=== PATIENT | female | born 1960 | race Asian ===

== ENCOUNTER → 2023-05-14 08:08 | Outpatient (CLI) | payer OTHER, SELFPAY ==
[2023-05-14 09:27] LABS: Add Manual Diff / Slide Review NO; Basophils Absolute Auto 0 /uL (0-100); Basophils Percent Auto 0.2 % (0-2); Eosinophils Absolute Auto 100 /uL (0-450); Hematocrit 34.3 % (36-46); Hemoglobin 11.4 g/dL (12.0-16.0); Lymphocytes Absolute Auto 2400 /uL (1100-4500); Lymphocytes Percent Auto 48.9 % (25-40); Mean Corpuscular HGB Conc 33.3 % (30-36); Mean Corpuscular Hemoglobin 29.4 PG (26-34); Mean Corpuscular Volume 88.3 fL (80-100); Monocytes Absolute Auto 200 /uL (0-900); Monocytes Percent Auto 4.8 % (3-14); Neutrophils Absolute Auto 2200 /uL (1500-7000); Neutrophils Percent Auto 45.1 % (50-75); Platelet Count 255 X10^3/uL (150-400); Red Blood Cell Count 3.88 X10^6/uL (4.0-5.2); White Blood Cell Count 4.9 X10^3/uL (4.5-11.0)
[2023-05-14 09:50] LABS: Alanine Aminotransferase 27 IU/L (<35); Albumin 4.3 g/dL (3.5-5.0); Albumin Globulin Ratio 1.5 (1.0-2.8); Alkaline Phosphatase 70 U/L (38-126); Aspartate Aminotransferase 34 IU/L (14-36); BUN Creatinine Ratio 21.3 (6-22); Bilirubin Total 0.4 mg/dL (0.2-1.3); Blood Urea Nitrogen 13 mg/dL (7-17); Calcium 9.3 mg/dL (8.4-10.2); Carbon Dioxide 27 mmol/L (22-32); Chloride 105 mmol/L (98-107); Cholesterol 142 mg/dL (140-199); Estimated Glomerular Filt Rate > 60 mL/min (>60); Globulin 2.9 g/dL (1.7-4.1); Glucose 96 mg/dL (80-110); HDL Cholesterol 43 mg/dL (40-60); HEMOLYSIS < 15 (0-50); LDL Cholesterol Calculated 80 mg/dL (<100); Sodium 138 mmol/L (137-145); Total Protein 7.2 g/dL (6.3-8.2); Triglycerides 94 mg/dL (35-150)
[2023-05-14 09:51] LABS: Hemoglobin A1C% w Est Avg Glu 6.4 % (4.0-6.0)
[2023-05-14 09:54] LABS: Creatinine Urine Random 76.3 mg/dL
[2023-05-14 09:59] LABS: Microalbumin Urine Random < 0.6 mg/dL (0-1.6)
[2023-05-14 10:41] LABS: HIV 1 & 2 Ab/Ag 4th Gen Combo NEGATIVE (NEGATIVE); Hep C Virus Ab w/Reflex Quant NEGATIVE s/c (NEGATIVE)
== END ==
PROVIDERS: PCP Family Medicine; Referring Provider Family Medicine; Visit Provider Family Medicine
DX: I69.30 Unspecified sequelae of cerebral infarction (principal); I10 Essential (primary) hypertension; Z00.00 Encounter for general adult medical examination without abnormal findings
CPT/HCPCS: 36415; 80053; 80061; 82043; 82570; 83036; 85025; 86803; 87389

== ENCOUNTER → 2023-07-26 10:40 | Outpatient (CLI) | payer OTHER, SELFPAY ==
[2023-07-27 14:31] LABS: Candida species Negative (Negative); Gardnerella vaginalis Negative (Negative); Trichomoas vaginalis Negative (Negative)
== END ==
PROVIDERS: PCP Family Medicine; Visit Provider Physician Assistant Medical
DX: N89.8 Other specified noninflammatory disorders of vagina (principal)
CPT/HCPCS: 87480; 87510; 87660

== ENCOUNTER → 2023-08-11 14:45 | Outpatient (CLI) | payer OTHER, SELFPAY ==
--- NOTE | 2023-08-11 14:45 | DI.US.S_ITS ---
PROCEDURE: US PELVIC COMPLETE INDICATIONS: FOLLOW-UP OVARIAN CYST TECHNIQUE: Real-time scanning was performed of the pelvic organs, with image documentation. Additional endovaginal scanning was necessary due to incomplete visualization of the adnexal and endometrial structures by transabdominal scanning. COMPARISON: None. FINDINGS: Uterus: Absent Ovaries: Right ovary is not seen. Mildly enlarged left ovary measures a volume of 1.5 centimeters. A cyst measures up to 2.9 x 2 centimeters. No significant septations or internal solid component. Other: No pathologic free fluid. IMPRESSION: No priors are available for comparison. 2.9 x 2 centimeter left ovarian simple cyst is present. On ultrasound, no significant septations or solid component is present. By O-RADS criteria, no dedicated follow-up is necessary. O-RADS 2 Dictated by: Nnamdi Francis M.D. on 08/18/2023 at 10:00 Approved by: Nnamdi Francis M.D. on 08/18/2023 at 10:02
== END ==
PROVIDERS: PCP Family Medicine; Referring Provider Family Medicine; Visit Provider Family Medicine
DX: N83.201 Unspecified ovarian cyst, right side (principal); N83.202 Unspecified ovarian cyst, left side
CPT/HCPCS: 76830; 76856

== ENCOUNTER → 2023-11-17 16:00 | Outpatient (CLI) | payer MEDICARE, OTHER, SELFPAY ==
--- NOTE | 2023-11-17 16:03 | DI.MG.S_ITS ---
BILATERAL DIGITAL SCREENING MAMMOGRAM 3D/2D WITH CAD: 11/17/2023 No prior exams were available for comparison. Both breasts are heterogeneously dense, which may obscure small masses (category c / 51-75% glandular tissue). Current study was also evaluated with a Computer Aided Detection (CAD) system. No significant masses, calcifications, or other findings are seen in either breast. IMPRESSION: NEGATIVE There is no mammographic evidence of malignancy. A 1 year screening mammogram is recommended. Based on the Tyrer Cuzick model (a risk assessment model) the patient's lifetime risk is 13.9% and her 10 year risk is 6.9%. According to the ACR, ACS, and NCCN guidelines, an annual breast MRI exam along with mammogram is recommended if the patient's lifetime risk is 20% or greater. This exam was interpreted at Station ID: [id number]. NOTE: For mammograms, a report in lay terms will be sent to the patient. Approximately 15% of breast malignancies will not be visualized mammographically. In the management of a palpable breast mass, a negative mammogram must not discourage biopsy of a clinically suspicious lesion. Electronically Signed By: Nnamdi rivas/[email or web address]:11/18/2023 08:43:14 letter sent: Normal Exam ACR BI-RADS Category 1: Negative [id number]
== END ==
PROVIDERS: PCP Family Medicine; Referring Provider Family Medicine; Visit Provider Family Medicine
DX: Z12.31 Encounter for screening mammogram for malignant neoplasm of breast (principal); R92.333 Mammographic heterogeneous density, bilateral breasts
CPT/HCPCS: 77063; 77067

== ENCOUNTER → 2024-01-22 14:48 | Outpatient (CLI) | payer MEDICARE, OTHER, SELFPAY | PROVIDERS: PCP Family Medicine; Visit Provider Nurse Practitioner Family | DX: R30.0 Dysuria (principal) | CPT/HCPCS: 87077; 87086; 87186 ==

== ENCOUNTER → 2024-05-23 07:56 | Outpatient (CLI) | payer MEDICARE, OTHER, SELFPAY ==
[2024-05-23 08:39] LABS: Add Manual Diff / Slide Review NO; Basophils Absolute Auto 0 /uL (0-100); Basophils Percent Auto 0.1 % (0-2); Eosinophils Absolute Auto 0 /uL (0-450); Eosinophils Percent Auto 0.9 % (2-4); Hematocrit 38.2 % (36-46); Hemoglobin 12.8 g/dL (12.0-16.0); Lymphocytes Absolute Auto 2200 /uL (1100-4500); Lymphocytes Percent Auto 43.7 % (25-40); Mean Corpuscular HGB Conc 33.6 % (30-36); Mean Corpuscular Hemoglobin 30.3 PG (26-34); Mean Corpuscular Volume 90.1 fL (80-100); Monocytes Absolute Auto 300 /uL (0-900); Monocytes Percent Auto 6.9 % (3-14); Neutrophils Absolute Auto 2400 /uL (1500-7000); Neutrophils Percent Auto 48.4 % (50-75); Platelet Count 264 X10^3/uL (150-400); Red Blood Cell Count 4.24 X10^6/uL (4.0-5.2)
[2024-05-23 08:48] LABS: Hemoglobin A1C% w Est Avg Glu 5.9 % (4.0-6.0)
[2024-05-23 09:00] LABS: Alanine Aminotransferase 28 IU/L (<35); Albumin 4.5 g/dL (3.5-5.0); Albumin Globulin Ratio 1.5 (1.0-2.8); Alkaline Phosphatase 93 U/L (38-126); Aspartate Aminotransferase 28 IU/L (14-36); BUN Creatinine Ratio 22.1 (6-22); Bilirubin Total 0.6 mg/dL (0.2-1.3); Blood Urea Nitrogen 15 mg/dL (7-17); Calcium 9.5 mg/dL (8.4-10.2); Carbon Dioxide 26 mmol/L (22-32); Chloride 106 mmol/L (98-107); Cholesterol 127 mg/dL (140-199); Estimated Glomerular Filt Rate > 60 mL/min (>60); Globulin 3.1 g/dL (1.7-4.1); Glucose 101 mg/dL (80-110); HDL Cholesterol 52 mg/dL (40-60); HEMOLYSIS < 15 (0-50); LDL Cholesterol Calculated 64 mg/dL (<100); Potassium 4.1 mmol/L (3.4-5.1); Sodium 140 mmol/L (137-145); Total Protein 7.6 g/dL (6.3-8.2); Triglycerides 55 mg/dL (35-150)
[2024-05-23 09:02] LABS: HEMOLYSIS < 15 (0-50); Iron 87 ug/dL (37-170)
[2024-05-23 09:12] LABS: Percent Iron Saturation 28 % (15-50); Total Iron Binding Capacity 307 ug/dL (265-497); Transferrin 236 mg/dL (206-381); Vitamin D 25 Hydroxy (D3) 43.8 ng/mL (30.0-100.0)
[2024-05-23 09:32] LABS: Ferritin 41 ng/mL (11-264)
[2024-05-23 18:35] LABS: Creatinine Urine Random 71.37 mg/dL
[2024-05-23 18:39] LABS: Microalbumin Urine Random < 0.6 mg/dL (0-1.6)
== END ==
PROVIDERS: PCP Family Medicine; Referring Provider Family Medicine; Visit Provider Family Medicine
DX: I10 Essential (primary) hypertension (principal); R73.03 Prediabetes; D64.9 Anemia, unspecified; Z13.21 Encounter for screening for nutritional disorder; I69.30 Unspecified sequelae of cerebral infarction; E55.9 Vitamin D deficiency, unspecified
CPT/HCPCS: 36415; 80053; 80061; 82043; 82306; 82570; 82728; 83036; 83540; 83550; 85025

== ENCOUNTER → 2024-06-17 11:19 | Outpatient (CLI) | payer MEDICARE, OTHER, SELFPAY | PROVIDERS: Family Provider Family Medicine; PCP Family Medicine; Visit Provider Physician Assistant Medical | DX: R30.0 Dysuria (principal) | CPT/HCPCS: 87077; 87086; 87186 ==

== ENCOUNTER 2024-10-20 13:45 | Outpatient (RCR) | payer MEDICARE, OTHER, SELFPAY ==
--- NOTE | 2024-08-09 15:37 | PT.OIE ---
Current Diagnoses Hemiplegia and hemiparesis following cerebral infarction affecting left non-dominant side (08/09/24) Other abnormalities of gait and mobility (08/09/24) Unspecified abnormalities of gait and mobility (08/09/24) Other lack of coordination (08/09/24) Weakness (08/09/24) Past Medical History (Last Updated 07/26/23 @ 19:54 by Brianne Echeverria PA-C) Atrophic vaginitis History of colonic polyps Ovarian cyst, bilateral Urinary, incontinence, stress female Past Surgical History (Last Updated 05/11/23 @ 22:27 by Kedar Lemus MD) History of cholecystectomy History of hysterectomy Visit Care Team Role Provider Type Kedar Lemus MD Family Provider Physician Primary Care Provider Specialty: Family Practice Obstetrics Address: [facility] [place], [address] Email: [email or web address] Bayron Goncalves MD Attending Provider Non-Staff Referring Provider Specialty: Neurology Address: [address] [place], [address] Email: Physical Therapy Initial Evaluation PT-OP-A Visit Information Start: 08/08/24 15:49 Freq: Status: Active Protocol: Document 08/09/24 10:44 NM (Rec: 08/09/24 12:18 NM [id number]) Out-Patient Physical Therapy Visit Information Visit Information Visit Type Initial Evaluation Visit Note KX after 19 visits Visit Start Time 10:50 Visit Stop Time 11:35 Visit Number 1 Evaluation Information Evaluation Date 08/09/24 Precautions Precautions Hx CVA, falls PT-OP-B Current Condition Start: 08/08/24 15:49 Freq: Status: Active Protocol: Document 08/09/24 10:44 NM (Rec: 08/09/24 12:18 NM [id number]) Current Condition History of Current Condition Current Complaints gait, unstable surfaces, R knee pain w/ length gait History of Current Condition Pt had a stroke in March 01, 2021. Has L hemiplegia; R dominant. Pt has had extensive PT since her stroke in 2020. Pt was in w/c for 4 months following her stroke, then progressed to cane with 3 legs . Previously using an spc for mobility, now only uses for hiking or unstable surfaces. Pt has been ambulated without the cane for 4-5 months now. Pt likes to hike, takes the cane when hiking but able to ambulate without cane for household and most community mobility. Pt did have an AFO for her L ankle to correct her gait but has not used it for 2 years. When ambulating for long times, has foot slap. She stopped going to [facility] for PT 2 weeks ago. She has been doing a lot of muscle strengthening in PT. She recently saw her neurologist, had botox (last dose in June). Next expected dose end of September. Pt has been doing a youtube Dr. June Jansen and [employer] for 2 hours ea day for exercises. Pt reports pretty cj with balance, she has had 2 falls 1 year ago. Currently seeing OT for her hand; hx of speech therapy. Pt reports able to do all ADLs/ IADLs including cooking, cleaning, dressing, independently but slower than normal. Treatment Goals Patient/Caregiver Goals walk better (lift foot better, less to side, L elbow curling ), kicking for swimming PT-OP-C Subjective Start: 08/08/24 15:49 Freq: Status: Active Protocol: Document 08/09/24 10:44 NM (Rec: 08/09/24 12:18 NM [id number]) OP-PT Subjective Patient Comments Patient Comments Pt consents to participate in PT evaluation OP-PT Pain Assessment Comments Pain Comments Pt denies pain during evaluation but does reports R knee pain with length gait PT-OP-D Balance Start: 08/08/24 15:49 Freq: Status: Active Protocol: Document 08/09/24 10:44 NM (Rec: 08/09/24 12:18 NM [id number]) Balance Tests Single Limb Standing Single Limb- Right 30 sec w/ increased sway, med/ lat instability at ankle Single Limb- Left 8 sec w/ increased med/lat instability at ankle Tandem Tandem Standing 30 sec w/ LLE leading PT-OP-G Mobility & Gait Start: 08/08/24 15:49 Freq: Status: Active Protocol: Document 08/09/24 10:44 NM (Rec: 08/09/24 12:18 NM [id number]) OP Mobility Evaluation Bed Mobility Rolling IND Supine to and from Sit IND Transfers Sit to Stand IND from standard chair. Demos tendency for L knee extension more quickly than R knee as transitioning to stance, slight weight shift toward RLE OP Gait Assessment Gait Gait Assistance Required: Standby Assistance Distance (Feet) 150 Assistive Devices Assistive Device None Gait Deviations General Gait Pattern Antalgic,Decreased Feet Clearance Factors Limiting Gait Function Factors Limiting Gait Function Abnormal Tonal Influences, Decreased Activity Tolerance, Decreased Strength,Poor Balance Comments Gait Comments Demos mild L hip circumduction , L plantarflexion and drags toes during swing; as fatigues , demos L foot slap. Slight hip hike on L to complete swing following circumduction. Demos tendency for quick L knee extension during stance with transition into mild hyperextension as fatigues. LUE begins to flex at elbow and wrist and supinate with both effort and fatigue. Limited trunk rotation, slight R lateral lean PT-OP-H Neuro Start: 08/08/24 15:49 Freq: Status: Active Protocol: Document 08/09/24 10:44 NM (Rec: 08/09/24 12:18 NM [id number]) Sensation Evaluation Comments Summary Comments BLE equally intact to light touch sensation Coordination Evaluation Upper Extremity Tests Right Finger to Nose Test Normal Performance Finger to Finger Test Normal Performance Alternate Nose to Finger Test Normal Performance Pronation/Supination Test Normal Performance Left Finger to Nose Test Moderate Impairment Finger to Finger Test Minimal Impairment Alternate Nose to Finger Test Moderate Impairment Pronation/Supination Test Moderate Impairment Lower Extremity Tests Right Alternate Heel to Knee; Heel to Toe Test Normal Performance Heel on Perez Test Normal Performance Foot Tapping Test Normal Performance Drawing a [place] w/Foot Test Normal Performance Left Alternate Heel to Knee; Heel to Toe Test Moderate Impairment Heel on Perez Test Moderate Impairment Foot Tapping Test Minimal Impairment Drawing a [place] w/Foot Test Minimal Impairment Muscle Tone Tone Assessment Left Upper Extremity Muscle Tone Comments Tendency for L elbow flex, wrist flex, and finger flex, supination with exertion Posturally thumb and MPJ hyperextension Left Lower Extremity Flexor Tone Description Normal Extensor Tone Description Mild Hypertonicity Muscle Tone Comments tendency for knee ext, plantarflexion and ankle inversion PT-OP-K Range of Motion Start: 08/08/24 15:49 Freq: Status: Active Protocol: Document 08/09/24 10:44 NM (Rec: 08/09/24 12:18 NM [id number]) Ankle and Foot Goniometric Range of Motion Ankle and Foot Left Dorsiflexion with Knee Flexed 10 Dorsiflexion with Knee Extended 8 Plantarflexion 40 Comments demos tendency for inversion PT-OP-M Strength Start: 08/08/24 15:49 Freq: Status: Active Protocol: Document 08/09/24 10:44 NM (Rec: 08/09/24 12:18 NM [id number]) Hip Strength Hip Manual Muscle Testing Right Flexion (L2) 4+ Good+ Extension (S1) 4 Good Abduction 4 Good Adduction 4+ Good+ External Rotation 4+ Good+ Internal Rotation 4+ Good+ Left Flexion (L2) 4- Good- Extension (S1) 3+ Fair+ Abduction 4- Good- Adduction 4 Good External Rotation 4- Good- Internal Rotation 4 Good Knee Strength Knee Manual Muscle Testing Right Flexion (S2) 4+ Good+ Extension (L3) 4+ Good+ Left Flexion (S2) 4- Good- Extension (L3) 4- Good- Comments audible crepitus Ankle/Foot Strength Ankle and Foot Manual Muscle Testing Right Dorsiflexion (L4) 4+ Good+ Plantarflexion (S1) 4+ Good+ Inversion 4+ Good+ Eversion (S1) 4+ Good+ Comments tested in sitting Left Dorsiflexion (L4) 3+ Fair+ Plantarflexion (S1) 4 Good Inversion 4 Good Eversion (S1) 3 Fair Comments tested in sitting PT-OP-T Assessment and Plan Start: 08/08/24 15:49 Freq: Status: Active Protocol: Document 08/09/24 10:44 NM (Rec: 08/09/24 12:18 NM [id number]) Physical Therapy Assessment Rehab Potential Rehabilitation Potential Good Evaluation Complexity Clinical Presentation at Evaluation Stable Impairments Impairments Activity Tolerance,Balance, Functional Activities, Functional Mobility,Gait,Pain, Posture,ROM,Sensation,Soft Tissue Mobility,Strength,Tone, Transfers Other Concerns Barriers to Rehabilitation Pt has had PT for several years to address gait and strength deficits. She is planning several week-long trips during current plan of care (cross country and international) that will limit her ability to attend PT during current plan of care; pt resistant to shorter plan of care with plan to come back with new referral due to travel even with education about how must see PT within current plan of care. Goals Four Impairment difficulty with kicking LLE for swimming, 3+/5 MMT Short Term Goal (STG) Pt will increase L hip ext strength to at least 4/5 MMT in order to improve ability to kick at edge of pool STG Duration 8 weeks Three Impairment 30 sec STS score 8 from standard chair Short Term Goal (STG) Pt will demo L knee hyperextension with ascent during STS transfers <50% of the time without cueing in order to demonstrate increased quad strength STG Duration 6 weeks Custodial Goal (LTG) Pt will increase 30 sec STS score >10 from standard chair to demonstrate improved body mechanics during transfers and increased BLE strength LTG Duration 12 weeks Two Impairment activity tolerance, balance Custodial Goal (LTG) If appropriate, pt will be educated on use of trek poles vs spc for stability during hiking LTG Duration 12 weeks One Impairment 6 MWT distance 1009 ft, no AD, no AFO Short Term Goal (STG) Pt will demonstrate more equal step length and less foot slap >50% of the time in order to demonstrate improved LLE strength STG Duration 6 weeks Manager Cardiac Cath Goal (LTG) Pt will increase 6 MWT distance >1000 ft with more equal step length and without dragging L foot LTG Duration 12 weeks Assessment Summary Assessment Pt is a 64 y.o. female with L hemiplegia presenting with abnormalities with gait, balance, and strength related to her CVA. Pt had her CVA is 2020; she had had previous PT for her condition. Pt is active and participates in at least 2 hours of exercise daily, in addition to hikes and ADLs. She demos L plantarflexion tone and L hip circumduction during swing phase of gait and mild hyperextension with stance phase; pt does demonstrate L foot slap as fatigue occurs. Does not use an AD for mobility except to hike and no longer uses her AFO. Increased flexor tone LUE during effort and gait. Pt demos knee hyperextension during sit to stand transfers. PT educated pt on exam findings and plan of care. Pt would benefit from skilled PT for progressive strengthening and gait training in order to improve symptom management and mobility. Physical Therapy Plan Frequency and Duration Frequency of Treatment 2x/Week Duration of treatment (weeks) 12 Plan of Care Start Date 08/09/24 Plan of Care End Date 11/03/24 Therapeutic Interventions Therapeutic Interventions Aquatic Therapy,Balance Training,Coordination Training ,Gait Training,Home Exercise Program,Joint Mobilizations, Manual Therapy,Neuromuscular Re-education,Orthotic/ Prosthetic Management,Patient/ Caregiver Education,Self-Care/ Home Management,Sensory Integration,Soft Tissue Mobilization,Taping, Therapeutic Activities, Therapeutic Exercises Modalities Cold Pack/Ice Massage,Electric Stimulation,Hot Packs, Ultrasound Next Visit Focus/Plan Next Note Type Treatment Note Next Visit Plan ankle DF strengthening estim to ankle DF STS, quad strength, uni leg press
--- NOTE | 2024-08-11 11:28 | PT.OTN ---
Current Diagnoses Hemiplegia and hemiparesis following cerebral infarction affecting left non-dominant side (08/11/24) Other abnormalities of gait and mobility (08/11/24) Unspecified abnormalities of gait and mobility (08/11/24) Other lack of coordination (08/11/24) Weakness (08/11/24) Physical Therapy Treatment Note PT-OP-A Visit Information Start: 08/08/24 15:49 Freq: Status: Active Protocol: Document 08/11/24 09:03 NM (Rec: 08/11/24 09:46 NM [id number]) Out-Patient Physical Therapy Visit Information Visit Information Visit Type Treatment Note Visit Note KX after 19 visits Visit Start Time 09:04 Visit Stop Time 09:45 Visit Number 2 Evaluation Information Evaluation Date 08/09/24 Precautions Precautions Hx CVA, falls PT-OP-B Current Condition Start: 08/08/24 15:49 Freq: Status: Active Protocol: Document 08/09/24 10:44 NM (Rec: 08/09/24 12:18 NM [id number]) Current Condition History of Current Condition Current Complaints gait, unstable surfaces, R knee pain w/ length gait History of Current Condition Pt had a stroke in March 01, 2021. Has L hemiplegia; R dominant. Pt has had extensive PT since her stroke in 2020. Pt was in w/c for 4 months following her stroke, then progressed to cane with 3 legs . Previously using an spc for mobility, now only uses for hiking or unstable surfaces. Pt has been ambulated without the cane for 4-5 months now. Pt likes to hike, takes the cane when hiking but able to ambulate without cane for household and most community mobility. Pt did have an AFO for her L ankle to correct her gait but has not used it for 2 years. When ambulating for long times, has foot slap. She stopped going to IR for PT 2 weeks ago. She has been doing a lot of muscle strengthening in PT. She recently saw her neurologist, had botox (last dose in June). Next expected dose end of September. Pt has been doing a youtube Dr. June Jansen and [employer] for 2 hours ea day for exercises. Pt reports pretty cj with balance, she has had 2 falls 1 year ago. Currently seeing OT for her hand; hx of speech therapy. Pt reports able to do all ADLs/ IADLs including cooking, cleaning, dressing, independently but slower than normal. Treatment Goals Patient/Caregiver Goals walk better (lift foot better, less to side, L elbow curling ), kicking for swimming PT-OP-C Subjective Start: 08/08/24 15:49 Freq: Status: Active Protocol: Document 08/11/24 09:03 NM (Rec: 08/11/24 11:13 NM [id number]) OP-PT Subjective Patient Comments Patient Comments Pt reports no changes since evaluation. Eager to begin PT PT-OP-D Balance Start: 08/08/24 15:49 Freq: Status: Active Protocol: Document 08/09/24 10:44 NM (Rec: 08/09/24 12:18 NM [id number]) Balance Tests Single Limb Standing Single Limb- Right 30 sec w/ increased sway, med/ lat instability at ankle Single Limb- Left 8 sec w/ increased med/lat instability at ankle Tandem Tandem Standing 30 sec w/ LLE leading PT-OP-G Mobility & Gait Start: 08/08/24 15:49 Freq: Status: Active Protocol: Document 08/09/24 10:44 NM (Rec: 08/09/24 12:18 NM [id number]) OP Mobility Evaluation Bed Mobility Rolling IND Supine to and from Sit IND Transfers Sit to Stand IND from standard chair. Demos tendency for L knee extension more quickly than R knee as transitioning to stance, slight weight shift toward RLE OP Gait Assessment Gait Gait Assistance Required: Standby Assistance Distance (Feet) 150 Assistive Devices Assistive Device None Gait Deviations General Gait Pattern Antalgic,Decreased Feet Clearance Factors Limiting Gait Function Factors Limiting Gait Function Abnormal Tonal Influences, Decreased Activity Tolerance, Decreased Strength,Poor Balance Comments Gait Comments Demos mild L hip circumduction , L plantarflexion and drags toes during swing; as fatigues , demos L foot slap. Slight hip hike on L to complete swing following circumduction. Demos tendency for quick L knee extension during stance with transition into mild hyperextension as fatigues. LUE begins to flex at elbow and wrist and supinate with both effort and fatigue. Limited trunk rotation, slight R lateral lean PT-OP-H Neuro Start: 08/08/24 15:49 Freq: Status: Active Protocol: Document 08/09/24 10:44 NM (Rec: 08/09/24 12:18 NM [id number]) Sensation Evaluation Comments Summary Comments BLE equally intact to light touch sensation Coordination Evaluation Upper Extremity Tests Right Finger to Nose Test Normal Performance Finger to Finger Test Normal Performance Alternate Nose to Finger Test Normal Performance Pronation/Supination Test Normal Performance Left Finger to Nose Test Moderate Impairment Finger to Finger Test Minimal Impairment Alternate Nose to Finger Test Moderate Impairment Pronation/Supination Test Moderate Impairment Lower Extremity Tests Right Alternate Heel to Knee; Heel to Toe Test Normal Performance Heel on [place] Test Normal Performance Foot Tapping Test Normal Performance Drawing [place] w/Foot Test Normal Performance Left Alternate Heel to Knee; Heel to Toe Test Moderate Impairment Heel on [place] Test Moderate Impairment Foot Tapping Test Minimal Impairment Drawing a [place] w/Foot Test Minimal Impairment Muscle Tone Tone Assessment Left Upper Extremity Muscle Tone Comments Tendency for L elbow flex, wrist flex, and finger flex, supination with exertion Posturally thumb and MPJ hyperextension Left Lower Extremity Flexor Tone Description Normal Extensor Tone Description Mild Hypertonicity Muscle Tone Comments tendency for knee ext, plantarflexion and ankle inversion PT-OP-K Range of Motion Start: 08/08/24 15:49 Freq: Status: Active Protocol: Document 08/09/24 10:44 NM (Rec: 08/09/24 12:18 NM [id number]) Ankle and Foot Goniometric Range of Motion Ankle and Foot Left Dorsiflexion with Knee Flexed 10 Dorsiflexion with Knee Extended 8 Plantarflexion 40 Comments demos tendency for inversion PT-OP-M Strength Start: 08/08/24 15:49 Freq: Status: Active Protocol: Document 08/09/24 10:44 NM (Rec: 08/09/24 12:18 NM [id number]) Hip Strength Hip Manual Muscle Testing Right Flexion (L2) 4+ Good+ Extension (S1) 4 Good Abduction 4 Good Adduction 4+ Good+ External Rotation 4+ Good+ Internal Rotation 4+ Good+ Left Flexion (L2) 4- Good- Extension (S1) 3+ Fair+ Abduction 4- Good- Adduction 4 Good External Rotation 4- Good- Internal Rotation 4 Good Knee Strength Knee Manual Muscle Testing Right Flexion (S2) 4+ Good+ Extension (L3) 4+ Good+ Left Flexion (S2) 4- Good- Extension (L3) 4- Good- Comments audible crepitus Ankle/Foot Strength Ankle and Foot Manual Muscle Testing Right Dorsiflexion (L4) 4+ Good+ Plantarflexion (S1) 4+ Good+ Inversion 4+ Good+ Eversion (S1) 4+ Good+ Comments tested in sitting Left Dorsiflexion (L4) 3+ Fair+ Plantarflexion (S1) 4 Good Inversion 4 Good Eversion (S1) 3 Fair Comments tested in sitting PT-OP-Q Treatments Start: 08/08/24 15:49 Freq: Status: Active Protocol: Document 08/11/24 09:03 NM (Rec: 08/11/24 09:46 NM [id number]) Therapeutic Exercises Sitting Exercises ankle eversion Sitting Exercise Name HEP Side left Resistance level 1 band Reps/Minutes 20 Comments cued set up c/ band under opp foot ankle dorsiflexion Sitting Exercise Name 1. AAROM, 2. AROM, 3. c/ band (HEP) Side left Reps/Minutes 1. 15 c/ towel assist, 2. 15, 3. 10 c/ level 2 band (fig 4 set up) Comments good progress to banded therex ; cued control steven ecc as able Standing Exercises TKE Standing Exercise Name trialed in PT Side left Equipment Used ball behind knee at wall Reps/Minutes 15 Comments PT provide verbal cues and tactile facil to prevent locking knee Other Exercises crouched ambulation Other Exercise Name for quad strength Side bilateral Resistance AROM Reps/Minutes 2x25 ft Comments increased time needed; close SBA from PT PT-OP-R Modalities Start: 08/11/24 09:03 Freq: Status: Active Protocol: Document 08/11/24 09:03 NM (Rec: 08/11/24 09:46 NM [id number]) Electric Stimulation Electric Stimulation Biphasic Body Location L anterior tibialis Intensity 9.8 Frequency 35 Pulse Rate 300 Cycle 10/10 Ramp 2.0 Comments Performed in sitting and standing. 15 minutes total time, Performed in conjuction with exercises to decrease foot drop: (1) L Ankle Dorsiflexion AROM c/o band, (2 ) c/ level 1 band against resistance, (3) step taps to 2 -4 step (progressing to double taps while maintaining ankle DF), (4) stepping over 2 step with 1 hand support for balance with controlled eccentric lowering. Skin assessed during and afterward. No redness, burning , or other skin changes; monitored closely throughout session. PT-OP-T Assessment and Plan Start: 08/08/24 15:49 Freq: Status: Active Protocol: Document 08/11/24 09:03 NM (Rec: 08/11/24 09:46 NM [id number]) Physical Therapy Assessment Goals Four Impairment difficulty with kicking LLE for swimming, 3+/5 MMT Short Term Goal (STG) Pt will increase L hip ext strength to at least 4/5 MMT in order to improve ability to kick at edge of pool STG Duration 8 weeks Three Impairment 30 sec STS score 8 from standard chair Short Term Goal (STG) Pt will demo L knee hyperextension with ascent during STS transfers <50% of the time without cueing in order to demonstrate increased quad strength STG Duration 6 weeks [facility] Goal (LTG) Pt will increase 30 sec STS score >10 from standard chair to demonstrate improved body mechanics during transfers and increased BLE strength LTG Duration 12 weeks Two Impairment activity tolerance, balance Senior Asic Design Engineer Goal (LTG) If appropriate, pt will be educated on use of trek poles vs spc for stability during hiking LTG Duration 12 weeks One Impairment 6 MWT distance 1009 ft, no AD, no AFO Short Term Goal (STG) Pt will demonstrate more equal step length and less foot slap >50% of the time in order to demonstrate improved LLE strength STG Duration 6 weeks Senior [employer]ic Design Engineer Goal (LTG) Pt will increase 6 MWT distance >1000 ft with more equal step length and without dragging L foot LTG Duration 12 weeks Assessment Summary Assessment Pt tolerated session well without any pain, especially in R stance limb during activities. Initiated ankle dorsiflexion strengthening. Trialed use of e-stim to promote better foot clearance. Able to maintain ankle dorsiflexion while stepping over a 2 box but tendency for LUE flexor pattern and challenging to transition during weight acceptance. Demos strong pronation with stance. Initiated TKE to reduce L knee hyperextension with gait and transfers; pt unable to assess without verbal and tactile feedback from PT whether knee hyperextension occuring. Improved quad activation with reps. Pt would benefit from skilled PT for progressive strengthening and gait training in order to improve foot clearance and gait speed. Physical Therapy Plan Frequency and Duration Frequency of Treatment 2x/Week Duration of treatment (weeks) 12 Plan of Care Start Date 08/09/24 Plan of Care End Date 11/03/24 Therapeutic Interventions Therapeutic Interventions Aquatic Therapy,Balance Training,Coordination Training ,Gait Training,Home Exercise Program,Joint Mobilizations, Manual Therapy,Neuromuscular Re-education,Orthotic/ Prosthetic Management,Patient/ Caregiver Education,Self-Care/ Home Management,Sensory Integration,Soft Tissue Mobilization,Taping, Therapeutic Activities, Therapeutic Exercises Modalities Cold Pack/Ice Massage,Electric Stimulation,Hot Packs, Ultrasound Next Visit Focus/Plan Next Note Type Treatment Note Next Visit Plan Plan of care: gait training, ankle DF and quad strengthening. Assess need for AFO vs shoe assist to prevent foot drop. Unstable surface training outdoors w/ 1 trek pole for hiking. Assess shoe wear for support Continue ankle DF training: cont DF w/ e-stim; progress banded DF, banded eccentric DF , rocking on towel, rockerboard, banded march, heel walk, DF c/ beanbags Stretch hip ER/IR, ankle inv/ ev strength Continue with quad strengthening to prevent hyperext: retrain proprio to limit hyperext; TKE c/ ball and band, crouched ambulation, STS, quad strength, uni leg press; progress to squat hold w/ star/clock
--- NOTE | 2024-08-15 12:15 | PT.OTN ---
Current Diagnoses Hemiplegia and hemiparesis following cerebral infarction affecting left non-dominant side (08/15/24) Other abnormalities of gait and mobility (08/15/24) Unspecified abnormalities of gait and mobility (08/15/24) Other lack of coordination (08/15/24) Weakness (08/15/24) Physical Therapy Treatment Note PT-OP-A Visit Information Start: 08/08/24 15:49 Freq: Status: Active Protocol: Document 08/15/24 11:35 SP (Rec: 08/15/24 12:33 SP [id number]) Out-Patient Physical Therapy Visit Information Visit Information Visit Type Treatment Note Visit Note KX after 19 visits Visit Start Time 11:35 Visit Stop Time 12:15 Visit Number 3 Number of DEVICE PROCESSING ENGINEER Visits 1 Precautions Precautions Hx CVA, falls PT-OP-B Current Condition Start: 08/08/24 15:49 Freq: Status: Active Protocol: Document 08/09/24 10:44 NM (Rec: 08/09/24 12:18 NM [id number]) Current Condition History of Current Condition Current Complaints gait, unstable surfaces, R knee pain w/ length gait History of Current Condition Pt had a stroke in March 01, 2021. Has L hemiplegia; R dominant. Pt has had extensive PT since her stroke in 2020. Pt was in w/c for 4 months following her stroke, then progressed to cane with 3 legs . Previously using an spc for mobility, now only uses for hiking or unstable surfaces. Pt has been ambulated without the cane for 4-5 months now. Pt likes to hike, takes the cane when hiking but able to ambulate without cane for household and most community mobility. Pt did have an AFO for her L ankle to correct her gait but has not used it for 2 years. When ambulating for long times, has foot slap. She stopped going to IR for PT 2 weeks ago. She has been doing a lot of muscle strengthening in PT. She recently saw her neurologist, had botox (last dose in June). Next expected dose end of September. Pt has been doing a youtube Dr. June Jansen and [employer] for 2 hours ea day for exercises. Pt reports pretty cj with balance, she has had 2 falls 1 year ago. Currently seeing OT for her hand; hx of speech therapy. Pt reports able to do all ADLs/ IADLs including cooking, cleaning, dressing, independently but slower than normal. Treatment Goals Patient/Caregiver Goals walk better (lift foot better, less to side, L elbow curling ), kicking for swimming PT-OP-C Subjective Start: 08/08/24 15:49 Freq: Status: Active Protocol: Document 08/15/24 11:35 SP (Rec: 08/15/24 12:33 SP [id number]) OP-PT Subjective Patient Comments Patient Comments Pt reports felt better after last tx. PT-OP-D Balance Start: 08/08/24 15:49 Freq: Status: Active Protocol: Document 08/09/24 10:44 NM (Rec: 08/09/24 12:18 NM [id number]) Balance Tests Single Limb Standing Single Limb- Right 30 sec w/ increased sway, med/ lat instability at ankle Single Limb- Left 8 sec w/ increased med/lat instability at ankle Tandem Tandem Standing 30 sec w/ LLE leading PT-OP-G Mobility & Gait Start: 08/08/24 15:49 Freq: Status: Active Protocol: Document 08/09/24 10:44 NM (Rec: 08/09/24 12:18 NM [id number]) OP Mobility Evaluation Bed Mobility Rolling IND Supine to and from Sit IND Transfers Sit to Stand IND from standard chair. Demos tendency for L knee extension more quickly than R knee as transitioning to stance, slight weight shift toward RLE OP Gait Assessment Gait Gait Assistance Required: Standby Assistance Distance (Feet) 150 Assistive Devices Assistive Device None Gait Deviations General Gait Pattern Antalgic,Decreased Feet Clearance Factors Limiting Gait Function Factors Limiting Gait Function Abnormal Tonal Influences, Decreased Activity Tolerance, Decreased Strength,Poor Balance Comments Gait Comments Demos mild L hip circumduction , L plantarflexion and drags toes during swing; as fatigues , demos L foot slap. Slight hip hike on L to complete swing following circumduction. Demos tendency for quick L knee extension during stance with transition into mild hyperextension as fatigues. LUE begins to flex at elbow and wrist and supinate with both effort and fatigue. Limited trunk rotation, slight R lateral lean PT-OP-H Neuro Start: 08/08/24 15:49 Freq: Status: Active Protocol: Document 08/09/24 10:44 NM (Rec: 08/09/24 12:18 NM [id number]) Sensation Evaluation Comments Summary Comments BLE equally intact to light touch sensation Coordination Evaluation Upper Extremity Tests Right Finger to Nose Test Normal Performance Finger to Finger Test Normal Performance Alternate Nose to Finger Test Normal Performance Pronation/Supination Test Normal Performance Left Finger to Nose Test Moderate Impairment Finger to Finger Test Minimal Impairment Alternate Nose to Finger Test Moderate Impairment Pronation/Supination Test Moderate Impairment Lower Extremity Tests Right Alternate Heel to Knee; Heel to Toe Test Normal Performance Heel on [place] Test Normal Performance Foot Tapping Test Normal Performance Drawing a [place] w/Foot Test Normal Performance Left Alternate Heel to Knee; Heel to Toe Test Moderate Impairment Heel on [place] Test Moderate Impairment Foot Tapping Test Minimal Impairment Drawing a [place] w/Foot Test Minimal Impairment Muscle Tone Tone Assessment Left Upper Extremity Muscle Tone Comments Tendency for L elbow flex, wrist flex, and finger flex, supination with exertion Posturally thumb and MPJ hyperextension Left Lower Extremity Flexor Tone Description Normal Extensor Tone Description Mild Hypertonicity Muscle Tone Comments tendency for knee ext, plantarflexion and ankle inversion PT-OP-K Range of Motion Start: 08/08/24 15:49 Freq: Status: Active Protocol: Document 08/09/24 10:44 NM (Rec: 08/09/24 12:18 NM [id number]) Ankle and Foot Goniometric Range of Motion Ankle and Foot Left Dorsiflexion with Knee Flexed 10 Dorsiflexion with Knee Extended 8 Plantarflexion 40 Comments demos tendency for inversion PT-OP-M Strength Start: 08/08/24 15:49 Freq: Status: Active Protocol: Document 08/09/24 10:44 NM (Rec: 08/09/24 12:18 NM [id number]) Hip Strength Hip Manual Muscle Testing Right Flexion (L2) 4+ Good+ Extension (S1) 4 Good Abduction 4 Good Adduction 4+ Good+ External Rotation 4+ Good+ Internal Rotation 4+ Good+ Left Flexion (L2) 4- Good- Extension (S1) 3+ Fair+ Abduction 4- Good- Adduction 4 Good External Rotation 4- Good- Internal Rotation 4 Good Knee Strength Knee Manual Muscle Testing Right Flexion (S2) 4+ Good+ Extension (L3) 4+ Good+ Left Flexion (S2) 4- Good- Extension (L3) 4- Good- Comments audible crepitus Ankle/Foot Strength Ankle and Foot Manual Muscle Testing Right Dorsiflexion (L4) 4+ Good+ Plantarflexion (S1) 4+ Good+ Inversion 4+ Good+ Eversion (S1) 4+ Good+ Comments tested in sitting Left Dorsiflexion (L4) 3+ Fair+ Plantarflexion (S1) 4 Good Inversion 4 Good Eversion (S1) 3 Fair Comments tested in sitting PT-OP-Q Treatments Start: 08/08/24 15:49 Freq: Status: Active Protocol: Document 08/15/24 11:35 SP (Rec: 08/15/24 12:33 SP [id number]) Therapeutic Exercises Sitting Exercises Toe Abduction Sitting Exercise Name added to HEP /c HO Side left Equipment Used seated>standing Reps/Minutes 5 SH x 5 each position Comments cued relax LUE & fingers at side ankle dorsiflexion Sitting Exercise Name 1.AROM, 2. c/ Lv 2 band (HEP) Side left Equipment Used /c Biphasic NMES Reps/Minutes 10 SH x10 Comments good progress to banded therex ; cued control steven ecc as able Gait Training Gait Activity Hallway Description after hurdles Comments LLE hip and knee flexion, DF, Heel toe advancement, cued arm swing, L hand relaxed more, L toes extension lowering to floor if can with stability for support reduction toe curl swing phase reported. Neuro Re-Education Treatment Balance Activities hurdles Details reciprocal stepping Equipment 6 hurdles Comments hand glide rail> no rail CGA/close SBA, cued heel toe- R toe caught1 hurdles PT-OP-R Modalities Start: 08/11/24 09:03 Freq: Status: Active Protocol: Document 08/15/24 11:35 SP (Rec: 08/15/24 12:33 SP [id number]) Electric Stimulation Electric Stimulation Biphasic Body Location L anterior tibialis Intensity 25 Frequency 35 Pulse Rate 300 Cycle 10/10 Ramp 2.0 Comments Performed in sitting and standing with NMES. 15 minutes total time, Performed in conjuction with exercises to decrease foot drop: (1) L Ankle Dorsiflexion AROM c/o band, (2) c/ level 1 band against resistance, (3) step taps to 2-4 step (progressing to double taps while maintaining ankle DF), (4) stepping over 2 step with 1 hand support for balance with controlled eccentric lowering. Skin assessed during and afterward. No redness, burning , or other skin changes; monitored closely throughout session. PT-OP-T Assessment and Plan Start: 08/08/24 15:49 Freq: Status: Active Protocol: Document 08/15/24 11:35 SP (Rec: 08/15/24 12:33 SP [id number]) Physical Therapy Assessment Goals Four Impairment difficulty with kicking LLE for swimming, 3+/5 MMT Short Term Goal (STG) Pt will increase L hip ext strength to at least 4/5 MMT in order to improve ability to kick at edge of pool STG Duration 8 weeks Three Impairment 30 sec STS score 8 from standard chair Short Term Goal (STG) Pt will demo L knee hyperextension with ascent during STS transfers <50% of the time without cueing in order to demonstrate increased quad strength STG Duration 6 weeks [facility] Goal (LTG) Pt will increase 30 sec STS score >10 from standard chair to demonstrate improved body mechanics during transfers and increased BLE strength LTG Duration 12 weeks Two Impairment activity tolerance, balance Hedge Fund Accountant Goal (LTG) If appropriate, pt will be educated on use of trek poles vs spc for stability during hiking LTG Duration 12 weeks One Impairment 6 MWT distance 1009 ft, no AD, no AFO Short Term Goal (STG) Pt will demonstrate more equal step length and less foot slap >50% of the time in order to demonstrate improved LLE strength STG Duration 6 weeks Hedge Fund Accountant Goal (LTG) Pt will increase 6 MWT distance >1000 ft with more equal step length and without dragging L foot LTG Duration 12 weeks Assessment Summary Assessment Pt improved DF and toe ext LLE DF post NMES, incorporated in standing step activities progression then initiated jennifer stepping and carryover gait hallway distance. Cued rhomboid and TA draw in for midline stability support with noted improvement not needing to contact rail during hurdles. Added toe ABD ex with noted extension for support extension for support toe ext durign DF gait. Cues for BUEs and L hand relaxed at side during ex and gait multitask progression awareness. Physical Therapy Plan Frequency and Duration Frequency of Treatment 2x/Week Duration of treatment (weeks) 12 Plan of Care Start Date 08/09/24 Plan of Care End Date 11/03/24 Therapeutic Interventions Therapeutic Interventions Aquatic Therapy,Balance Training,Coordination Training ,Gait Training,Home Exercise Program,Joint Mobilizations, Manual Therapy,Neuromuscular Re-education,Orthotic/ Prosthetic Management,Patient/ Caregiver Education,Self-Care/ Home Management,Sensory Integration,Soft Tissue Mobilization,Taping, Therapeutic Activities, Therapeutic Exercises Modalities Cold Pack/Ice Massage,Electric Stimulation,Hot Packs, Ultrasound Next Visit Focus/Plan Next Note Type Treatment Note Next Visit Plan next consider L HS strengthening support hyperextension midstance. Plan of care: gait training, ankle DF and quad strengthening. Assess need for AFO vs shoe assist to prevent foot drop. Unstable surface training outdoors w/ 1 trek pole for hiking. Assess shoe wear for support Continue ankle DF training: cont DF w/ e-stim; progress banded DF, banded eccentric DF , rocking on towel, rockerboard, banded march, heel walk, DF c/ beanbags Stretch hip ER/IR, ankle inv/ ev strength Continue with quad strengthening to prevent hyperext: retrain proprio to limit hyperext; TKE c/ ball and band, crouched ambulation, STS, quad strength, uni leg press; progress to squat hold w/ star/clock
--- NOTE | 2024-08-18 10:50 | PT.OTN ---
Current Diagnoses Hemiplegia and hemiparesis following cerebral infarction affecting left non-dominant side (08/18/24) Other abnormalities of gait and mobility (08/18/24) Unspecified abnormalities of gait and mobility (08/18/24) Other lack of coordination (08/18/24) Weakness (08/18/24) Physical Therapy Treatment Note PT-OP-A Visit Information Start: 08/08/24 15:49 Freq: Status: Active Protocol: Document 08/18/24 09:49 NM (Rec: 08/18/24 10:50 NM [id number]) Out-Patient Physical Therapy Visit Information Visit Information Visit Type Treatment Note Visit Note KX after 19 visits Visit Start Time 09:49 Visit Stop Time 10:31 Visit Number 4 Number of COLLECTION SPECIALIST Visits 0 Evaluation Information Evaluation Date 08/09/24 Precautions Precautions Hx CVA, falls PT-OP-B Current Condition Start: 08/08/24 15:49 Freq: Status: Active Protocol: Document 08/09/24 10:44 NM (Rec: 08/09/24 12:18 NM [id number]) Current Condition History of Current Condition Current Complaints gait, unstable surfaces, R knee pain w/ length gait History of Current Condition Pt had a stroke in March 01, 2021. Has L hemiplegia; R dominant. Pt has had extensive PT since her stroke in 2020. Pt was in w/c for 4 months following her stroke, then progressed to cane with 3 legs . Previously using an spc for mobility, now only uses for hiking or unstable surfaces. Pt has been ambulated without the cane for 4-5 months now. Pt likes to hike, takes the cane when hiking but able to ambulate without cane for household and most community mobility. Pt did have an AFO for her L ankle to correct her gait but has not used it for 2 years. When ambulating for long times, has foot slap. She stopped going to IR for PT 2 weeks ago. She has been doing a lot of muscle strengthening in PT. She recently saw her neurologist, had botox (last dose in June). Next expected dose end of September. Pt has been doing a youtube Dr. June Jansen and [employer] for 2 hours ea day for exercises. Pt reports pretty cj with balance, she has had 2 falls 1 year ago. Currently seeing OT for her hand; hx of speech therapy. Pt reports able to do all ADLs/ IADLs including cooking, cleaning, dressing, independently but slower than normal. Treatment Goals Patient/Caregiver Goals walk better (lift foot better, less to side, L elbow curling ), kicking for swimming PT-OP-C Subjective Start: 08/08/24 15:49 Freq: Status: Active Protocol: Document 08/18/24 09:49 NM (Rec: 08/18/24 10:50 NM [id number]) OP-PT Subjective Patient Comments Patient Comments Pt reports trying to fish bait picker her L foot more, thinks doing a better job of lifting her foot. PT-OP-D Balance Start: 08/08/24 15:49 Freq: Status: Active Protocol: Document 08/09/24 10:44 NM (Rec: 08/09/24 12:18 NM [id number]) Balance Tests Single Limb Standing Single Limb- Right 30 sec w/ increased sway, med/ lat instability at ankle Single Limb- Left 8 sec w/ increased med/lat instability at ankle Tandem Tandem Standing 30 sec w/ LLE leading PT-OP-G Mobility & Gait Start: 08/08/24 15:49 Freq: Status: Active Protocol: Document 08/09/24 10:44 NM (Rec: 08/09/24 12:18 NM [id number]) OP Mobility Evaluation Bed Mobility Rolling IND Supine to and from Sit IND Transfers Sit to Stand IND from standard chair. Demos tendency for L knee extension more quickly than R knee as transitioning to stance, slight weight shift toward RLE OP Gait Assessment Gait Gait Assistance Required: Standby Assistance Distance (Feet) 150 Assistive Devices Assistive Device None Gait Deviations General Gait Pattern Antalgic,Decreased Feet Clearance Factors Limiting Gait Function Factors Limiting Gait Function Abnormal Tonal Influences, Decreased Activity Tolerance, Decreased Strength,Poor Balance Comments Gait Comments Demos mild L hip circumduction , L plantarflexion and drags toes during swing; as fatigues , demos L foot slap. Slight hip hike on L to complete swing following circumduction. Demos tendency for quick L knee extension during stance with transition into mild hyperextension as fatigues. LUE begins to flex at elbow and wrist and supinate with both effort and fatigue. Limited trunk rotation, slight R lateral lean PT-OP-H Neuro Start: 08/08/24 15:49 Freq: Status: Active Protocol: Document 08/09/24 10:44 NM (Rec: 08/09/24 12:18 NM [id number]) Sensation Evaluation Comments Summary Comments BLE equally intact to light touch sensation Coordination Evaluation Upper Extremity Tests Right Finger to Nose Test Normal Performance Finger to Finger Test Normal Performance Alternate Nose to Finger Test Normal Performance Pronation/Supination Test Normal Performance Left Finger to Nose Test Moderate Impairment Finger to Finger Test Minimal Impairment Alternate Nose to Finger Test Moderate Impairment Pronation/Supination Test Moderate Impairment Lower Extremity Tests Right Alternate Heel to Knee; Heel to Toe Test Normal Performance Heel on Perez Test Normal Performance Foot Tapping Test Normal Performance Drawing a Upper [place] w/Foot Test Normal Performance Left Alternate Heel to Knee; Heel to Toe Test Moderate Impairment Heel on Perez Test Moderate Impairment Foot Tapping Test Minimal Impairment Drawing a Upper [place] w/Foot Test Minimal Impairment Muscle Tone Tone Assessment Left Upper Extremity Muscle Tone Comments Tendency for L elbow flex, wrist flex, and finger flex, supination with exertion Posturally thumb and MPJ hyperextension Left Lower Extremity Flexor Tone Description Normal Extensor Tone Description Mild Hypertonicity Muscle Tone Comments tendency for knee ext, plantarflexion and ankle inversion PT-OP-K Range of Motion Start: 08/08/24 15:49 Freq: Status: Active Protocol: Document 08/09/24 10:44 NM (Rec: 08/09/24 12:18 NM [id number]) Ankle and Foot Goniometric Range of Motion Ankle and Foot Left Dorsiflexion with Knee Flexed 10 Dorsiflexion with Knee Extended 8 Plantarflexion 40 Comments demos tendency for inversion PT-OP-M Strength Start: 08/08/24 15:49 Freq: Status: Active Protocol: Document 08/09/24 10:44 NM (Rec: 08/09/24 12:18 NM [id number]) Hip Strength Hip Manual Muscle Testing Right Flexion (L2) 4+ Good+ Extension (S1) 4 Good Abduction 4 Good Adduction 4+ Good+ External Rotation 4+ Good+ Internal Rotation 4+ Good+ Left Flexion (L2) 4- Good- Extension (S1) 3+ Fair+ Abduction 4- Good- Adduction 4 Good External Rotation 4- Good- Internal Rotation 4 Good Knee Strength Knee Manual Muscle Testing Right Flexion (S2) 4+ Good+ Extension (L3) 4+ Good+ Left Flexion (S2) 4- Good- Extension (L3) 4- Good- Comments audible crepitus Ankle/Foot Strength Ankle and Foot Manual Muscle Testing Right Dorsiflexion (L4) 4+ Good+ Plantarflexion (S1) 4+ Good+ Inversion 4+ Good+ Eversion (S1) 4+ Good+ Comments tested in sitting Left Dorsiflexion (L4) 3+ Fair+ Plantarflexion (S1) 4 Good Inversion 4 Good Eversion (S1) 3 Fair Comments tested in sitting PT-OP-Q Treatments Start: 08/08/24 15:49 Freq: Status: Active Protocol: Document 08/18/24 09:49 NM (Rec: 08/18/24 10:50 NM [id number]) Gym Equipment Shuttle Recovery B squat Details B squat w/ proprio to focus on not locking during TKE for gait Resistance 62# > 75# (1 navy) Reps/Time 20 ea; progress resistance next tx as needed L squat Details TKE, proprio w/o lock knee; PT prn verbal/tactile cues at knee Resistance 25# (teal) > 37# (teal) Reps/Time 10 at 25#, 2x10 at 37# (Teal) Therapeutic Exercises Sitting Exercises ankle dorsiflexion Sitting Exercise Name eccentric control Side left Resistance level 2 band Equipment Used band under foot Reps/Minutes 15 with 3 concentric, 3 bruno hold, 3 eccentric lowering Comments for ecc control during gait Standing Exercises hamstring curl Standing Exercise Name HEP Side bilateral Resistance 2# ankle wt Equipment Used hand support on bar for balance; PT tactile cue prevent knee hyperext Reps/Minutes 2x8 Comments cued more hip ext than hip flex Gait Training Gait Activity Hallway Description various distances in clinic for carryover Device Used none Level of Assistance close SBA Distance/Duration 8 min Treatment Focus mechanics Comments Focus on LLE hip and knee flexion, ankle dorsiflexion especially as advancing, relaxation of L elbow and hand . Demos less trunk hyperext with stance Neuro Re-Education Treatment Balance Activities stairs Reps/Duration 10 ea Comments 1. step tap 6 for ankle DF, foot clearance 1 hand support on rail; prn catching foot 2. step up 6 with emphasis on ankle DF, foot clearance PT provide verbal and tactile cues for TKE without hyperext, trunk postural support hurdles Details reciprocal stepping Equipment 6 hurdles Reps/Duration 4 sets Comments no UE support CGA/close SBA; cued for tall posture, heel > toe, foot clearance, decreased trunk hyperext w/ swing 1 instance catching jennifer PT-OP-R Modalities Start: 08/11/24 09:03 Freq: Status: Active Protocol: Document 08/15/24 11:35 SP (Rec: 08/15/24 12:33 SP [id number]) Electric Stimulation Electric Stimulation Biphasic Body Location L anterior tibialis Intensity 25 Frequency 35 Pulse Rate 300 Cycle 10/10 Ramp 2.0 Comments Performed in sitting and standing with NMES. 15 minutes total time, Performed in conjuction with exercises to decrease foot drop: (1) L Ankle Dorsiflexion AROM c/o band, (2) c/ level 1 band against resistance, (3) step taps to 2-4 step (progressing to double taps while maintaining ankle DF), (4) stepping over 2 step with 1 hand support for balance with controlled eccentric lowering. Skin assessed during and afterward. No redness, burning , or other skin changes; monitored closely throughout session. PT-OP-T Assessment and Plan Start: 08/08/24 15:49 Freq: Status: Active Protocol: Document 08/18/24 09:49 NM (Rec: 08/18/24 10:50 NM [id number]) Physical Therapy Assessment Goals Four Impairment difficulty with kicking LLE for swimming, 3+/5 MMT Short Term Goal (STG) Pt will increase L hip ext strength to at least 4/5 MMT in order to improve ability to kick at edge of pool STG Duration 8 weeks Three Impairment 30 sec STS score 8 from standard chair Short Term Goal (STG) Pt will demo L knee hyperextension with ascent during STS transfers <50% of the time without cueing in order to demonstrate increased quad strength STG Duration 6 weeks Home Hospice Rn Goal (LTG) Pt will increase 30 sec STS score >10 from standard chair to demonstrate improved body mechanics during transfers and increased BLE strength LTG Duration 12 weeks Two Impairment activity tolerance, balance Home Hospice Rn Goal (LTG) If appropriate, pt will be educated on use of trek poles vs spc for stability during hiking LTG Duration 12 weeks One Impairment 6 MWT distance 1009 ft, no AD, no AFO Short Term Goal (STG) Pt will demonstrate more equal step length and less foot slap >50% of the time in order to demonstrate improved LLE strength STG Duration 6 weeks Home Hospice Rn Goal (LTG) Pt will increase 6 MWT distance >1000 ft with more equal step length and without dragging L foot LTG Duration 12 weeks Assessment Summary Assessment Pt demos improved carryover at end of session with maintaining L ankle dorsiflexion, tall posture, and less knee hyperextension as leaving session. Increased time spent on functional foot clearance and hip/knee flexion for swing phase. Has several instances of catching jennifer or stairs with foot, worse with fatigue. Demos great effort. Needs more cueing for posture and core bracing to assist with trunk compensations. Emphasis on quad strengthening to reduce tendency for knee hyperextension during stance. Improved eccentric control of ankle dorsiflexors. Pt would continue to benefit from skilled PT for progressive gait training and strengthening in order to improve balance and mobility. Physical Therapy Plan Frequency and Duration Frequency of Treatment 2x/Week Duration of treatment (weeks) 12 Plan of Care Start Date 08/09/24 Plan of Care End Date 11/03/24 Therapeutic Interventions Therapeutic Interventions Aquatic Therapy,Balance Training,Coordination Training ,Gait Training,Home Exercise Program,Joint Mobilizations, Manual Therapy,Neuromuscular Re-education,Orthotic/ Prosthetic Management,Patient/ Caregiver Education,Self-Care/ Home Management,Sensory Integration,Soft Tissue Mobilization,Taping, Therapeutic Activities, Therapeutic Exercises Modalities Cold Pack/Ice Massage,Electric Stimulation,Hot Packs, Ultrasound Next Visit Focus/Plan Next Note Type Treatment Note Next Visit Plan Cont with HS strength, hip flexor strength c/ band if approp, cont with ankle DF and quad strength/glute Plan of care: gait training, ankle DF and quad strengthening. Assess need for AFO vs shoe assist to prevent foot drop. Unstable surface training outdoors w/ 1 trek pole for hiking. Assess shoe wear for support Continue ankle DF training: cont DF w/ e-stim; progress banded DF, banded eccentric DF , rocking on towel, rockerboard, banded march, heel walk, DF c/ beanbags Stretch hip ER/IR, ankle inv/ ev strength Continue with quad strengthening to prevent hyperext: retrain proprio to limit hyperext; TKE c/ ball and band, crouched ambulation, STS, quad strength, uni leg press; progress to squat hold w/ star/clock
--- NOTE | 2024-08-21 10:32 | PT.OTN ---
Current Diagnoses Hemiplegia and hemiparesis following cerebral infarction affecting left non-dominant side (08/21/24) Other abnormalities of gait and mobility (08/21/24) Unspecified abnormalities of gait and mobility (08/21/24) Other lack of coordination (08/21/24) Weakness (08/21/24) Physical Therapy Treatment Note PT-OP-A Visit Information Start: 08/08/24 15:49 Freq: Status: Active Protocol: Document 08/21/24 13:50 SP (Rec: 08/21/24 14:39 SP [id number]) Out-Patient Physical Therapy Visit Information Visit Information Visit Type Treatment Note Visit Note KX after 19 visits Visit Start Time 13:50 Visit Stop Time 10:32 Visit Number 5 Number of [employer] Visits 1 Precautions Precautions Hx CVA, falls PT-OP-B Current Condition Start: 08/08/24 15:49 Freq: Status: Active Protocol: Document 08/09/24 10:44 NM (Rec: 08/09/24 12:18 NM [id number]) Current Condition History of Current Condition Current Complaints gait, unstable surfaces, R knee pain w/ length gait History of Current Condition Pt had a stroke in March 01, 2021. Has L hemiplegia; R dominant. Pt has had extensive PT since her stroke in 2020. Pt was in w/c for 4 months following her stroke, then progressed to cane with 3 legs . Previously using an spc for mobility, now only uses for hiking or unstable surfaces. Pt has been ambulated without the cane for 4-5 months now. Pt likes to hike, takes the cane when hiking but able to ambulate without cane for household and most community mobility. Pt did have an AFO for her L ankle to correct her gait but has not used it for 2 years. When ambulating for long times, has foot slap. She stopped going to IR for PT 2 weeks ago. She has been doing a lot of muscle strengthening in PT. She recently saw her neurologist, had botox (last dose in June). Next expected dose end of September. Pt has been doing a youtube Dr. June Jansen and [employer] for 2 hours ea day for exercises. Pt reports pretty cj with balance, she has had 2 falls 1 year ago. Currently seeing OT for her hand; hx of speech therapy. Pt reports able to do all ADLs/ IADLs including cooking, cleaning, dressing, independently but slower than normal. Treatment Goals Patient/Caregiver Goals walk better (lift foot better, less to side, L elbow curling ), kicking for swimming PT-OP-C Subjective Start: 08/08/24 15:49 Freq: Status: Active Protocol: Document 08/21/24 13:50 SP (Rec: 08/21/24 14:39 SP [id number]) OP-PT Subjective Patient Comments Patient Comments Pt reports thinks R low back and hip sore from the weighted HS curls last tx. Going OOT Aug 31- beginning of Sep. WIll check last few appts if can schedule appt for when returns . PT-OP-D Balance Start: 08/08/24 15:49 Freq: Status: Active Protocol: Document 08/09/24 10:44 NM (Rec: 08/09/24 12:18 NM [id number]) Balance Tests Single Limb Standing Single Limb- Right 30 sec w/ increased sway, med/ lat instability at ankle Single Limb- Left 8 sec w/ increased med/lat instability at ankle Tandem Tandem Standing 30 sec w/ LLE leading PT-OP-G Mobility & Gait Start: 08/08/24 15:49 Freq: Status: Active Protocol: Document 08/09/24 10:44 NM (Rec: 08/09/24 12:18 NM [id number]) OP Mobility Evaluation Bed Mobility Rolling IND Supine to and from Sit IND Transfers Sit to Stand IND from standard chair. Demos tendency for L knee extension more quickly than R knee as transitioning to stance, slight weight shift toward RLE OP Gait Assessment Gait Gait Assistance Required: Standby Assistance Distance (Feet) 150 Assistive Devices Assistive Device None Gait Deviations General Gait Pattern Antalgic,Decreased Feet Clearance Factors Limiting Gait Function Factors Limiting Gait Function Abnormal Tonal Influences, Decreased Activity Tolerance, Decreased Strength,Poor Balance Comments Gait Comments Demos mild L hip circumduction , L plantarflexion and drags toes during swing; as fatigues , demos L foot slap. Slight hip hike on L to complete swing following circumduction. Demos tendency for quick L knee extension during stance with transition into mild hyperextension as fatigues. LUE begins to flex at elbow and wrist and supinate with both effort and fatigue. Limited trunk rotation, slight R lateral lean PT-OP-H Neuro Start: 08/08/24 15:49 Freq: Status: Active Protocol: Document 08/09/24 10:44 NM (Rec: 08/09/24 12:18 NM [id number]) Sensation Evaluation Comments Summary Comments BLE equally intact to light touch sensation Coordination Evaluation Upper Extremity Tests Right Finger to Nose Test Normal Performance Finger to Finger Test Normal Performance Alternate Nose to Finger Test Normal Performance Pronation/Supination Test Normal Performance Left Finger to Nose Test Moderate Impairment Finger to Finger Test Minimal Impairment Alternate Nose to Finger Test Moderate Impairment Pronation/Supination Test Moderate Impairment Lower Extremity Tests Right Alternate Heel to Knee; Heel to Toe Test Normal Performance Heel on Perez Test Normal Performance Foot Tapping Test Normal Performance Drawing a Nome w/Foot Test Normal Performance Left Alternate Heel to Knee; Heel to Toe Test Moderate Impairment Heel on Perez Test Moderate Impairment Foot Tapping Test Minimal Impairment Drawing a Nome w/Foot Test Minimal Impairment Muscle Tone Tone Assessment Left Upper Extremity Muscle Tone Comments Tendency for L elbow flex, wrist flex, and finger flex, supination with exertion Posturally thumb and MPJ hyperextension Left Lower Extremity Flexor Tone Description Normal Extensor Tone Description Mild Hypertonicity Muscle Tone Comments tendency for knee ext, plantarflexion and ankle inversion PT-OP-K Range of Motion Start: 08/08/24 15:49 Freq: Status: Active Protocol: Document 08/09/24 10:44 NM (Rec: 08/09/24 12:18 NM [id number]) Ankle and Foot Goniometric Range of Motion Ankle and Foot Left Dorsiflexion with Knee Flexed 10 Dorsiflexion with Knee Extended 8 Plantarflexion 40 Comments demos tendency for inversion PT-OP-M Strength Start: 08/08/24 15:49 Freq: Status: Active Protocol: Document 08/09/24 10:44 NM (Rec: 08/09/24 12:18 NM [id number]) Hip Strength Hip Manual Muscle Testing Right Flexion (L2) 4+ Good+ Extension (S1) 4 Good Abduction 4 Good Adduction 4+ Good+ External Rotation 4+ Good+ Internal Rotation 4+ Good+ Left Flexion (L2) 4- Good- Extension (S1) 3+ Fair+ Abduction 4- Good- Adduction 4 Good External Rotation 4- Good- Internal Rotation 4 Good Knee Strength Knee Manual Muscle Testing Right Flexion (S2) 4+ Good+ Extension (L3) 4+ Good+ Left Flexion (S2) 4- Good- Extension (L3) 4- Good- Comments audible crepitus Ankle/Foot Strength Ankle and Foot Manual Muscle Testing Right Dorsiflexion (L4) 4+ Good+ Plantarflexion (S1) 4+ Good+ Inversion 4+ Good+ Eversion (S1) 4+ Good+ Comments tested in sitting Left Dorsiflexion (L4) 3+ Fair+ Plantarflexion (S1) 4 Good Inversion 4 Good Eversion (S1) 3 Fair Comments tested in sitting PT-OP-Q Treatments Start: 08/08/24 15:49 Freq: Status: Active Protocol: Document 08/21/24 13:50 SP (Rec: 08/21/24 14:39 SP [id number]) Therapeutic Exercises Supine Exercises SKTC Supine Exercise Name added to HEP Side bilateral Reps/Minutes 30 SH x2 each LE Comments good feedback stretch Stretching Supine Exercise Name added to HEP: piriformis, FIg 4, HS Side bilateral Equipment Used ankle over L knee Reps/Minutes 30 SH x2 each side & LE, HS hold and AP Comments good feedback stretch, cued breath ribcage mob and Sitting Exercises ankle dorsiflexion Sitting Exercise Name eccentric control Side left Resistance level 2 band Equipment Used band under foot (ankle over opp knee) anchored toward Reps/Minutes 15 with 3 concentric, 3 bruno hold, 3 eccentric lowering Comments for ecc control during gait Manual Therapy Treatment Other Other Manual Treatments STMs SL R>L : QL, LS ES , Glut med, piriformis PT-OP-R Modalities Start: 08/11/24 09:03 Freq: Status: Active Protocol: Document 08/15/24 11:35 SP (Rec: 08/15/24 12:33 SP [id number]) Electric Stimulation Electric Stimulation Biphasic Body Location L anterior tibialis Intensity 25 Frequency 35 Pulse Rate 300 Cycle 10/10 Ramp 2.0 Comments Performed in sitting and standing with NMES. 15 minutes total time, Performed in conjuction with exercises to decrease foot drop: (1) L Ankle Dorsiflexion AROM c/o band, (2) c/ level 1 band against resistance, (3) step taps to 2-4 step (progressing to double taps while maintaining ankle DF), (4) stepping over 2 step with 1 hand support for balance with controlled eccentric lowering. Skin assessed during and afterward. No redness, burning , or other skin changes; monitored closely throughout session. PT-OP-T Assessment and Plan Start: 08/08/24 15:49 Freq: Status: Active Protocol: Document 08/21/24 13:50 SP (Rec: 08/21/24 14:39 SP [id number]) Physical Therapy Assessment Goals Four Impairment difficulty with kicking LLE for swimming, 3+/5 MMT Short Term Goal (STG) Pt will increase L hip ext strength to at least 4/5 MMT in order to improve ability to kick at edge of pool STG Duration 8 weeks Three Impairment 30 sec STS score 8 from standard chair Short Term Goal (STG) Pt will demo L knee hyperextension with ascent during STS transfers <50% of the time without cueing in order to demonstrate increased quad strength STG Duration 6 weeks Auto Refinisher Goal (LTG) Pt will increase 30 sec STS score >10 from standard chair to demonstrate improved body mechanics during transfers and increased BLE strength LTG Duration 12 weeks Two Impairment activity tolerance, balance Auto Refinisher Goal (LTG) If appropriate, pt will be educated on use of trek poles vs spc for stability during hiking LTG Duration 12 weeks One Impairment 6 MWT distance 1009 ft, no AD, no AFO Short Term Goal (STG) Pt will demonstrate more equal step length and less foot slap >50% of the time in order to demonstrate improved LLE strength STG Duration 6 weeks Auto Refinisher Goal (LTG) Pt will increase 6 MWT distance >1000 ft with more equal step length and without dragging L foot LTG Duration 12 weeks Assessment Summary Assessment Pt responded well to manual and stretching today, provided HOs. Forgot to show self manual ball on wall, will do next tx. She felt more confident with resisted ankle HEP post review for set up. [employer] reviewed ankle eversion and DF multiple positions and found image of HEP is the most good effort and set up for her to perform on her own. Physical Therapy Plan Frequency and Duration Frequency of Treatment 2x/Week Duration of treatment (weeks) 12 Plan of Care Start Date 08/09/24 Plan of Care End Date 11/03/24 Therapeutic Interventions Therapeutic Interventions Aquatic Therapy,Balance Training,Coordination Training ,Gait Training,Home Exercise Program,Joint Mobilizations, Manual Therapy,Neuromuscular Re-education,Orthotic/ Prosthetic Management,Patient/ Caregiver Education,Self-Care/ Home Management,Sensory Integration,Soft Tissue Mobilization,Taping, Therapeutic Activities, Therapeutic Exercises Modalities Cold Pack/Ice Massage,Electric Stimulation,Hot Packs, Ultrasound Next Visit Focus/Plan Next Note Type Treatment Note Next Visit Plan Cont with HS strength, hip flexor strength c/ band if approp, cont with ankle DF and quad strength/glute Plan of care: gait training, ankle DF and quad strengthening. Assess need for AFO vs shoe assist to prevent foot drop. Unstable surface training outdoors w/ 1 trek pole for hiking. Assess shoe wear for support Continue ankle DF training: cont DF w/ e-stim; progress banded DF, banded eccentric DF , rocking on towel, rockerboard, banded march, heel walk, DF c/ beanbags Stretch hip ER/IR, ankle inv/ ev strength REcheck response to stretching added last tx. Continue with HS strengthening to prevent hyperext: retrain proprio to limit hyperext; Next: TKE c/ ball and band, crouched ambulation, STS, quad strength , uni leg press; progress to squat hold w/ star/clock
--- NOTE | 2024-08-25 11:50 | PT.OTN ---
Current Diagnoses Hemiplegia and hemiparesis following cerebral infarction affecting left non-dominant side (08/25/24) Other abnormalities of gait and mobility (08/25/24) Unspecified abnormalities of gait and mobility (08/25/24) Other lack of coordination (08/25/24) Weakness (08/25/24) Physical Therapy Treatment Note PT-OP-A Visit Information Start: 08/08/24 15:49 Freq: Status: Active Protocol: Document 08/25/24 10:42 NM (Rec: 08/25/24 11:31 NM [id number]) Out-Patient Physical Therapy Visit Information Visit Information Visit Type Treatment Note Visit Note KX after 19 visits Visit Start Time 10:46 Visit Stop Time 11:26 Visit Number 6 Evaluation Information Evaluation Date 08/09/24 Precautions Precautions Hx CVA, falls PT-OP-B Current Condition Start: 08/08/24 15:49 Freq: Status: Active Protocol: Document 08/09/24 10:44 NM (Rec: 08/09/24 12:18 NM [id number]) Current Condition History of Current Condition Current Complaints gait, unstable surfaces, R knee pain w/ length gait History of Current Condition Pt had a stroke in March 01, 2021. Has L hemiplegia; R dominant. Pt has had extensive PT since her stroke in 2020. Pt was in w/c for 4 months following her stroke, then progressed to cane with 3 legs . Previously using an spc for mobility, now only uses for hiking or unstable surfaces. Pt has been ambulated without the cane for 4-5 months now. Pt likes to hike, takes the cane when hiking but able to ambulate without cane for household and most community mobility. Pt did have an AFO for her L ankle to correct her gait but has not used it for 2 years. When ambulating for long times, has foot slap. She stopped going to IR for PT 2 weeks ago. She has been doing a lot of muscle strengthening in PT. She recently saw her neurologist, had botox (last dose in June). Next expected dose end of September. Pt has been doing a youtube Dr. June Jansen and [employer] for 2 hours ea day for exercises. Pt reports pretty cj with balance, she has had 2 falls 1 year ago. Currently seeing OT for her hand; hx of speech therapy. Pt reports able to do all ADLs/ IADLs including cooking, cleaning, dressing, independently but slower than normal. Treatment Goals Patient/Caregiver Goals walk better (lift foot better, less to side, L elbow curling ), kicking for swimming PT-OP-C Subjective Start: 08/08/24 15:49 Freq: Status: Active Protocol: Document 08/25/24 10:42 NM (Rec: 08/25/24 11:31 NM [id number]) OP-PT Subjective Patient Comments Patient Comments Stopped doing HSC due to pain, but took about a week. [place] when walked. States doing a better job of lifting her foot when walking until she gets tired. PT-OP-D Balance Start: 08/08/24 15:49 Freq: Status: Active Protocol: Document 08/09/24 10:44 NM (Rec: 08/09/24 12:18 NM [id number]) Balance Tests Single Limb Standing Single Limb- Right 30 sec w/ increased sway, med/ lat instability at ankle Single Limb- Left 8 sec w/ increased med/lat instability at ankle Tandem Tandem Standing 30 sec w/ LLE leading PT-OP-G Mobility & Gait Start: 08/08/24 15:49 Freq: Status: Active Protocol: Document 08/09/24 10:44 NM (Rec: 08/09/24 12:18 NM [id number]) OP Mobility Evaluation Bed Mobility Rolling IND Supine to and from Sit IND Transfers Sit to Stand IND from standard chair. Demos tendency for L knee extension more quickly than R knee as transitioning to stance, slight weight shift toward RLE OP Gait Assessment Gait Gait Assistance Required: Standby Assistance Distance (Feet) 150 Assistive Devices Assistive Device None Gait Deviations General Gait Pattern Antalgic,Decreased Feet Clearance Factors Limiting Gait Function Factors Limiting Gait Function Abnormal Tonal Influences, Decreased Activity Tolerance, Decreased Strength,Poor Balance Comments Gait Comments Demos mild L hip circumduction , L plantarflexion and drags toes during swing; as fatigues , demos L foot slap. Slight hip hike on L to complete swing following circumduction. Demos tendency for quick L knee extension during stance with transition into mild hyperextension as fatigues. LUE begins to flex at elbow and wrist and supinate with both effort and fatigue. Limited trunk rotation, slight R lateral lean PT-OP-H Neuro Start: 08/08/24 15:49 Freq: Status: Active Protocol: Document 08/09/24 10:44 NM (Rec: 08/09/24 12:18 NM [id number]) Sensation Evaluation Comments Summary Comments BLE equally intact to light touch sensation Coordination Evaluation Upper Extremity Tests Right Finger to Nose Test Normal Performance Finger to Finger Test Normal Performance Alternate Nose to Finger Test Normal Performance Pronation/Supination Test Normal Performance Left Finger to Nose Test Moderate Impairment Finger to Finger Test Minimal Impairment Alternate Nose to Finger Test Moderate Impairment Pronation/Supination Test Moderate Impairment Lower Extremity Tests Right Alternate Heel to Knee; Heel to Toe Test Normal Performance Heel on Perez Test Normal Performance Foot Tapping Test Normal Performance Drawing a [place] w/Foot Test Normal Performance Left Alternate Heel to Knee; Heel to Toe Test Moderate Impairment Heel on [place] Test Moderate Impairment Foot Tapping Test Minimal Impairment Drawing a [place] w/Foot Test Minimal Impairment Muscle Tone Tone Assessment Left Upper Extremity Muscle Tone Comments Tendency for L elbow flex, wrist flex, and finger flex, supination with exertion Posturally thumb and MPJ hyperextension Left Lower Extremity Flexor Tone Description Normal Extensor Tone Description Mild Hypertonicity Muscle Tone Comments tendency for knee ext, plantarflexion and ankle inversion PT-OP-K Range of Motion Start: 08/08/24 15:49 Freq: Status: Active Protocol: Document 08/09/24 10:44 NM (Rec: 08/09/24 12:18 NM [id number]) Ankle and Foot Goniometric Range of Motion Ankle and Foot Left Dorsiflexion with Knee Flexed 10 Dorsiflexion with Knee Extended 8 Plantarflexion 40 Comments demos tendency for inversion PT-OP-M Strength Start: 08/08/24 15:49 Freq: Status: Active Protocol: Document 08/09/24 10:44 NM (Rec: 08/09/24 12:18 NM [id number]) Hip Strength Hip Manual Muscle Testing Right Flexion (L2) 4+ Good+ Extension (S1) 4 Good Abduction 4 Good Adduction 4+ Good+ External Rotation 4+ Good+ Internal Rotation 4+ Good+ Left Flexion (L2) 4- Good- Extension (S1) 3+ Fair+ Abduction 4- Good- Adduction 4 Good External Rotation 4- Good- Internal Rotation 4 Good Knee Strength Knee Manual Muscle Testing Right Flexion (S2) 4+ Good+ Extension (L3) 4+ Good+ Left Flexion (S2) 4- Good- Extension (L3) 4- Good- Comments audible crepitus Ankle/Foot Strength Ankle and Foot Manual Muscle Testing Right Dorsiflexion (L4) 4+ Good+ Plantarflexion (S1) 4+ Good+ Inversion 4+ Good+ Eversion (S1) 4+ Good+ Comments tested in sitting Left Dorsiflexion (L4) 3+ Fair+ Plantarflexion (S1) 4 Good Inversion 4 Good Eversion (S1) 3 Fair Comments tested in sitting PT-OP-Q Treatments Start: 08/08/24 15:49 Freq: Status: Active Protocol: Document 08/25/24 10:42 NM (Rec: 08/25/24 11:31 NM [id number]) Therapeutic Exercises Standing Exercises squat Standing Exercise Name wall squat- HEP Side bilateral Resistance level 2 band at thighs Equipment Used back at wall Reps/Minutes 2x10 Comments cued form TKE Standing Exercise Name HEP Side bilateral Resistance level 3 band; level 2 band HEP for set up c/ bike from chair Reps/Minutes 15 ea band level Comments cued quad set vs hip ext comp Gait Training Gait Activity hurdles Device Used none Level of Assistance CGA Surface stable Distance/Duration 2 sets x 6 hurdles Comments 1. non-reciprocal stepping 2. reciprocal stepping Emphasis on ankle DF, foot clearance, TKE w/o hyperext, swing, trunk rot, L elbow/hand relaxation Hallway Device Used none Level of Assistance close SBA Distance/Duration 10 min Treatment Focus gait mechanics, foot clearance Comments 1. hallway for carryover: trunk rot, stepping, foot clearance, DF, stance 2. c/ trek poles for trunk rot focus on LLE hip and knee flex carryover, relaxation of L elbow and hand Neuro Re-Education Treatment Balance Activities stairs Details 4 Reps/Duration 2 sets x 6 stepr Comments c/ arm swing, reciprocal patterning close SBA Movement Re-Education Movement Re-education Activities 1. hip flexion for limb advancement with L elbow ext and flat hand on plinth For retraining elbow ext during swing phase 2. hip flexion for limb advancement with L elbow ext without hand on plinth For retraining elbow ext during swing phase PT-OP-R Modalities Start: 08/11/24 09:03 Freq: Status: Active Protocol: Document 08/15/24 11:35 SP (Rec: 08/15/24 12:33 SP [id number]) Electric Stimulation Electric Stimulation Biphasic Body Location L anterior tibialis Intensity 25 Frequency 35 Pulse Rate 300 Cycle 10/10 Ramp 2.0 Comments Performed in sitting and standing with NMES. 15 minutes total time, Performed in conjuction with exercises to decrease foot drop: (1) L Ankle Dorsiflexion AROM c/o band, (2) c/ level 1 band against resistance, (3) step taps to 2-4 step (progressing to double taps while maintaining ankle DF), (4) stepping over 2 step with 1 hand support for balance with controlled eccentric lowering. Skin assessed during and afterward. No redness, burning , or other skin changes; monitored closely throughout session. PT-OP-T Assessment and Plan Start: 08/08/24 15:49 Freq: Status: Active Protocol: Document 08/25/24 10:42 NM (Rec: 08/25/24 11:31 NM [id number]) Physical Therapy Assessment Goals Four Impairment difficulty with kicking LLE for swimming, 3+/5 MMT Short Term Goal (STG) Pt will increase L hip ext strength to at least 4/5 MMT in order to improve ability to kick at edge of pool STG Duration 8 weeks Three Impairment 30 sec STS score 8 from standard chair Short Term Goal (STG) Pt will demo L knee hyperextension with ascent during STS transfers <50% of the time without cueing in order to demonstrate increased quad strength STG Duration 6 weeks Cooker Meal Goal (LTG) Pt will increase 30 sec STS score >10 from standard chair to demonstrate improved body mechanics during transfers and increased BLE strength LTG Duration 12 weeks Two Impairment activity tolerance, balance Cook[employer] Meal Goal (LTG) If appropriate, pt will be educated on use of trek poles vs spc for stability during hiking LTG Duration 12 weeks One Impairment 6 MWT distance 1009 ft, no AD, no AFO Short Term Goal (STG) Pt will demonstrate more equal step length and less foot slap >50% of the time in order to demonstrate improved LLE strength STG Duration 6 weeks Residential Goal (LTG) Pt will increase 6 MWT distance >1000 ft with more equal step length and without dragging L foot LTG Duration 12 weeks Assessment Summary Assessment Pt demos good carryover with trunk rotation and L foot clearance during gait. As fatigues, pt more challenged to maintain L elbow extension along with L swing phase. Trialed hip flexion to promote L swing with L elbow extension in combination with arm swing and trunk rotation. Very challenging for pt to coordinate all movement patterns due to synergy. Progressed TKE and added wall squat for glute/quad strength carryover at home. Pt requires cueing for set up but does not need as many verbal or tactile cues from PT to limit L knee hyperextension although still present. Demos L trunk lean and trunk rotation as fatigues during squats. Physical Therapy Plan Frequency and Duration Frequency of Treatment 2x/Week Duration of treatment (weeks) 12 Plan of Care Start Date 08/09/24 Plan of Care End Date 11/03/24 Therapeutic Interventions Therapeutic Interventions Aquatic Therapy,Balance Training,Coordination Training ,Gait Training,Home Exercise Program,Joint Mobilizations, Manual Therapy,Neuromuscular Re-education,Orthotic/ Prosthetic Management,Patient/ Caregiver Education,Self-Care/ Home Management,Sensory Integration,Soft Tissue Mobilization,Taping, Therapeutic Activities, Therapeutic Exercises Modalities Cold Pack/Ice Massage,Electric Stimulation,Hot Packs, Ultrasound Next Visit Focus/Plan Next Note Type Progress Note Next Visit Plan banded hip flexion with trunk rotation and elbow ext (trial wt). HEP for carryover d/t possible d/c Plan of care: gait training, ankle DF and quad strengthening. Assess need for AFO vs shoe assist to prevent foot drop. Unstable surface training outdoors w/ 1 trek pole for hiking. Assess shoe wear for support Continue ankle DF training: cont DF w/ e-stim; progress banded DF, banded eccentric DF , rocking on towel, rockerboard, banded march, heel walk, DF c/ beanbags Stretch hip ER/IR, ankle inv/ ev strength REcheck response to stretching added last tx. Continue with HS strengthening to prevent hyperext: retrain proprio to limit hyperext; Next: TKE c/ ball and band, crouched ambulation, STS, quad strength , uni leg press; progress to squat hold w/ star/clock
--- NOTE | 2024-08-29 10:44 | PT.OTN ---
Current Diagnoses Hemiplegia and hemiparesis following cerebral infarction affecting left non-dominant side (08/29/24) Other abnormalities of gait and mobility (08/29/24) Unspecified abnormalities of gait and mobility (08/29/24) Other lack of coordination (08/29/24) Weakness (08/29/24) Physical Therapy Treatment Note PT-OP-A Visit Information Start: 08/08/24 15:49 Freq: Status: Active Protocol: Document 08/29/24 09:48 NM (Rec: 08/29/24 10:43 NM [id number]) Out-Patient Physical Therapy Visit Information Visit Information Visit Type Progress Note Visit Note KX after 19 visits Visit Start Time 09:49 Visit Stop Time 10:30 Visit Number 7 Evaluation Information Evaluation Date 08/09/24 Precautions Precautions Hx CVA, falls PT-OP-B Current Condition Start: 08/08/24 15:49 Freq: Status: Active Protocol: Document 08/09/24 10:44 NM (Rec: 08/09/24 12:18 NM [id number]) Current Condition History of Current Condition Current Complaints gait, unstable surfaces, R knee pain w/ length gait History of Current Condition Pt had a stroke in March 01, 2021. Has L hemiplegia; R dominant. Pt has had extensive PT since her stroke in 2020. Pt was in w/c for 4 months following her stroke, then progressed to cane with 3 legs . Previously using an spc for mobility, now only uses for hiking or unstable surfaces. Pt has been ambulated without the cane for 4-5 months now. Pt likes to hike, takes the cane when hiking but able to ambulate without cane for household and most community mobility. Pt did have an AFO for her L ankle to correct her gait but has not used it for 2 years. When ambulating for long times, has foot slap. She stopped going to IR for PT 2 weeks ago. She has been doing a lot of muscle strengthening in PT. She recently saw her neurologist, had botox (last dose in June). Next expected dose end of September. Pt has been doing a youtube Dr. June Jansen and [employer] for 2 hours ea day for exercises. Pt reports pretty cj with balance, she has had 2 falls 1 year ago. Currently seeing OT for her hand; hx of speech therapy. Pt reports able to do all ADLs/ IADLs including cooking, cleaning, dressing, independently but slower than normal. Treatment Goals Patient/Caregiver Goals walk better (lift foot better, less to side, L elbow curling ), kicking for swimming PT-OP-C Subjective Start: 08/08/24 15:49 Freq: Status: Active Protocol: Document 08/29/24 09:48 NM (Rec: 08/29/24 10:43 NM [id number]) OP-PT Subjective Patient Comments Patient Comments Pt will see Dr. Goncalves on 10/09 , will be getting botox. Pt reports a little soreness in low back today, states that she tried unweighted HSC while cooking. She tried TKE and other exercises, reports going well. Pt continues to report that she is paying more attention to her foot when walking, lifting it; she reports that she does a better job of lifting her foot until shes tired. LUE still unruly and likes to bend. Reports that she does not feel like her exercise PT-OP-D Balance Start: 08/08/24 15:49 Freq: Status: Active Protocol: Document 08/09/24 10:44 NM (Rec: 08/09/24 12:18 NM [id number]) Balance Tests Single Limb Standing Single Limb- Right 30 sec w/ increased sway, med/ lat instability at ankle Single Limb- Left 8 sec w/ increased med/lat instability at ankle Tandem Tandem Standing 30 sec w/ LLE leading PT-OP-G Mobility & Gait Start: 08/08/24 15:49 Freq: Status: Active Protocol: Document 08/09/24 10:44 NM (Rec: 08/09/24 12:18 NM [id number]) OP Mobility Evaluation Bed Mobility Rolling IND Supine to and from Sit IND Transfers Sit to Stand IND from standard chair. Demos tendency for L knee extension more quickly than R knee as transitioning to stance, slight weight shift toward RLE OP Gait Assessment Gait Gait Assistance Required: Standby Assistance Distance (Feet) 150 Assistive Devices Assistive Device None Gait Deviations General Gait Pattern Antalgic,Decreased Feet Clearance Factors Limiting Gait Function Factors Limiting Gait Function Abnormal Tonal Influences, Decreased Activity Tolerance, Decreased Strength,Poor Balance Comments Gait Comments Demos mild L hip circumduction , L plantarflexion and drags toes during swing; as fatigues , demos L foot slap. Slight hip hike on L to complete swing following circumduction. Demos tendency for quick L knee extension during stance with transition into mild hyperextension as fatigues. LUE begins to flex at elbow and wrist and supinate with both effort and fatigue. Limited trunk rotation, slight R lateral lean PT-OP-H Neuro Start: 08/08/24 15:49 Freq: Status: Active Protocol: Document 08/09/24 10:44 NM (Rec: 08/09/24 12:18 NM [id number]) Sensation Evaluation Comments Summary Comments BLE equally intact to light touch sensation Coordination Evaluation Upper Extremity Tests Right Finger to Nose Test Normal Performance Finger to Finger Test Normal Performance Alternate Nose to Finger Test Normal Performance Pronation/Supination Test Normal Performance Left Finger to Nose Test Moderate Impairment Finger to Finger Test Minimal Impairment Alternate Nose to Finger Test Moderate Impairment Pronation/Supination Test Moderate Impairment Lower Extremity Tests Right Alternate Heel to Knee; Heel to Toe Test Normal Performance Heel on Perez Test Normal Performance Foot Tapping Test Normal Performance Drawing a [place] w/Foot Test Normal Performance Left Alternate Heel to Knee; Heel to Toe Test Moderate Impairment Heel on Perez Test Moderate Impairment Foot Tapping Test Minimal Impairment Drawing a [place] w/Foot Test Minimal Impairment Muscle Tone Tone Assessment Left Upper Extremity Muscle Tone Comments Tendency for L elbow flex, wrist flex, and finger flex, supination with exertion Posturally thumb and MPJ hyperextension Left Lower Extremity Flexor Tone Description Normal Extensor Tone Description Mild Hypertonicity Muscle Tone Comments tendency for knee ext, plantarflexion and ankle inversion PT-OP-K Range of Motion Start: 08/08/24 15:49 Freq: Status: Active Protocol: Document 08/09/24 10:44 NM (Rec: 08/09/24 12:18 NM [id number]) Ankle and Foot Goniometric Range of Motion Ankle and Foot Left Dorsiflexion with Knee Flexed 10 Dorsiflexion with Knee Extended 8 Plantarflexion 40 Comments demos tendency for inversion PT-OP-M Strength Start: 08/08/24 15:49 Freq: Status: Active Protocol: Document 08/29/24 09:48 NM (Rec: 08/29/24 10:43 NM [id number]) Hip Strength Hip Manual Muscle Testing Right Flexion (L2) 4+ Good+ Extension (S1) 4 Good Abduction 4 Good Adduction 4+ Good+ External Rotation 4+ Good+ Internal Rotation 4+ Good+ Left Flexion (L2) 4- Good- Extension (S1) 4- Good- Abduction 4- Good- Adduction 4 Good External Rotation 4- Good- Internal Rotation 4 Good Knee Strength Knee Manual Muscle Testing Right Flexion (S2) 4+ Good+ Extension (L3) 4+ Good+ Left Flexion (S2) 4- Good- Extension (L3) 4- Good- Comments IE: audible crepitus PT-OP-Q Treatments Start: 08/08/24 15:49 Freq: Status: Active Protocol: Document 08/29/24 09:48 NM (Rec: 08/29/24 10:43 NM [id number]) Therapeutic Exercises Prone Exercises hip ext Prone Exercise Name HEP Side bilateral Reps/Minutes 10 -less ROM L hip but good lift Comments cued hips flat on table; reports mild LBP so d/c Sitting Exercises sit to stand Side bilateral Equipment Used std chair Reps/Minutes 10 Comments hyperext <75% of time, worse c / fatigue; min cues ankle dorsiflexion Sitting Exercise Name eccentric control Side left Resistance level 3 band Reps/Minutes 20 c/ controlled lowering Comments for ecc control during gait Standing Exercises toe extension Side bilateral Equipment Used hand support balance Reps/Minutes 8 Gait Training Gait Activity pre-gait Description shoes off Device Used 1 hand support on bar Level of Assistance close SBA Treatment Focus gait mechanics, foot clearance Comments 1. Rocking fwd/bwd for weight acceptance, limit toe flex 2. stepping fwd/bwd 3. great toe ext c/ stepping cueing for posture, mechanics with verbal and tactile. Hallway Device Used none Level of Assistance close SBA Surface stable: tile, carpet Distance/Duration 496 ft Treatment Focus gait mechanics, foot clearance Comments demos equal step length >50% of time but still demos foot slap as fatigues about 1:30 PT-OP-R Modalities Start: 08/11/24 09:03 Freq: Status: Active Protocol: Document 08/15/24 11:35 SP (Rec: 08/15/24 12:33 SP [id number]) Electric Stimulation Electric Stimulation Biphasic Body Location L anterior tibialis Intensity 25 Frequency 35 Pulse Rate 300 Cycle 10/10 Ramp 2.0 Comments Performed in sitting and standing with NMES. 15 minutes total time, Performed in conjuction with exercises to decrease foot drop: (1) L Ankle Dorsiflexion AROM c/o band, (2) c/ level 1 band against resistance, (3) step taps to 2-4 step (progressing to double taps while maintaining ankle DF), (4) stepping over 2 step with 1 hand support for balance with controlled eccentric lowering. Skin assessed during and afterward. No redness, burning , or other skin changes; monitored closely throughout session. PT-OP-T Assessment and Plan Start: 08/08/24 15:49 Freq: Status: Active Protocol: Document 08/29/24 09:48 NM (Rec: 08/29/24 10:43 NM [id number]) Physical Therapy Assessment Goals Four Impairment difficulty with kicking LLE for swimming, 3+/5 MMT Short Term Goal (STG) Pt will increase L hip ext strength to at least 4/5 MMT in order to improve ability to kick at edge of pool 08/29/24: 4-/5 MMT STG Duration 8 weeks PROGRESSING 08/29 Three Impairment 30 sec STS score 8 from standard chair Short Term Goal (STG) Pt will demo L knee hyperextension with ascent during STS transfers <50% of the time without cueing in order to demonstrate increased quad strength 08/29/24: 10 STS with min cues to avoid hyperext, demos hyperext <75% of time STG Duration 6 weeks MET 08/29 Correction Goal (LTG) Pt will increase 30 sec STS score >10 from standard chair to demonstrate improved body mechanics during transfers and increased BLE strength LTG Duration 12 weeks Two Impairment activity tolerance, balance Correction Goal (LTG) If appropriate, pt will be educated on use of trek poles vs spc for stability during hiking LTG Duration 12 weeks One Impairment 6 MWT distance 1009 ft, no AD, no AFO Short Term Goal (STG) Pt will demonstrate more equal step length and less foot slap >50% of the time in order to demonstrate improved LLE strength 08/29/24: 496 ft c/o AD, demos more equal step length but foot slap with fatigue >50% of time STG Duration 6 weeks PROGRESSING 08/29 Electric Golf Cart Repairer Goal (LTG) Pt will increase 6 MWT distance >1000 ft with more equal step length and without dragging L foot LTG Duration 12 weeks Assessment Summary Assessment Emphasis on reducing supination during stance portion of gait, promotion of more weight bearing toward medial foot and great toe. Verbal and tactile cues needed . Still has L foot slap as fatigues but better step length and overall foot clearance with stance, less lateral trunk translation; still circumducts. Minimal cues needed for STS to prevent L knee hyperextension. Pt educated on transfer of care to different PT upon pt return d/t current PT upcoming move. Physical Therapy Plan Frequency and Duration Frequency of Treatment 2x/Week Duration of treatment (weeks) 12 Plan of Care Start Date 08/09/24 Plan of Care End Date 11/03/24 Therapeutic Interventions Therapeutic Interventions Aquatic Therapy,Balance Training,Coordination Training ,Gait Training,Home Exercise Program,Joint Mobilizations, Manual Therapy,Neuromuscular Re-education,Orthotic/ Prosthetic Management,Patient/ Caregiver Education,Self-Care/ Home Management,Sensory Integration,Soft Tissue Mobilization,Taping, Therapeutic Activities, Therapeutic Exercises Modalities Cold Pack/Ice Massage,Electric Stimulation,Hot Packs, Ultrasound Next Visit Focus/Plan Next Note Type Progress Note Next Visit Plan banded hip flexion with trunk rotation and elbow ext (trial wt) to prevent LUE flex, cont gait training and quad strength, limit ankle DF Plan of care: gait training, ankle DF and quad strengthening. Assess need for AFO vs shoe assist to prevent foot drop. Unstable surface training outdoors w/ 1 trek pole for hiking. Assess shoe wear for support Continue ankle DF training: cont DF w/ e-stim; progress banded DF, banded eccentric DF , rocking on towel, rockerboard, banded march, heel walk, DF c/ beanbags Stretch hip ER/IR, ankle inv/ ev strength
--- NOTE | 2024-10-06 11:31 | PT.OTN ---
Current Diagnoses Hemiplegia and hemiparesis following cerebral infarction affecting left non-dominant side (10/06/24) Other abnormalities of gait and mobility (10/06/24) Unspecified abnormalities of gait and mobility (10/06/24) Other lack of coordination (10/06/24) Weakness (10/06/24) Physical Therapy Treatment Note PT-OP-A Visit Information Start: 08/08/24 15:49 Freq: Status: Active Protocol: Document 10/06/24 10:45 DCW (Rec: 10/06/24 11:31 DCW [id number]) Out-Patient Physical Therapy Visit Information Visit Information Visit Type Treatment Note Visit Start Time 10:45 Visit Stop Time 11:30 Visit Number 8 Number of FIELD IRRIGATION WORKER Visits 0 Evaluation Information Evaluation Date 08/09/24 Precautions Precautions Hx CVA, falls PT-OP-B Current Condition Start: 08/08/24 15:49 Freq: Status: Active Protocol: Document 08/09/24 10:44 NM (Rec: 08/09/24 12:18 NM [id number]) Current Condition History of Current Condition Current Complaints gait, unstable surfaces, R knee pain w/ length gait History of Current Condition Pt had a stroke in March 01, 2021. Has L hemiplegia; R dominant. Pt has had extensive PT since her stroke in 2020. Pt was in w/c for 4 months following her stroke, then progressed to cane with 3 legs . Previously using an spc for mobility, now only uses for hiking or unstable surfaces. Pt has been ambulated without the cane for 4-5 months now. Pt likes to hike, takes the cane when hiking but able to ambulate without cane for household and most community mobility. Pt did have an AFO for her L ankle to correct her gait but has not used it for 2 years. When ambulating for long times, has foot slap. She stopped going to IR for PT 2 weeks ago. She has been doing a lot of muscle strengthening in PT. She recently saw her neurologist, had botox (last dose in June). Next expected dose end of September. Pt has been doing a youtube Dr. June Jansen and [employer] for 2 hours ea day for exercises. Pt reports pretty cj with balance, she has had 2 falls 1 year ago. Currently seeing OT for her hand; hx of speech therapy. Pt reports able to do all ADLs/ IADLs including cooking, cleaning, dressing, independently but slower than normal. Treatment Goals Patient/Caregiver Goals walk better (lift foot better, less to side, L elbow curling ), kicking for swimming PT-OP-C Subjective Start: 08/08/24 15:49 Freq: Status: Active Protocol: Document 10/06/24 10:45 DCW (Rec: 10/06/24 11:31 DCW [id number]) OP-PT Subjective Patient Comments Patient Comments [facility] PT-OP-D Balance Start: 08/08/24 15:49 Freq: Status: Active Protocol: Document 08/09/24 10:44 NM (Rec: 08/09/24 12:18 NM [id number]) Balance Tests Single Limb Standing Single Limb- Right 30 sec w/ increased sway, med/ lat instability at ankle Single Limb- Left 8 sec w/ increased med/lat instability at ankle Tandem Tandem Standing 30 sec w/ LLE leading PT-OP-G Mobility & Gait Start: 08/08/24 15:49 Freq: Status: Active Protocol: Document 08/09/24 10:44 NM (Rec: 08/09/24 12:18 NM [id number]) OP Mobility Evaluation Bed Mobility Rolling IND Supine to and from Sit IND Transfers Sit to Stand IND from standard chair. Demos tendency for L knee extension more quickly than R knee as transitioning to stance, slight weight shift toward RLE OP Gait Assessment Gait Gait Assistance Required: Standby Assistance Distance (Feet) 150 Assistive Devices Assistive Device None Gait Deviations General Gait Pattern Antalgic,Decreased Feet Clearance Factors Limiting Gait Function Factors Limiting Gait Function Abnormal Tonal Influences, Decreased Activity Tolerance, Decreased Strength,Poor Balance Comments Gait Comments Demos mild L hip circumduction , L plantarflexion and drags toes during swing; as fatigues , demos L foot slap. Slight hip hike on L to complete swing following circumduction. Demos tendency for quick L knee extension during stance with transition into mild hyperextension as fatigues. LUE begins to flex at elbow and wrist and supinate with both effort and fatigue. Limited trunk rotation, slight R lateral lean PT-OP-H Neuro Start: 08/08/24 15:49 Freq: Status: Active Protocol: Document 08/09/24 10:44 NM (Rec: 08/09/24 12:18 NM [id number]) Sensation Evaluation Comments Summary Comments BLE equally intact to light touch sensation Coordination Evaluation Upper Extremity Tests Right Finger to Nose Test Normal Performance Finger to Finger Test Normal Performance Alternate Nose to Finger Test Normal Performance Pronation/Supination Test Normal Performance Left Finger to Nose Test Moderate Impairment Finger to Finger Test Minimal Impairment Alternate Nose to Finger Test Moderate Impairment Pronation/Supination Test Moderate Impairment Lower Extremity Tests Right Alternate Heel to Knee; Heel to Toe Test Normal Performance Heel on Perez Test Normal Performance Foot Tapping Test Normal Performance Drawing a [place] w/Foot Test Normal Performance Left Alternate Heel to Knee; Heel to Toe Test Moderate Impairment Heel on Perez Test Moderate Impairment Foot Tapping Test Minimal Impairment Drawing a [place] w/Foot Test Minimal Impairment Muscle Tone Tone Assessment Left Upper Extremity Muscle Tone Comments Tendency for L elbow flex, wrist flex, and finger flex, supination with exertion Posturally thumb and MPJ hyperextension Left Lower Extremity Flexor Tone Description Normal Extensor Tone Description Mild Hypertonicity Muscle Tone Comments tendency for knee ext, plantarflexion and ankle inversion PT-OP-K Range of Motion Start: 08/08/24 15:49 Freq: Status: Active Protocol: Document 08/09/24 10:44 NM (Rec: 08/09/24 12:18 NM [id number]) Ankle and Foot Goniometric Range of Motion Ankle and Foot Left Dorsiflexion with Knee Flexed 10 Dorsiflexion with Knee Extended 8 Plantarflexion 40 Comments demos tendency for inversion PT-OP-M Strength Start: 08/08/24 15:49 Freq: Status: Active Protocol: Document 08/29/24 09:48 NM (Rec: 08/29/24 10:43 NM [id number]) Hip Strength Hip Manual Muscle Testing Right Flexion (L2) 4+ Good+ Extension (S1) 4 Good Abduction 4 Good Adduction 4+ Good+ External Rotation 4+ Good+ Internal Rotation 4+ Good+ Left Flexion (L2) 4- Good- Extension (S1) 4- Good- Abduction 4- Good- Adduction 4 Good External Rotation 4- Good- Internal Rotation 4 Good Knee Strength Knee Manual Muscle Testing Right Flexion (S2) 4+ Good+ Extension (L3) 4+ Good+ Left Flexion (S2) 4- Good- Extension (L3) 4- Good- Comments IE: audible crepitus PT-OP-Q Treatments Start: 08/08/24 15:49 Freq: Status: Active Protocol: Document 10/06/24 10:45 DCW (Rec: 10/06/24 11:31 DCW [id number]) Gym Equipment Shuttle Recovery B squat Details VCs to keep knees apart Resistance 75# (three navy) Reps/Time 20 ea; progress resistance next tx as needed L squat Details VCs to limit knee hyperextension Resistance 50# (teal) Shuttle Balance Red Details WBOS, Staggered Therapeutic Exercises Standing Exercises Hip Extension Standing Exercise Name Hip Extension Side bilateral Resistance Green loop Equipment Used // bars Lunge Standing Exercise Name Lunge Equipment Used // Bars Comments added BOSU Other Exercises Quadruped Other Exercise Name Alternating bird-dogs Neuro Re-Education Treatment Balance Activities Uneven Surfaces Details Ambulation on unstable surfaces Surface Blue pads with objects under PT-OP-R Modalities Start: 08/11/24 09:03 Freq: Status: Active Protocol: Document 08/15/24 11:35 SP (Rec: 08/15/24 12:33 SP [id number]) Electric Stimulation Electric Stimulation Biphasic Body Location L anterior tibialis Intensity 25 Frequency 35 Pulse Rate 300 Cycle 10/10 Ramp 2.0 Comments Performed in sitting and standing with NMES. 15 minutes total time, Performed in conjuction with exercises to decrease foot drop: (1) L Ankle Dorsiflexion AROM c/o band, (2) c/ level 1 band against resistance, (3) step taps to 2-4 step (progressing to double taps while maintaining ankle DF), (4) stepping over 2 step with 1 hand support for balance with controlled eccentric lowering. Skin assessed during and afterward. No redness, burning , or other skin changes; monitored closely throughout session. PT-OP-T Assessment and Plan Start: 08/08/24 15:49 Freq: Status: Active Protocol: Document 10/06/24 10:45 DCW (Rec: 10/06/24 11:31 DCW [id number]) Physical Therapy Assessment Impairments Impairments Activity Tolerance,Balance, Functional Activities, Functional Mobility,Gait,Pain, Posture,ROM,Sensation,Soft Tissue Mobility,Strength,Tone, Transfers Goals Four Impairment difficulty with kicking LLE for swimming, 3+/5 MMT Short Term Goal (STG) Pt will increase L hip ext strength to at least 4/5 MMT in order to improve ability to kick at edge of pool 08/29/24: 4-/5 MMT STG Duration 8 weeks PROGRESSING 08/29 Three Impairment 30 sec STS score 8 from standard chair Short Term Goal (STG) Pt will demo L knee hyperextension with ascent during STS transfers <50% of the time without cueing in order to demonstrate increased quad strength 08/29/24: 10 STS with min cues to avoid hyperext, demos hyperext <75% of time STG Duration 6 weeks MET 08/29 Halfway Goal (LTG) Pt will increase 30 sec STS score >10 from standard chair to demonstrate improved body mechanics during transfers and increased BLE strength LTG Duration 12 weeks Two Impairment activity tolerance, balance Health And Safety Consultant Goal (LTG) If appropriate, pt will be educated on use of trek poles vs spc for stability during hiking LTG Duration 12 weeks One Impairment 6 MWT distance 1009 ft, no AD, no AFO Short Term Goal (STG) Pt will demonstrate more equal step length and less foot slap >50% of the time in order to demonstrate improved LLE strength 08/29/24: 496 ft c/o AD, demos more equal step length but foot slap with fatigue >50% of time STG Duration 6 weeks PROGRESSING 08/29 Halfway Goal (LTG) Pt will increase 6 MWT distance >1000 ft with more equal step length and without dragging L foot LTG Duration 12 weeks Assessment Summary Assessment Pt demonstrated very good response to new challenges today, did well on shuttle balance and with quadruped activities. Continue to focus on improving gait quality, strengthening, and improving activity tolerance. Physical Therapy Plan Frequency and Duration Frequency of Treatment 2x/Week Duration of treatment (weeks) 12 Plan of Care Start Date 08/09/24 Plan of Care End Date 11/03/24 Therapeutic Interventions Therapeutic Interventions Aquatic Therapy,Balance Training,Coordination Training ,Gait Training,Home Exercise Program,Joint Mobilizations, Manual Therapy,Neuromuscular Re-education,Orthotic/ Prosthetic Management,Patient/ Caregiver Education,Self-Care/ Home Management,Sensory Integration,Soft Tissue Mobilization,Taping, Therapeutic Activities, Therapeutic Exercises Modalities Cold Pack/Ice Massage,Electric Stimulation,Hot Packs, Ultrasound Next Visit Focus/Plan Next Note Type Treatment Note Next Visit Plan banded hip flexion with trunk rotation and elbow ext (trial wt) to prevent LUE flex, cont gait training and quad strength, limit ankle DF Plan of care: gait training, ankle DF and quad strengthening. Assess need for AFO vs shoe assist to prevent foot drop. Assess shoe wear for support Continue ankle DF training: cont DF w/ e-stim; progress banded DF, banded eccentric DF , rocking on towel, rockerboard, banded march, heel walk, DF c/ beanbags Stretch hip ER/IR, ankle inv/ ev strength
--- NOTE | 2024-10-12 13:46 | PT.OTN ---
Current Diagnoses Hemiplegia and hemiparesis following cerebral infarction affecting left non-dominant side (10/12/24) Other abnormalities of gait and mobility (10/12/24) Unspecified abnormalities of gait and mobility (10/12/24) Other lack of coordination (10/12/24) Weakness (10/12/24) Physical Therapy Treatment Note PT-OP-A Visit Information Start: 08/08/24 15:49 Freq: Status: Active Protocol: Document 10/12/24 13:02 SP (Rec: 10/12/24 13:52 SP [id number]) Out-Patient Physical Therapy Visit Information Visit Information Visit Type Treatment Note Visit Start Time 13:02 Visit Stop Time 13:46 Visit Number 9 (09/25 since last PN) Number of ELECTRONIC TRANSACTION IMPLEMENTER Visits 1 Evaluation Information Evaluation Date 08/09/24 Precautions Precautions Hx CVA, falls PT-OP-B Current Condition Start: 08/08/24 15:49 Freq: Status: Active Protocol: Document 08/09/24 10:44 NM (Rec: 08/09/24 12:18 NM [id number]) Current Condition History of Current Condition Current Complaints gait, unstable surfaces, R knee pain w/ length gait History of Current Condition Pt had a stroke in March 01, 2021. Has L hemiplegia; R dominant. Pt has had extensive PT since her stroke in 2020. Pt was in w/c for 4 months following her stroke, then progressed to cane with 3 legs . Previously using an spc for mobility, now only uses for hiking or unstable surfaces. Pt has been ambulated without the cane for 4-5 months now. Pt likes to hike, takes the cane when hiking but able to ambulate without cane for household and most community mobility. Pt did have an AFO for her L ankle to correct her gait but has not used it for 2 years. When ambulating for long times, has foot slap. She stopped going to [facility] for PT 2 weeks ago. She has been doing a lot of muscle strengthening in PT. She recently saw her neurologist, had botox (last dose in June). Next expected dose end of September. Pt has been doing a youtube Dr. June Jansen and [employer] for 2 hours ea day for exercises. Pt reports pretty cj with balance, she has had 2 falls 1 year ago. Currently seeing OT for her hand; hx of speech therapy. Pt reports able to do all ADLs/ IADLs including cooking, cleaning, dressing, independently but slower than normal. Treatment Goals Patient/Caregiver Goals walk better (lift foot better, less to side, L elbow curling ), kicking for swimming PT-OP-C Subjective Start: 08/08/24 15:49 Freq: Status: Active Protocol: Document 10/12/24 13:02 SP (Rec: 10/12/24 13:52 SP [id number]) OP-PT Subjective Patient Comments Patient Comments Pt reports only has 1 more appt before goes out of town -11/14. PT-OP-D Balance Start: 08/08/24 15:49 Freq: Status: Active Protocol: Document 08/09/24 10:44 NM (Rec: 08/09/24 12:18 NM [id number]) Balance Tests Single Limb Standing Single Limb- Right 30 sec w/ increased sway, med/ lat instability at ankle Single Limb- Left 8 sec w/ increased med/lat instability at ankle Tandem Tandem Standing 30 sec w/ LLE leading PT-OP-G Mobility & Gait Start: 08/08/24 15:49 Freq: Status: Active Protocol: Document 08/09/24 10:44 NM (Rec: 08/09/24 12:18 NM [id number]) OP Mobility Evaluation Bed Mobility Rolling IND Supine to and from Sit IND Transfers Sit to Stand IND from standard chair. Demos tendency for L knee extension more quickly than R knee as transitioning to stance, slight weight shift toward RLE OP Gait Assessment Gait Gait Assistance Required: Standby Assistance Distance (Feet) 150 Assistive Devices Assistive Device None Gait Deviations General Gait Pattern Antalgic,Decreased Feet Clearance Factors Limiting Gait Function Factors Limiting Gait Function Abnormal Tonal Influences, Decreased Activity Tolerance, Decreased Strength,Poor Balance Comments Gait Comments Demos mild L hip circumduction , L plantarflexion and drags toes during swing; as fatigues , demos L foot slap. Slight hip hike on L to complete swing following circumduction. Demos tendency for quick L knee extension during stance with transition into mild hyperextension as fatigues. LUE begins to flex at elbow and wrist and supinate with both effort and fatigue. Limited trunk rotation, slight R lateral lean PT-OP-H Neuro Start: 08/08/24 15:49 Freq: Status: Active Protocol: Document 08/09/24 10:44 NM (Rec: 08/09/24 12:18 NM [id number]) Sensation Evaluation Comments Summary Comments BLE equally intact to light touch sensation Coordination Evaluation Upper Extremity Tests Right Finger to Nose Test Normal Performance Finger to Finger Test Normal Performance Alternate Nose to Finger Test Normal Performance Pronation/Supination Test Normal Performance Left Finger to Nose Test Moderate Impairment Finger to Finger Test Minimal Impairment Alternate Nose to Finger Test Moderate Impairment Pronation/Supination Test Moderate Impairment Lower Extremity Tests Right Alternate Heel to Knee; Heel to Toe Test Normal Performance Heel on Perez Test Normal Performance Foot Tapping Test Normal Performance Drawing a [place] w/Foot Test Normal Performance Left Alternate Heel to Knee; Heel to Toe Test Moderate Impairment Heel on Perez Test Moderate Impairment Foot Tapping Test Minimal Impairment Drawing a [place] w/Foot Test Minimal Impairment Muscle Tone Tone Assessment Left Upper Extremity Muscle Tone Comments Tendency for L elbow flex, wrist flex, and finger flex, supination with exertion Posturally thumb and MPJ hyperextension Left Lower Extremity Flexor Tone Description Normal Extensor Tone Description Mild Hypertonicity Muscle Tone Comments tendency for knee ext, plantarflexion and ankle inversion PT-OP-K Range of Motion Start: 08/08/24 15:49 Freq: Status: Active Protocol: Document 08/09/24 10:44 NM (Rec: 08/09/24 12:18 NM [id number]) Ankle and Foot Goniometric Range of Motion Ankle and Foot Left Dorsiflexion with Knee Flexed 10 Dorsiflexion with Knee Extended 8 Plantarflexion 40 Comments demos tendency for inversion PT-OP-M Strength Start: 08/08/24 15:49 Freq: Status: Active Protocol: Document 08/29/24 09:48 NM (Rec: 08/29/24 10:43 NM [id number]) Hip Strength Hip Manual Muscle Testing Right Flexion (L2) 4+ Good+ Extension (S1) 4 Good Abduction 4 Good Adduction 4+ Good+ External Rotation 4+ Good+ Internal Rotation 4+ Good+ Left Flexion (L2) 4- Good- Extension (S1) 4- Good- Abduction 4- Good- Adduction 4 Good External Rotation 4- Good- Internal Rotation 4 Good Knee Strength Knee Manual Muscle Testing Right Flexion (S2) 4+ Good+ Extension (L3) 4+ Good+ Left Flexion (S2) 4- Good- Extension (L3) 4- Good- Comments IE: audible crepitus PT-OP-Q Treatments Start: 08/08/24 15:49 Freq: Status: Active Protocol: Document 10/12/24 13:02 SP (Rec: 10/12/24 13:52 SP [id number]) Gym Equipment Shuttle Recovery B squat Details TB #2 around thighs, cue knees apart Resistance 75#> 87# 2 navy, 1 teal Reps/Time 20 ea 75#> 87# 10 reps L squat Details cued L knee alignment and no hyperextension Resistance 50# (teal) Reps/Time 3x10 Therapeutic Exercises Standing Exercises Lunge Standing Exercise Name Lunge Side bilateral Equipment Used rail, BOSU Reps/Minutes 2x10 Comments cued trunk forward (no rotate) , knee alignment withfoot Other Exercises Quadruped Other Exercise Name Alternating bird-dogs Reps/Minutes 5 reps each side alternating Comments cued slow pacing, glide UE/LE then lift for stability support PT-OP-R Modalities Start: 08/11/24 09:03 Freq: Status: Active Protocol: Document 08/15/24 11:35 SP (Rec: 08/15/24 12:33 SP [id number]) Electric Stimulation Electric Stimulation Biphasic Body Location L anterior tibialis Intensity 25 Frequency 35 Pulse Rate 300 Cycle 10/10 Ramp 2.0 Comments Performed in sitting and standing with NMES. 15 minutes total time, Performed in conjuction with exercises to decrease foot drop: (1) L Ankle Dorsiflexion AROM c/o band, (2) c/ level 1 band against resistance, (3) step taps to 2-4 step (progressing to double taps while maintaining ankle DF), (4) stepping over 2 step with 1 hand support for balance with controlled eccentric lowering. Skin assessed during and afterward. No redness, burning , or other skin changes; monitored closely throughout session. PT-OP-T Assessment and Plan Start: 08/08/24 15:49 Freq: Status: Active Protocol: Document 10/12/24 13:02 SP (Rec: 10/12/24 13:52 SP [id number]) Physical Therapy Assessment Goals Four Impairment difficulty with kicking LLE for swimming, 3+/5 MMT Short Term Goal (STG) Pt will increase L hip ext strength to at least 4/5 MMT in order to improve ability to kick at edge of pool 08/29/24: 4-/5 MMT STG Duration 8 weeks PROGRESSING 08/29 Three Impairment 30 sec STS score 8 from standard chair Short Term Goal (STG) Pt will demo L knee hyperextension with ascent during STS transfers <50% of the time without cueing in order to demonstrate increased quad strength 08/29/24: 10 STS with min cues to avoid hyperext, demos hyperext <75% of time STG Duration 6 weeks MET 08/29 Cutter Gas Goal (LTG) Pt will increase 30 sec STS score >10 from standard chair to demonstrate improved body mechanics during transfers and increased BLE strength LTG Duration 12 weeks Two Impairment activity tolerance, balance Cutter Gas Goal (LTG) If appropriate, pt will be educated on use of trek poles vs spc for stability during hiking LTG Duration 12 weeks One Impairment 6 MWT distance 1009 ft, no AD, no AFO Short Term Goal (STG) Pt will demonstrate more equal step length and less foot slap >50% of the time in order to demonstrate improved LLE strength 08/29/24: 496 ft c/o AD, demos more equal step length but foot slap with fatigue >50% of time STG Duration 6 weeks PROGRESSING 08/29 Custodial Goal (LTG) Pt will increase 6 MWT distance >1000 ft with more equal step length and without dragging L foot LTG Duration 12 weeks Assessment Summary Assessment Pt improved knee alignment corrections during BOSU lunges with UE support, cues for trunk alignment during wt shift. BIrd dog is challenging but able to peform, cued slower pacing. Improves DF foot clearance on LLE after lunge activity. Physical Therapy Plan Frequency and Duration Frequency of Treatment 2x/Week Duration of treatment (weeks) 12 Plan of Care Start Date 08/09/24 Plan of Care End Date 11/03/24 Therapeutic Interventions Therapeutic Interventions Aquatic Therapy,Balance Training,Coordination Training ,Gait Training,Home Exercise Program,Joint Mobilizations, Manual Therapy,Neuromuscular Re-education,Orthotic/ Prosthetic Management,Patient/ Caregiver Education,Self-Care/ Home Management,Sensory Integration,Soft Tissue Mobilization,Taping, Therapeutic Activities, Therapeutic Exercises Modalities Cold Pack/Ice Massage,Electric Stimulation,Hot Packs, Ultrasound Next Visit Focus/Plan Next Note Type Treatment Note Next Visit Plan Check if pt can see PT before OOT 4/7 late evening) banded hip flexion with trunk rotation and elbow ext (trial wt) to prevent LUE flex, cont gait training and quad strength, limit ankle DF Plan of care: gait training, ankle DF and quad strengthening. Assess need for AFO vs shoe assist to prevent foot drop. Assess shoe wear for support Continue ankle DF training: cont DF w/ e-stim; progress banded DF, banded eccentric DF , rocking on towel, rockerboard, banded march, heel walk, DF c/ beanbags Stretch hip ER/IR, ankle inv/ ev strength
--- NOTE | 2024-10-20 15:06 | PT.OTN ---
Current Diagnoses Hemiplegia and hemiparesis following cerebral infarction affecting left non-dominant side (10/20/24) Other abnormalities of gait and mobility (10/20/24) Unspecified abnormalities of gait and mobility (10/20/24) Other lack of coordination (10/20/24) Weakness (10/20/24) Physical Therapy Treatment Note PT-OP-A Visit Information Start: 08/08/24 15:49 Freq: Status: Active Protocol: Document 10/20/24 12:56 AB (Rec: 10/20/24 15:06 AB [id number]) Out-Patient Physical Therapy Visit Information Visit Information Visit Type Treatment Note Visit Note Access Code: [email or web address] Visit Start Time 13:48 Visit Stop Time 14:38 Visit Number 10 (10/26 since last PN) Number of MANAGER RESORT Visits 2 Evaluation Information Evaluation Date 08/09/24 Precautions Precautions Hx CVA, falls PT-OP-B Current Condition Start: 08/08/24 15:49 Freq: Status: Active Protocol: Document 08/09/24 10:44 NM (Rec: 08/09/24 12:18 NM [id number]) Current Condition History of Current Condition Current Complaints gait, unstable surfaces, R knee pain w/ length gait History of Current Condition Pt had a stroke in March 01, 2021. Has L hemiplegia; R dominant. Pt has had extensive PT since her stroke in 2020. Pt was in w/c for 4 months following her stroke, then progressed to cane with 3 legs . Previously using an spc for mobility, now only uses for hiking or unstable surfaces. Pt has been ambulated without the cane for 4-5 months now. Pt likes to hike, takes the cane when hiking but able to ambulate without cane for household and most community mobility. Pt did have an AFO for her L ankle to correct her gait but has not used it for 2 years. When ambulating for long times, has foot slap. She stopped going to [facility] for PT 2 weeks ago. She has been doing a lot of muscle strengthening in PT. She recently saw her neurologist, had botox (last dose in June). Next expected dose end of September. Pt has been doing a youtube Dr. June Jansen and [employer] for 2 hours ea day for exercises. Pt reports pretty cj with balance, she has had 2 falls 1 year ago. Currently seeing OT for her hand; hx of speech therapy. Pt reports able to do all ADLs/ IADLs including cooking, cleaning, dressing, independently but slower than normal. Treatment Goals Patient/Caregiver Goals walk better (lift foot better, less to side, L elbow curling ), kicking for swimming PT-OP-C Subjective Start: 08/08/24 15:49 Freq: Status: Active Protocol: Document 10/20/24 12:56 AB (Rec: 10/20/24 15:06 AB [id number]) OP-PT Subjective Patient Comments Patient Comments Patient reports she is the same. Patient reports she is leaving for [place]. Patient reports she was swimming November of 2022 a little with a pool noodle, with family present. PT-OP-D Balance Start: 08/08/24 15:49 Freq: Status: Active Protocol: Document 08/09/24 10:44 NM (Rec: 08/09/24 12:18 NM [id number]) Balance Tests Single Limb Standing Single Limb- Right 30 sec w/ increased sway, med/ lat instability at ankle Single Limb- Left 8 sec w/ increased med/lat instability at ankle Tandem Tandem Standing 30 sec w/ LLE leading PT-OP-G Mobility & Gait Start: 08/08/24 15:49 Freq: Status: Active Protocol: Document 08/09/24 10:44 NM (Rec: 08/09/24 12:18 NM [id number]) OP Mobility Evaluation Bed Mobility Rolling IND Supine to and from Sit IND Transfers Sit to Stand IND from standard chair. Demos tendency for L knee extension more quickly than R knee as transitioning to stance, slight weight shift toward RLE OP Gait Assessment Gait Gait Assistance Required: Standby Assistance Distance (Feet) 150 Assistive Devices Assistive Device None Gait Deviations General Gait Pattern Antalgic,Decreased Feet Clearance Factors Limiting Gait Function Factors Limiting Gait Function Abnormal Tonal Influences, Decreased Activity Tolerance, Decreased Strength,Poor Balance Comments Gait Comments Demos mild L hip circumduction , L plantarflexion and drags toes during swing; as fatigues , demos L foot slap. Slight hip hike on L to complete swing following circumduction. Demos tendency for quick L knee extension during stance with transition into mild hyperextension as fatigues. LUE begins to flex at elbow and wrist and supinate with both effort and fatigue. Limited trunk rotation, slight R lateral lean PT-OP-H Neuro Start: 08/08/24 15:49 Freq: Status: Active Protocol: Document 08/09/24 10:44 NM (Rec: 08/09/24 12:18 NM [id number]) Sensation Evaluation Comments Summary Comments BLE equally intact to light touch sensation Coordination Evaluation Upper Extremity Tests Right Finger to Nose Test Normal Performance Finger to Finger Test Normal Performance Alternate Nose to Finger Test Normal Performance Pronation/Supination Test Normal Performance Left Finger to Nose Test Moderate Impairment Finger to Finger Test Minimal Impairment Alternate Nose to Finger Test Moderate Impairment Pronation/Supination Test Moderate Impairment Lower Extremity Tests Right Alternate Heel to Knee; Heel to Toe Test Normal Performance Heel on Perez Test Normal Performance Foot Tapping Test Normal Performance Drawing a [place] w/Foot Test Normal Performance Left Alternate Heel to Knee; Heel to Toe Test Moderate Impairment Heel on Perez Test Moderate Impairment Foot Tapping Test Minimal Impairment Drawing a [place] w/Foot Test Minimal Impairment Muscle Tone Tone Assessment Left Upper Extremity Muscle Tone Comments Tendency for L elbow flex, wrist flex, and finger flex, supination with exertion Posturally thumb and MPJ hyperextension Left Lower Extremity Flexor Tone Description Normal Extensor Tone Description Mild Hypertonicity Muscle Tone Comments tendency for knee ext, plantarflexion and ankle inversion PT-OP-K Range of Motion Start: 08/08/24 15:49 Freq: Status: Active Protocol: Document 08/09/24 10:44 NM (Rec: 08/09/24 12:18 NM [id number]) Ankle and Foot Goniometric Range of Motion Ankle and Foot Left Dorsiflexion with Knee Flexed 10 Dorsiflexion with Knee Extended 8 Plantarflexion 40 Comments demos tendency for inversion PT-OP-M Strength Start: 08/08/24 15:49 Freq: Status: Active Protocol: Document 08/29/24 09:48 NM (Rec: 08/29/24 10:43 NM [id number]) Hip Strength Hip Manual Muscle Testing Right Flexion (L2) 4+ Good+ Extension (S1) 4 Good Abduction 4 Good Adduction 4+ Good+ External Rotation 4+ Good+ Internal Rotation 4+ Good+ Left Flexion (L2) 4- Good- Extension (S1) 4- Good- Abduction 4- Good- Adduction 4 Good External Rotation 4- Good- Internal Rotation 4 Good Knee Strength Knee Manual Muscle Testing Right Flexion (S2) 4+ Good+ Extension (L3) 4+ Good+ Left Flexion (S2) 4- Good- Extension (L3) 4- Good- Comments IE: audible crepitus PT-OP-Q Treatments Start: 08/08/24 15:49 Freq: Status: Active Protocol: Document 10/20/24 12:56 AB (Rec: 10/20/24 15:06 AB [id number]) Therapeutic Exercises Sitting Exercises sit to stand Side bilateral Equipment Used std chair Reps/Minutes 5 Comments from mat Standing Exercises Heel raise Reps/Minutes B X 3 single leg X 3 with UE use weight shifting Standing Exercise Name with UE support AP and lateral Equipment Used HEP Reps/Minutes X8 each calf stretch Standing Exercise Name gastroc and soleus Equipment Used HARSH Reps/Minutes 60 sec each Therapeutic Activity Therapeutic Activity standing to supine rolling, crawling Name chair seat for UE support standing up from floor Reps/Minutes 14 min Comments CGA for floor transfer does not use chair sit for stand to high kneel, but does for high kneel to standing, VC for feet on floor when rolling, to roll very slowly, and for reciprocal pattern with crawling Gait Training Gait Activity without device Description focus on avoiding hip hike, weight shift, posture Device Used without device Level of Assistance supervision Surface floor Distance/Duration 12 feet X 2 pre-gait Description Lat/fwd WS with opp LE step Device Used HEP Level of Assistance CGA to distant supervision with and without alt UE use Treatment Focus 5-6 minutes X 3 during session progressed to distant supervision Comments VC for weight shift, feet shoulder width apart Neuro Re-Education Treatment Balance Activities SLS Details without UE use CGA Reps/Duration X 1 each LE wall fall Reps/Duration X10 Comments CGA to close supervision, pillow behind back PT-OP-R Modalities Start: 08/11/24 09:03 Freq: Status: Active Protocol: Document 08/15/24 11:35 SP (Rec: 08/15/24 12:33 SP [id number]) Electric Stimulation Electric Stimulation Biphasic Body Location L anterior tibialis Intensity 25 Frequency 35 Pulse Rate 300 Cycle 10/10 Ramp 2.0 Comments Performed in sitting and standing with NMES. 15 minutes total time, Performed in conjuction with exercises to decrease foot drop: (1) L Ankle Dorsiflexion AROM c/o band, (2) c/ level 1 band against resistance, (3) step taps to 2-4 step (progressing to double taps while maintaining ankle DF), (4) stepping over 2 step with 1 hand support for balance with controlled eccentric lowering. Skin assessed during and afterward. No redness, burning , or other skin changes; monitored closely throughout session. PT-OP-T Assessment and Plan Start: 08/08/24 15:49 Freq: Status: Active Protocol: Document 10/20/24 12:56 AB (Rec: 10/20/24 15:06 AB [id number]) Physical Therapy Assessment Goals Four Impairment difficulty with kicking LLE for swimming, 3+/5 MMT Short Term Goal (STG) Pt will increase L hip ext strength to at least 4/5 MMT in order to improve ability to kick at edge of pool 08/29/24: 4-/5 MMT STG Duration 8 weeks PROGRESSING 08/29 Three Impairment 30 sec STS score 8 from standard chair Short Term Goal (STG) Pt will demo L knee hyperextension with ascent during STS transfers <50% of the time without cueing in order to demonstrate increased quad strength 08/29/24: 10 STS with min cues to avoid hyperext, demos hyperext <75% of time STG Duration 6 weeks MET 08/29 Psychologist Research Assistant Goal (LTG) Pt will increase 30 sec STS score >10 from standard chair to demonstrate improved body mechanics during transfers and increased BLE strength LTG Duration 12 weeks Two Impairment activity tolerance, balance Prison Goal (LTG) If appropriate, pt will be educated on use of trek poles vs spc for stability during hiking LTG Duration 12 weeks One Impairment 6 MWT distance 1009 ft, no AD, no AFO Short Term Goal (STG) Pt will demonstrate more equal step length and less foot slap >50% of the time in order to demonstrate improved LLE strength 08/29/24: 496 ft c/o AD, demos more equal step length but foot slap with fatigue >50% of time STG Duration 6 weeks PROGRESSING 08/29 Prison Goal (LTG) Pt will increase 6 MWT distance >1000 ft with more equal step length and without dragging L foot LTG Duration 12 weeks Assessment Summary Assessment Patient able to ambulate ( without device )with decreased hip hike, but continues to require increased verbal cues. Physical Therapy Plan Frequency and Duration Frequency of Treatment 2x/Week Duration of treatment (weeks) 12 Plan of Care Start Date 08/09/24 Plan of Care End Date 11/03/24 Therapeutic Interventions Therapeutic Interventions Aquatic Therapy,Balance Training,Coordination Training ,Gait Training,Home Exercise Program,Joint Mobilizations, Manual Therapy,Neuromuscular Re-education,Orthotic/ Prosthetic Management,Patient/ Caregiver Education,Self-Care/ Home Management,Sensory Integration,Soft Tissue Mobilization,Taping, Therapeutic Activities, Therapeutic Exercises Modalities Cold Pack/Ice Massage,Electric Stimulation,Hot Packs, Ultrasound Next Visit Focus/Plan Next Note Type Treatment Note Next Visit Plan Check if pt can see PT before OOT / late evening) banded hip flexion with trunk rotation and elbow ext (trial wt) to prevent LUE flex, cont gait training and quad strength, limit ankle DF Plan of care: gait training, ankle DF and quad strengthening. Assess need for AFO vs shoe assist to prevent foot drop. Assess shoe wear for support Continue ankle DF training: cont DF w/ e-stim; progress banded DF, banded eccentric DF , rocking on towel, rockerboard, banded march, heel walk, DF c/ beanbags Stretch hip ER/IR, ankle inv/ ev strength
--- NOTE | 2024-11-08 09:39 | PT.OPDS ---
Current Diagnoses Hemiplegia and hemiparesis following cerebral infarction affecting left non-dominant side (10/20/24) Other abnormalities of gait and mobility (10/20/24) Unspecified abnormalities of gait and mobility (10/20/24) Other lack of coordination (10/20/24) Weakness (10/20/24) Visit Care Team Role Provider Type Kedar Lemus MD Family Provider Physician Primary Care Provider Specialty: Family Practice Obstetrics Address: [address] [place], [address] Email: [email or web address] Bayron Goncalves MD Attending Provider Non-Staff Referring Provider Specialty: Neurology Address: [address] [place], [address] Email: Visit Number Visit Number 10 (10/26 since last PN) Discharge Summary PT-OP-B Current Condition Start: 08/08/24 15:49 Freq: Status: Active Protocol: Document 08/09/24 10:44 NM (Rec: 08/09/24 12:18 NM [id number]) Current Condition History of Current Condition Current Complaints gait, unstable surfaces, R knee pain w/ length gait History of Current Condition Pt had a stroke in March 01, 2021. Has L hemiplegia; R dominant. Pt has had extensive PT since her stroke in 2020. Pt was in w/c for 4 months following her stroke, then progressed to cane with 3 legs . Previously using an spc for mobility, now only uses for hiking or unstable surfaces. Pt has been ambulated without the cane for 4-5 months now. Pt likes to hike, takes the cane when hiking but able to ambulate without cane for household and most community mobility. Pt did have an AFO for her L ankle to correct her gait but has not used it for 2 years. When ambulating for long times, has foot slap. She stopped going to IR for PT 2 weeks ago. She has been doing a lot of muscle strengthening in PT. She recently saw her neurologist, had botox (last dose in June). Next expected dose end of September. Pt has been doing a youtube Dr. June Jansen and [employer] for 2 hours ea day for exercises. Pt reports pretty cj with balance, she has had 2 falls 1 year ago. Currently seeing OT for her hand; hx of speech therapy. Pt reports able to do all ADLs/ IADLs including cooking, cleaning, dressing, independently but slower than normal. Treatment Goals Patient/Caregiver Goals walk better (lift foot better, less to side, L elbow curling ), kicking for swimming PT-OP-C Subjective Start: 08/08/24 15:49 Freq: Status: Active Protocol: Document 10/20/24 12:56 AB (Rec: 10/20/24 15:06 AB [id number]) OP-PT Subjective Patient Comments Patient Comments Patient reports she is the same. Patient reports she is leaving for [place]. Patient reports she was swimming November of 2022 a little with a pool noodle, with family present. PT-OP-D Balance Start: 08/08/24 15:49 Freq: Status: Active Protocol: Document 08/09/24 10:44 NM (Rec: 08/09/24 12:18 NM [id number]) Balance Tests Single Limb Standing Single Limb- Right 30 sec w/ increased sway, med/ lat instability at ankle Single Limb- Left 8 sec w/ increased med/lat instability at ankle Tandem Tandem Standing 30 sec w/ LLE leading PT-OP-G Mobility & Gait Start: 08/08/24 15:49 Freq: Status: Active Protocol: Document 08/09/24 10:44 NM (Rec: 08/09/24 12:18 NM [id number]) OP Mobility Evaluation Bed Mobility Rolling IND Supine to and from Sit IND Transfers Sit to Stand IND from standard chair. Demos tendency for L knee extension more quickly than R knee as transitioning to stance, slight weight shift toward RLE OP Gait Assessment Gait Gait Assistance Required: Standby Assistance Distance (Feet) 150 Assistive Devices Assistive Device None Gait Deviations General Gait Pattern Antalgic,Decreased Feet Clearance Factors Limiting Gait Function Factors Limiting Gait Function Abnormal Tonal Influences, Decreased Activity Tolerance, Decreased Strength,Poor Balance Comments Gait Comments Demos mild L hip circumduction , L plantarflexion and drags toes during swing; as fatigues , demos L foot slap. Slight hip hike on L to complete swing following circumduction. Demos tendency for quick L knee extension during stance with transition into mild hyperextension as fatigues. LUE begins to flex at elbow and wrist and supinate with both effort and fatigue. Limited trunk rotation, slight R lateral lean PT-OP-H Neuro Start: 08/08/24 15:49 Freq: Status: Active Protocol: Document 08/09/24 10:44 NM (Rec: 08/09/24 12:18 NM [id number]) Sensation Evaluation Comments Summary Comments BLE equally intact to light touch sensation Coordination Evaluation Upper Extremity Tests Right Finger to Nose Test Normal Performance Finger to Finger Test Normal Performance Alternate Nose to Finger Test Normal Performance Pronation/Supination Test Normal Performance Left Finger to Nose Test Moderate Impairment Finger to Finger Test Minimal Impairment Alternate Nose to Finger Test Moderate Impairment Pronation/Supination Test Moderate Impairment Lower Extremity Tests Right Alternate Heel to Knee; Heel to Toe Test Normal Performance Heel on Perez Test Normal Performance Foot Tapping Test Normal Performance Drawing a Hamilton w/Foot Test Normal Performance Left Alternate Heel to Knee; Heel to Toe Test Moderate Impairment Heel on Perez Test Moderate Impairment Foot Tapping Test Minimal Impairment Drawing a [place] w/Foot Test Minimal Impairment Muscle Tone Tone Assessment Left Upper Extremity Muscle Tone Comments Tendency for L elbow flex, wrist flex, and finger flex, supination with exertion Posturally thumb and MPJ hyperextension Left Lower Extremity Flexor Tone Description Normal Extensor Tone Description Mild Hypertonicity Muscle Tone Comments tendency for knee ext, plantarflexion and ankle inversion PT-OP-K Range of Motion Start: 08/08/24 15:49 Freq: Status: Active Protocol: Document 08/09/24 10:44 NM (Rec: 08/09/24 12:18 NM [id number]) Ankle and Foot Goniometric Range of Motion Ankle and Foot Left Dorsiflexion with Knee Flexed 10 Dorsiflexion with Knee Extended 8 Plantarflexion 40 Comments demos tendency for inversion PT-OP-M Strength Start: 08/08/24 15:49 Freq: Status: Active Protocol: Document 08/29/24 09:48 NM (Rec: 08/29/24 10:43 NM [id number]) Hip Strength Hip Manual Muscle Testing Right Flexion (L2) 4+ Good+ Extension (S1) 4 Good Abduction 4 Good Adduction 4+ Good+ External Rotation 4+ Good+ Internal Rotation 4+ Good+ Left Flexion (L2) 4- Good- Extension (S1) 4- Good- Abduction 4- Good- Adduction 4 Good External Rotation 4- Good- Internal Rotation 4 Good Knee Strength Knee Manual Muscle Testing Right Flexion (S2) 4+ Good+ Extension (L3) 4+ Good+ Left Flexion (S2) 4- Good- Extension (L3) 4- Good- Comments IE: audible crepitus PT-OP-T Assessment and Plan Start: 08/08/24 15:49 Freq: Status: Active Protocol: Document 11/08/24 09:38 DCW (Rec: 11/08/24 09:39 DCW [id number]) Physical Therapy Assessment Assessment Summary Assessment Pt was out of town due to a vacation, but over that time, her POC and she changes providers. Pt plans to return to PT with a new referral, with discharge at this time, and perform a new evaluation in the future. Physical Therapy Plan Discharge Physical Therapy Discharge Reasons No Longer Attending PT Next Visit Focus/Plan Next Note Type Discharge Summary
== END 2024-11-09 08:48 | disposition home or self-care (01) ==
LOC: PHYS 13:45
PROVIDERS: Family Provider Family Medicine; PCP Family Medicine; Referring Provider Psychiatry & Neurology Neurology; Visit Provider Psychiatry & Neurology Neurology
DX: I69.354 Hemiplegia and hemiparesis following cerebral infarction affecting left non-dominant side (principal); R53.1 Weakness; R27.8 Other lack of coordination; R26.89 Other abnormalities of gait and mobility; R26.9 Unspecified abnormalities of gait and mobility
CPT/HCPCS: 97032; 97110; 97112; 97116; 97140; 97162; 97530

== ENCOUNTER → 2024-11-16 14:16 | Outpatient (CLI) | payer MEDICARE, OTHER, SELFPAY ==
--- NOTE | 2024-11-16 14:18 | DI.US.S_ITS ---
PROCEDURE: US PELVIC COMPLETE INDICATIONS: hx of simple ovarian cyst seen in 08/11 TECHNIQUE: Real-time scanning was performed of the pelvic organs, with image documentation. Additional endovaginal scanning was necessary due to incomplete visualization of the adnexal and endometrial structures by transabdominal scanning. COMPARISON: [facility], US, US PELVIC COMPLETE, 08/11/2023, 14:59. FINDINGS: Uterus: Uterus is absent. Ovaries: The right ovary is not visualized. The left ovary measures 3.6 x 2.5 x 3.2 cm, with a calculated ovarian volume of 15.4 cc. Complex appearance 3.4 x 2.5 x 2.9 cm echogenic focus within the left ovary. Areas of complex echogenicity do not demonstrate increased vascularity. Other: No pathologic free abdominal or pelvic fluid. IMPRESSION: Complex appearing cystic structure in the left ovary overall nonspecific. Given postmenopausal status, further evaluation to exclude cystic malignancy is recommended. 2 month ultrasound follow-up versus MRI with gynecologic protocol is recommended. We strive to produce accurate, complete, and clear reports of imaging services. To assist us in improving patient care, this report was composed using standard report templates and voice recognition software. Therefore, it may contain abnormal punctuation, insertions and/or omissions. Occasional wrong-word or sound-alike substitutions may occur. Though we review the report and make efforts to correct it, we do recommend that the report be read carefully in proper context to recognize any text inaccuracies. Dictated by: Wandy Perry M.D. on 11/18/2024 at 10:02 Approved by: Wandy Perry M.D. on 11/18/2024 at 10:07
== END ==
PROVIDERS: Family Provider Family Medicine; PCP Family Medicine; Referring Provider Family Medicine; Visit Provider Student in an Organized Health Care Education/Training Program
DX: N83.202 Unspecified ovarian cyst, left side (principal); Z87.42 Personal history of other diseases of the female genital tract
CPT/HCPCS: 76830; 76856

== ENCOUNTER 2024-11-18 10:14 | Emergency (ER) | payer MEDICARE, OTHER, SELFPAY ==
[2024-11-18] VITALS (14 sets, daily range): BP systolic 113–166; BP diastolic 59–87; PULSE 81–100; RESP 16–22; TEMP 36.5–36.6; O2SAT 98–100; BMI 19.5
--- NOTE | 2024-11-18 10:34 | EKG_ITS ---
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
[2024-11-18 11:03] LABS: Add Manual Diff / Slide Review NO; Basophils Absolute Auto 0 /uL (0-100); Basophils Percent Auto 0.2 % (0-2); Eosinophils Absolute Auto 100 /uL (0-450); Eosinophils Percent Auto 0.6 % (2-4); Hematocrit 37.8 % (36-46); Hemoglobin 12.9 g/dL (12.0-16.0); Lymphocytes Absolute Auto 2000 /uL (1100-4500); Mean Corpuscular Hemoglobin 30.1 PG (26-34); Mean Corpuscular Volume 88.6 fL (80-100); Monocytes Absolute Auto 400 /uL (0-900); Monocytes Percent Auto 4.2 % (3-14); Neutrophils Absolute Auto 6600 /uL (1500-7000); Platelet Count 237 X10^3/uL (150-400); Red Blood Cell Count 4.26 X10^6/uL (4.0-5.2); Red Cell Distribution Width 13.1 % (11.6-14.8); White Blood Cell Count 9.1 X10^3/uL (4.5-11.0)
[2024-11-18 11:11] LABS: Alanine Aminotransferase 26 IU/L (<35); Albumin 4.9 g/dL (3.5-5.0); Albumin Globulin Ratio 1.5 (1.0-2.8); Alkaline Phosphatase 93 U/L (38-126); Aspartate Aminotransferase 33 IU/L (14-36); BUN Creatinine Ratio 23.3 (6-22); Bilirubin Total 0.6 mg/dL (0.2-1.3); Blood Urea Nitrogen 14 mg/dL (7-17); Calcium 9.6 mg/dL (8.4-10.2); Carbon Dioxide 25 mmol/L (22-32); Chloride 102 mmol/L (98-107); Estimated Glomerular Filt Rate > 60 mL/min (>60); Globulin 3.2 g/dL (1.7-4.1); Glucose 126 mg/dL (70-99); HEMOLYSIS < 15 (0-50); Lipase 43 U/L (23-300); Potassium 3.9 mmol/L (3.4-5.1); Sodium 139 mmol/L (137-145); Total Protein 8.1 g/dL (6.3-8.2)
--- NOTE | 2024-11-18 11:24 | ED.ABDPAIN ---
HPI - Abdominal Pain General Chief Complaint: Abdominal Pain Stated Complaint: acute abd pain sent by [facility] Time Seen by Provider: 11/18/24 11:24 Source: patient and family Mode of arrival: Wheelchair Limitations: no limitations History of Present Illness HPI narrative: 58-year-old female history of left-sided stroke and prior cholecystectomy known left ovarian mass who presents with complaint of right upper quadrant pain little bit into the flank that started last night and gradually worsened overnight and into today. Patient states it was worse with movement. She thought initially she had pulled a muscle at physical therapy but has continued to worsen. Denies any fevers or chills. She has had some mild nausea no vomiting. She denies any changes to bowel movements no black or bloody stools no diarrhea or constipation. Denies any dysuria or frequency but notes it feels like it is a little bit harder to empty her bladder. Patient denies any rash or skin changes. She denies any trauma or injuries. Patient has a history of prior stroke that occurred while hospitalized for cholecystectomy. She was also had a prior hysterectomy. Patient does have left ovarian cyst which they are monitoring through gynecology she had ultrasound imaging on the 1st of this month. Patient is on aspirin, atorvastatin, vitamin-D and iron. Reports an allergy to Septra develops rash. No tobacco, no regular alcohol, no recreational drugs. Dr. Lemus is her primary care physician. She has not had anything for pain today. She initially went to the walk-in clinic and was referred here. Related Data Previous Rx's Medication Instructions Recorded aspirin 81 mg chewable tablet 81 mg PO DAILY 90 days #90 tabs 06/17/23 atorvastatin 40 mg tablet 40 mg PO DAILY #90 tabs 06/07/24 estradiol 0.01% (0.1 mg/gram) 1 g vaginal 3XW #42.5 grams 10/13/24 vaginal cream Disabled Parking See Rx Instructions .Route 10/19/24 .COMPLEX #365 days sodium,potassium,mag sulfates 17.5 See Rx Instructions PO .COMPLEX 10/23/24 gram-3.13 gram-1.6 gram oral soln #354 mL (Suprep Bowel Prep Kit) Allergies Allergy/AdvReac Type Severity Reaction Status Date / Time sulfamethoxazole Allergy Severe Rash Verified 10/13/24 10:57 [From Septra] trimethoprim [From Septra] Allergy Severe Rash Verified 10/13/24 10:57 Review of Systems Review of Systems ROS Unobtainable: All systems reviewed & are unremarkable except as noted in HPI and below Patient History Medical History Atrophic vaginitis Urinary, incontinence, stress female Ovarian cyst, bilateral History of colonic polyps Surgical History History of hysterectomy History of cholecystectomy Family History Father Cancer Stroke Social History alcohol intake: never substance use type: does not use Exam Narrative Exam Narrative: GENERAL: Alert and oriented x three, thin, well-appearing female in mild distress HEENT: Head normocephalic, atraumatic, EOMI, pupils reactive, face symmetric, moist mucous membranes NECK: Supple, full range of motion CARDIOVASCULAR: Regular rate and rhythm without murmurs, rubs or gallops. RESPIRATORY: Breath sounds equal bilaterally, no wheezes rales or rhonchi. ABDOMEN: Soft, nontender. Normoactive bowel sounds all 4 quadrants. No guarding or rebound, rigidity, no mass, no rash or skin changes : No CVA tenderness bilaterally EXTREMITIES: Normal range of motion, no clubbing or edema. Neurovascularly intact NEUROLOGICAL: Cranial nerves II through XII grossly intact. Moving all extremities SKIN: Warm, dry, no petechiae, no rashes or lesions. Initial Vital Signs Initial Vital Signs: Vital Signs Temperature 97.7 F 11/18/24 10:19 Pulse Rate 100 H 11/18/24 10:19 Respiratory Rate 16 11/18/24 10:19 Blood Pressure 166/76 H 11/18/24 10:19 Pulse Oximetry 99 11/18/24 10:19 Oxygen Delivery Method Room Air 11/18/24 10:19 Course Orders Ordered: ED Orders 11/18/24 10:25 Complete Blood Count AUTO DIFF Stat Comprehensive Metabolic Panel Stat Lipase Stat 11/18/24 10:34 EKG-12 Lead Stat 11/18/24 11:30 Urine Microscopic Stat 11/18/24 11:44 CT abdomen pelvis w con Stat 11/18/24 12:49 US abdomen limited Stat Discontinued Medications Acetaminophen (Acetaminophen 325 Mg Tablet) 975 mg PO NOW ONE Stop: 11/18/24 11:45 Last Admin: 11/18/24 11:55 Dose: 975 mg Documented By: LISA Ondansetron HCl (Ondansetron 4 Mg/2 Ml Inj) 4 mg IV NOW PRN PRN Reason: Nausea And Vomiting Ondansetron HCl (Ondansetron 4 Mg Odt) 4 mg PO NOW PRN PRN Reason: Nausea And Vomiting Vital Signs Vital signs: Vital Signs - 8 hr 11/18/24 10:19 11/18/24 10:30 11/18/24 10:45 Temperature 97.7 F Pulse Rate 100 H 92 H 91 H Respiratory Rate 16 20 17 Blood Pressure 166/76 H 115/77 Pulse Oximetry 99 100 100 Oxygen Delivery Method Room Air Room Air Room Air 11/18/24 11:00 11/18/24 11:15 11/18/24 11:30 Temperature Pulse Rate 86 93 H 96 H Respiratory Rate 19 19 Blood Pressure 120/63 Pulse Oximetry 98 99 100 Oxygen Delivery Method Room Air Room Air 11/18/24 12:00 11/18/24 12:30 11/18/24 12:47 Temperature Pulse Rate 99 H 86 86 Respiratory Rate 21 22 Blood Pressure Pulse Oximetry 99 99 100 Oxygen Delivery Method 11/18/24 12:47 11/18/24 13:00 11/18/24 13:00 Temperature Pulse Rate 86 Respiratory Rate 17 Blood Pressure 126/59 L 124/87 Pulse Oximetry 99 Oxygen Delivery Method 11/18/24 13:30 11/18/24 13:30 11/18/24 14:00 Temperature Pulse Rate 88 85 Respiratory Rate 18 20 Blood Pressure 122/74 Pulse Oximetry 98 98 Oxygen Delivery Method 11/18/24 14:00 11/18/24 14:30 11/18/24 14:30 Temperature Pulse Rate 81 Respiratory Rate 18 Blood Pressure 113/77 120/62 Pulse Oximetry 100 Oxygen Delivery Method 11/18/24 15:12 Temperature 98 F Pulse Rate Respiratory Rate Blood Pressure Pulse Oximetry Oxygen Delivery Method MDM - Abdominal Pain Lab Data 11/18/24 10:25 11/18/24 10:25 Labs: Lab Results 11/18/24 11/18/24 Range/Units 10:25 11:30 WBC 9.1 (4.5-11.0) X10^3/uL RBC 4.26 (4.0-5.2) X10^6/uL Hgb 12.9 (12.0-16.0) g/dL Hct 37.8 (36-46) % MCV 88.6 (80-100) fL MCH 30.1 (26-34) PG MCHC 34.0 (30-36) % RDW 13.1 (11.6-14.8) % Plt Count 237 (150-400) X10^3/uL Neut % (Auto) 73.0 (50-75) % Lymph % (Auto) 22.0 L (25-40) % [place] % (Auto) 4.2 (3-14) % Eos % (Auto) 0.6 L (2-4) % Baso % (Auto) 0.2 (0-2) % Neut # (Auto) 6600 (9333-0964) /uL Lymph # (Auto) 2000 (4156-9257) /uL [place] # (Auto) 400 (0-900) /uL Eos # (Auto) 100 (0-450) /uL Baso # (Auto) 0 (0-100) /uL Sodium 139 (137-145) mmol/L Potassium 3.9 (3.4-5.1) mmol/L Chloride 102 (98-107) mmol/L Carbon Dioxide 25 (22-32) mmol/L BUN 14 (7-17) mg/dL Creatinine 0.60 (0.52-1.04) mg/dL Estimated GFR > 60 (>60) mL/min BUN/Creatinine Ratio 23.3 H (6-22) Glucose 126 H (70-99) mg/dL Calcium 9.6 (8.4-10.2) mg/dL Total Bilirubin 0.6 (0.2-1.3) mg/dL AST 33 (14-36) IU/L ALT 26 (<35) IU/L Alkaline Phosphatase 93 (38-126) U/L Total Protein 8.1 (6.3-8.2) g/dL Albumin 4.9 (3.5-5.0) g/dL Globulin 3.2 (1.7-4.1) g/dL Albumin/Globulin Ratio 1.5 (1.0-2.8) Lipase 43 (23-300) U/L Urine RBC None seen (0-5/HPF) Urine WBC 1-5/hpf (0-5/HPF) Ur Squamous Epith Cells 0-1 /hpf (0-5/HPF) Urine Bacteria None seen (None) Ur Culture Indicated? Cult not indicated Vol Urine Centrifuged 10ml (spun) Point of care testing: Urine Dip Bedside Urine Glucose Negative Bedside Urine Bilirubin - Negative Bedside Urine Ketone - Negative Urine Specific [place] 1.010 Bedside Urine Occult Blood + Bedside Urine pH 6.5 Bedside Urine Protein - Negative Bedside Urine Urobilinogen - Negative Bedside Urine Nitrite - Negative Bedside Urine Leukocytes ++ 125 Esterase ECG Data Attestation: I personally reviewed and interpreted this ECG as follows: Interpretation: Sinus rhythm rate of 92 MS 142 QRS is 74 QTC of [address] elevation depression. MDM Narrative Medical decision making narrative: Labs show normal white count, hemoglobin and platelets, chemistries show normal electrolytes BUN creatinine, glucose is 126 calcium is 9.6 bilirubin, AST ALT alk-phos and lipase are normal. Point of care urine shows blood, leukocyte esterase. Urine micro shows no RBCs 1-5 WBCs 1 squamous, no bacteria. EKG shows sinus rhythm CT abdomen pelvis was obtained as patient has had prior cholecystectomy does not have reproducible pain on exam but appears uncomfortable. Common biliary duct measures 1.4 cm dilated more than expected for patient's age recommend right upper quadrant ultrasound left adnexal cyst measures 3 cm consider ultrasound evaluation scattered colonic diverticula without evidence of diverticulitis. Patient was have few hepatic cysts. Abdominal ultrasound shows prominence of common bile duct without visualized obstruction suspected to be related to post cholecystectomy sequela was 10.4 mm in the midportion and 9.3 mm of the pancreatic head no stool or other intraluminal mass identified. Patient had Tylenol she was feeling improved. Reviewed findings with the patient she was comfortable with follow up outpatient. She has been falling for the cyst on her left adnexa just recently had follow up imaging on the . States pain has improved. Discussed return precautions all questions answered. Discharge Plan Departure Patient Disposition: Home Clinical Impression: Right sided abdominal pain Instructions: DI for Abdominal Pain-Adult Activity Restrictions/Additional Instructions: Follow up with your physician if symptoms are persisting you may need further workup if your symptoms are persisting. Your imaging today initially showed that your common bile duct maybe enlarged but on ultrasound imaging appears appropriately sized being post cholecystectomy. You do continued to have the left adnexal changes which you are following with your wellness spa manager Dr. Hyatt You can take acetaminophen up to a 1000 mg every 6 hours as needed for pain. Return for fevers, new or worsening abdominal back or flank pain, persistent vomiting, black or bloody stools, lightheadedness or passing out or other new or concerning changes. Prescriptions: No Action aspirin 81 mg tablet,chewable 81 mg PO DAILY 90 Days Qty: 90 3RF Disabled Parking See Rx Instructions .ROUTE .COMPLEX Qty: 365 0RF Rx Instructions: I find this patient to be medically disabled and qualified for Disabled Parking as indicated and signed on the accompanying Disabled Parking Application for Individuals atorvastatin 40 mg tablet 40 mg PO DAILY Qty: 90 3RF sodium,potassium,mag sulfates [Suprep Bowel Prep Kit] 17.5-3.13-1.6 gram recon soln See Rx Instructions PO .COMPLEX Qty: 354 0RF Rx Instructions: Take as directed by Physician estradiol 0.01 % (0.1 mg/gram) cream 1 g vaginal 3XW Qty: 42.5 3RF Referrals: Kedar Lemus MD [Primary Care Provider] - Stand Alone Forms: Patient Portal/API/Survey
--- NOTE | 2024-11-18 11:44 | DI.CT.S_ITS ---
PROCEDURE: CT ABDOMEN PELVIS W CON INDICATIONS: RUQ/flank pain, hx cholecystectomy TECHNIQUE: After the administration of intravenous contrast, axial sections acquired from the lung bases to the pubic symphysis. Coronal and sagittal reformats were performed. For radiation dose reduction, the following was used: automated exposure control, adjustment of mA and/or kV according to patient size. COMPARISON: None. FINDINGS: Image quality: Diagnostic. Lower Chest: No significant findings. ABDOMEN: Liver: No solid mass. A few hepatic cysts. Gallbladder: The gallbladder surgically absent. Biliary ducts: Common hepatic duct measures 1.4 cm, dilated. There is gradual tapering. Pancreas: No ductal dilation. Spleen: Size is within normal limits. Adrenal Glands: No adrenal nodules. Kidneys and Ureters: No hydronephrosis. No solid mass. No complex renal cystic lesion which requires follow up. Stomach and Bowel: Normal colonic caliber, without significant wall thickening. A few scattered colonic diverticula. Normal appendix. Peritoneum: No abnormal intraperitoneal fluid. No free air. Ventral Wall: No significant ventral hernia. Abdominal Nodes: No retroperitoneal or mesenteric adenopathy by size criteria. Vessels: Aorta and inferior vena cava are normal in size. PELVIS: Pelvic Organs: Left adnexal cyst measuring 3 cm. Bladder: No bladder wall thickening, accounting for underdistention. Pelvic Nodes: No enlarged lymph nodes. Miscellaneous: No inguinal hernias are seen. Bones: No aggressive osseous abnormality. IMPRESSION: 1. Common biliary duct measures 1.4 cm, dilated more than expected for patient age. Recommend right upper quadrant ultrasound. 2. Left adnexal cyst measuring 3 cm, consider ultrasound evaluation. 3. Scattered colonic diverticula without evidence of acute diverticulitis. Dictated by: Eben Sandoval M.D. on 11/18/2024 at 11:07 Approved by: Eben Sandoval M.D. on 11/18/2024 at 11:14
[2024-11-18 11:51] LABS: Bacteria Urine None Seen; Culture Indicated Urine Cult Not Indicated; RBC Urine None Seen (0-5/HPF); Squamous Epithelial Cell Urine 0-1 /HPF (0-5/HPF); Urine Volume 10mL (spun); WBC Urine 1-5/HPF (0-5/HPF)
[2024-11-18] MEDS: ACETAMINOPHEN 325 MG TABLET 975 MG PO (11:55)
--- NOTE | 2024-11-18 12:49 | DI.US.S_ITS ---
PROCEDURE: US ABDOMEN LIMITED INDICATIONS: CBD dilated, hx cholecystectomy TECHNIQUE: Real-time scanning was performed of the abdominal and retroperitoneal organs, with image documentation. COMPARISON: [facility], CT, CT ABDOMEN PELVIS W CON, 11/18/2024, 11:54. FINDINGS: Liver: Liver is normal in size. Foci of increased echogenicity are present the largest measuring 1.1 x 1.4 x 1.2 cm suggestive of hemangioma. Gallbladder: Absent.. Biliary ducts: Intrahepatic bile ducts are non-dilated. Extrahepatic bile duct caliber measures 3.9 mm distally, 10.4 mm in the midportion and 9.3 mm at the pancreatic head. No stone or other intraluminal mass is identified. Normal is 6-7 mm or less in diameter, or 10 mm or less post-cholecystectomy. Pancreas: Visualized portions of the pancreas are sonographically normal. Miscellaneous: No free abdominal fluid. IMPRESSION: Prominence of the common bile duct without visualized obstruction. This is suspected to be related to post cholecystectomy sequela. Dictated by: Wandy Perry M.D. on 11/18/2024 at 14:13 Approved by: Wandy Perry M.D. on 11/18/2024 at 14:15
== END 2024-11-18 15:15 | disposition home or self-care (01) ==
PROVIDERS: Emergency Provider Emergency Medicine; Family Provider Family Medicine; PCP Family Medicine
DX: R10.11 Right upper quadrant pain (principal); R11.0 Nausea
CPT/HCPCS: 74177; 76705; 80053; 81003; 81015; 83690; 85025; 93005; 99283; 99284; Q9967

== ENCOUNTER → 2024-11-24 14:31 | Outpatient (CLI) | payer MEDICARE, OTHER, SELFPAY ==
[2024-11-24 17:05] LABS: Cancer Antigen 125 < 5.5 U/mL (0-35)
== END ==
PROVIDERS: Family Provider Family Medicine; PCP Family Medicine; Referring Provider Student in an Organized Health Care Education/Training Program; Visit Provider Student in an Organized Health Care Education/Training Program
DX: R10.9 Unspecified abdominal pain (principal); N83.201 Unspecified ovarian cyst, right side; N83.202 Unspecified ovarian cyst, left side
CPT/HCPCS: 36415; 86304; 86305

== ENCOUNTER → 2024-12-01 09:07 | Outpatient (CLI) | payer MEDICARE, OTHER, SELFPAY ==
--- NOTE | 2024-12-01 09:08 | DI.MRI.S_ITS ---
PROCEDURE: MR PELVIS WO/W CON INDICATIONS: further Evaluation of ovarian cyst TECHNIQUE: Coronal HASTE, sagittal breath-hold T2 FSE; axial T1 FSE with and without fat saturation through the pelvis. Optional long- and short-axis uterine nonbreath-hold T2 FSE through the uterus. Sagittal or axial dynamic VIBE during administration of contrast. Post-contrast axial or coronal VIBE/2-D FLASH with fat saturation from the iliac crests to the symphysis. Optional diffusion weighted imaging and ADC may be performed. COMPARISON: [facility], CT, CT ABDOMEN PELVIS W CON, 11/18/2024, 11:54. FINDINGS: Image quality: Excellent. Uterus: Status post hysterectomy. Adnexa: Normal appearance of the right ovary. There is again seen a left adnexal cystic lesion measuring 3.2 x 2.75 cm. This has a thin internal septation inferiorly as well as a apparent 7 mm posterior mural nodule with low T2 and increased T1 signal on the unenhanced images. No definite enhancement. Urinary system: Bladder wall is normal in thickness. Distal ureters are non distended. Urethra appears normal in morphology. Nodes and vessels: No pelvic or inguinal adenopathy by size criteria. Iliac vessels are normal in size. Bowel and peritoneum: No pathologic free pelvic fluid. Inferior colon and small bowel loops are normal in caliber. Soft tissues: No inguinal hernias. No findings of pelvic floor incompetence in the absence of provocation. Bones: Marrow demonstrates normal overall signal. IMPRESSION: 1. Minimally complex left adnexal cystic lesion measuring up to 3.2 cm, with a probable 7 mm hemorrhagic mural nodule. This is most likely benign, can be reassessed with follow-up MRI in 6 months for stability. 2. No adenopathy or other suspicious focal lesion seen. Dictated by: Ankit Lemos M.D. on 12/02/2024 at 13:40 Approved by: Ankit Lemos M.D. on 12/02/2024 at 13:51
== END ==
LOC: MRI 09:07
PROVIDERS: Family Provider Family Medicine; PCP Family Medicine; Referring Provider Student in an Organized Health Care Education/Training Program; Visit Provider Student in an Organized Health Care Education/Training Program
DX: R93.5 Abnormal findings on diagnostic imaging of other abdominal regions, including retroperitoneum (principal); N83.201 Unspecified ovarian cyst, right side; N83.202 Unspecified ovarian cyst, left side; Z90.710 Acquired absence of both cervix and uterus
CPT/HCPCS: 72197; A9579

== ENCOUNTER → 2024-12-05 14:11 | Outpatient (CLI) | payer MEDICARE, OTHER, SELFPAY ==
--- NOTE | 2024-12-05 14:15 | DI.MG.S_ITS ---
MM screening mammo BI: 12/05/2024. BI-RADS: 1 CLINICAL: 64-year old female for bilateral screening mammogram. Tyrer-Cuzick lifetime risk of 6.9%. No personal or first-degree family history of breast cancer. Current reported family history of breast cancer: paternal aunt and second paternal aunt. PRIOR EXAMS 11/17/2023. MAMMOGRAPHY TECHNIQUE: 2D and 3D (tomosynthesis) digital mammographic views obtained, with additional images as needed for full coverage. Current study was also evaluated with a Computer Aided Detection (CAD) system. DENSITY C. The breasts are heterogeneously dense, which may obscure small masses. MAMMOGRAPHY FINDINGS Bilateral: No suspicious mass, asymmetry, microcalcification, or other abnormality seen. IMPRESSION: * No evidence of malignancy. RECOMMENDATIONS Bilateral * Annual screening mammography. OVERALL ASSESSMENT CATEGORY BI-RADS-1: Negative. [employer] recommends annual screening mammography beginning at age 40 for women with average risk of breast cancer. ELECTRONICALLY SIGNED: Maxx Osorio M.D. on 12/06/2024 at 10:58:46 AM PT Interpreting Station ID: [id number]
== END ==
PROVIDERS: Family Provider Family Medicine; PCP Family Medicine; Referring Provider Student in an Organized Health Care Education/Training Program; Visit Provider Student in an Organized Health Care Education/Training Program
DX: Z12.31 Encounter for screening mammogram for malignant neoplasm of breast (principal); Z80.3 Family history of malignant neoplasm of breast
CPT/HCPCS: 77063; 77067

== ENCOUNTER 2025-01-24 11:51 | Day surgery (SDC) | payer MEDICARE, OTHER, SELFPAY ==
--- NOTE | 2025-01-24 | PATH_ITS ---
[facility] Accession Number: [id number] No. of containers..01 Tissue . 01 Material submitted: . gastrointestinal site - STOMACH . 01 Clinical history: . R/O H.PYLORI . 01 Diagnosis: STOMACH, BIOPSY: Gastric body mucosa with no diagnostic abnormality. No evidence of Helicobacter organisms on H/E stain. Negative for intestinal metaplasia. Negative for dysplasia or malignancy. [facility] 02/05/2025 1159 Local . 01 Electronically signed: . Mustapha Chun MD, PhD, Pathologist NPI- [id number] . 01 Gross description: . Received in formalin with two identifiers and pyloric stomach, is a single guzman soft tissue fragment, 0.2 cm in greatest dimension, submitted in A1. ([id number]) /MRV 02/02/2025 1737 Local . 01 Pathologist provided ICD-10: R10.13, K21.9 . 01 CPT . 017592 Specimen Comment: A courtesy copy of this report has been sent to [phone] Performed at: [address] [address], [place], [place] [id number] MD Jasiel Caraballo MD Phone: [phone]
--- NOTE | 2025-01-24 12:11 | P.HP_ITS ---
History of Present Illness History of Present Illness Date Patient Seen: 01/24/25 Chief complaint: SDC Narrative: History of colon polyps need for follow-up colonoscopy and history of heartburn now recurrent and severe need for EGD [facility] Medical History Atrophic vaginitis Urinary, incontinence, stress female Ovarian cyst, bilateral History of colonic polyps Surgical History History of hysterectomy History of cholecystectomy Family History Father Cancer Stroke Social History Smoking Status: Never smoker alcohol intake: never substance use type: does not use Meds Home Medications and Allergies Home Medications ?Medication ?Instructions ?Recorded ?Confirmed ?Type aspirin 81 mg chewable tablet 81 mg PO DAILY 90 days # 90 tabs 06/17/23 10/13/24 Rx atorvastatin 40 mg tablet 40 mg PO DAILY #90 tabs 05/2010/13/24 Rx estradiol 0.01% (0.1 mg/gram) 1 g vaginal 3XW #42.5 gr ams 10/13/24 10/13/24 Rx vaginal cream Disabled Parking See Rx Instructions .Route 0 10/19/24 10/19/24 Rx .COMPLEX #365 days sodium,potassium,mag sulfates 17.5 See Rx Instructions PO .COMPLEX 12/14/24 Rx gram-3.13 gram-1.6 gram oral soln #354 mL (Suprep Bowel Prep Kit) Allergies Allergy/AdvReac Type Severity Reaction Status Date / Time sulfamethoxazole (From Allergy Severe Rash Verified 01/24/25 12:11 ) trimethoprim (From ) Allergy Severe Rash Verified 01/24/25 12:11 Exam Narrative Exam Narrative: Oropharynx free of lesions Chest clear to auscultation percussion Cardiac exam reveals no S3 or murmur Assessment & Plan Assessment & Plan narrative: EGD and colonoscopy to be performed for history of colon polyps and recurrent GE reflux. Risks, benefits, alternatives have been explained. Time-Based Coding :: [TOTAL MINUTES] spent with patient and on the chart (including review of chart, obtaining history, exam, reviewing outside data, placing orders, documenting exam and treatment plan, and counseling patient) on [DATE]. PROFEE Guest Relations Officer Document charge(s): No
--- NOTE | 2025-01-24 12:12 | PM.OP.EC ---
Operative Date/Time/Diagnoses Date of procedure: 01/24/25 Time of procedure: 13:05 Pre-op diagnosis: See indication and findings Post-op diagnosis: same Procedure & Clinicians Study performed: EGD and colonoscopy Same procedure(s) as scheduled: Yes Indications: Recurrent GE reflux and history of colon polyps Surgeon: Jeni Escobar Anesthesia Type: Other Procedure Notes Procedure in detail: After informed consent was obtained the patient was placed in left lateral decubitus position. The video upper scope was placed into the oropharynx and with the patient's help swallowed into the esophagus. The esophagus stomach and duodenal were carefully examined. On withdrawal, retroflexed view the GE junction was performed. The scope was removed. The patient tolerated the procedure well. The patient was then turned and the colonoscope substituted. This was passed into the rectum slowly advanced cecum. Preparation was good. On slow withdrawal mucosa was carefully examined. The scope was removed. The patient tolerated procedure well. Blood loss none Complications none Sedation mac Findings EGD 1. Normal esophagus including normal squamocolumnar junction 2. Patchy erythema in the stomach biopsies taken to rule out Helicobacter 3. Normal duodenal bulb sweep Colonoscopy 1. Normal colonoscopy to cecum Patient should have follow-up colonoscopy in 5-10 years. Of note is with her reflux there is no significant esophagitis. Medication should be used to treat symptoms and not worry about any findings.
[2025-01-24 12:14] VITALS: BP 154/88; PULSE 108; RESP 18; TEMP 36.4; O2SAT 100
[2025-01-24] MEDS: LACTATED RINGERS 1,000 ML 42 ML IV (12:28)
[2025-01-24 13:07] VITALS: BP 149/76; PULSE 101; RESP 19; TEMP 36.4; O2SAT 100
[2025-01-24 13:10] VITALS: BP 142/73; PULSE 105; RESP 26; TEMP 36.4; O2SAT 100
[2025-01-24 13:15] VITALS: BP 125/63; PULSE 106; RESP 34; O2SAT 100
[2025-01-24 13:20] VITALS: BP 125/64; PULSE 98; RESP 30; O2SAT 100
[2025-01-24 13:55] VITALS: BP 138/82; PULSE 90; RESP 16; TEMP 36.3; O2SAT 99
== END 2025-01-24 14:05 | disposition home or self-care (01) ==
PROVIDERS: Internal Medicine Gastroenterology; PCP Family Medicine; Referring Provider Surgery; Visit Provider Surgery
PROC: 0DJ08ZZ Inspection of Upper Intestinal Tract, Via Natural or Artificial Opening Endoscopic (ICD-10-PCS; CPT 43239; principal; 2025-01-24 13:00)
PROC: 0DJD8ZZ Inspection of Lower Intestinal Tract, Via Natural or Artificial Opening Endoscopic (ICD-10-PCS; CPT 45378; 2025-01-24 13:00)
DX: Z12.11 Encounter for screening for malignant neoplasm of colon (principal); Z86.0100 Personal history of colon polyps, unspecified; K21.9 Gastro-esophageal reflux disease without esophagitis
CPT/HCPCS: 43239; G0105; J2704

== ENCOUNTER 2025-02-05 10:45 | Outpatient (RCR) | payer MEDICARE, OTHER, SELFPAY ==
--- NOTE | 2024-11-15 14:30 | PT.OPPOC ---
Physical, Occupational & Speech Therapy At [facility] Current Diagnoses Unspecified sequelae of cerebral infarction (11/15/24) Unsteadiness on feet (11/15/24) Other abnormalities of gait and mobility (11/15/24) Visit Care Team Role Provider Type Kedar Lemus MD Attending Provider Physician Family Provider Primary Care Provider Referring Provider Specialty: [facility] Address: [address] [place] [address], [address] Email: [email or web address] Plan Of Care PT-OP-B Current Condition Start: 11/15/24 15:46 Freq: Status: Active Protocol: Document 11/15/24 13:45 DCW (Rec: 11/16/24 09:44 DCW [id number]) Current Condition History of Current Condition Onset Date February 2021 Current Complaints gait difficulty s/p CVA History of Current Condition Pt is a 64 year old female presenting to skilled therapy 3.5 years s/p CVA. Pt reports her biggest lingering complaints are that she drags her left foot during gait, and she has a slow gait speed. Admits she doesn't have much problems with balance, has only had two falls since her CVA, none recently. Was being treated at this clinic for this same complaint earlier this year, but due to some scheduling conflicts and a vacation out of state, was not seen for ~1 month, and her POC had . Pt returns with a new referral in order to re-start therapy. Reports her goals are to be able to walk better, and with my arm down (pt exhibits L UE flexion pattern, particularly when focusing on ambulation). Would also like to get back to swimming for exercise. PT-OP-T Assessment and Plan Start: 11/15/24 15:46 Freq: Status: Active Protocol: Document 11/15/24 13:45 DCW (Rec: 11/16/24 12:09 DCW [id number]) Physical Therapy Assessment Rehab Potential Rehabilitation Potential Good Evaluation Complexity Number of Personal Factors/Comorbidities 3 or More Number of Body Systems Impaired 4 or More Clinical Presentation at Evaluation Unstable Impairments Impairments Activity Tolerance,Balance, Functional Activities, Functional Mobility,Gait, Strength Goals Three Impairment Pt presents as a falls risk, per DGI score of 17/24 Skilled Nursing Goal (LTG) Pt to demonstrate a reduction in falls risk by scoring at least 20/24 on the DGI LTG Duration 02/13/25 Two Impairment Left LE weakness impacts gait ability Deportation Examiner Goal (LTG) Pt to improve left hip strength to at least 4/5 and left ankle strength to at least 3/5 in all tested planes in order to improve quality of gait and decrease compensatory strategies. LTG Duration 02/13/25 One Impairment Pt does not have an appropriate home exercise program Short Term Goal (STG) Pt to be independent and compliant with an appropriate HEP STG Duration 12/15/24 Assessment Summary Assessment Pt presents with signs and symptoms consistent with referring diagnosis. Pt exhibits sequelae secondary to CVA from 3.5 years ago, most notably left hip weakness, gait difficulty, and slight increased falls risk. Weakness most noticeable in her left hip and left ankle, which results in a left steppage gait, left foot pronation during stance phase, and knee hyperextension when fatigued. DGI score of 17/24 indicates an increased risk of falls. Pt should benefit from skilled therapeutic intervention focusing on LE strengthening ( specifically ankle and hip), gait training, increased activity tolerance, balance challenges, and quadruped activities. Physical Therapy Plan Frequency and Duration Frequency of Treatment 2x/Week Plan of Care Start Date 11/15/24 Plan of Care End Date 02/13/25 Therapeutic Interventions Therapeutic Interventions Balance Training,Coordination Training,Gait Training,Home Exercise Program,Joint Mobilizations,Manual Therapy, Neuromuscular Re-education, Patient/Caregiver Education, Self-Care/Home Management,Soft Tissue Mobilization,Taping, Therapeutic Activities, Therapeutic Exercises Next Visit Focus/Plan Next Note Type Treatment Note Next Visit Plan Gait training, LE strengthening, Balance challenges Plan of Care Dates Plan of Care Start Date 11/15/24 Plan of Care End Date 02/13/25 Electronically Signed by: Terence Murphy, PT 11/16/24 1820 If you are in agreement with this Plan of Care, please return a signed and dated copy. I have reviewed this Plan of Care and certify that the skilled therapy services above are required to meet the patient?s needs. Physician Signature Date Printed Name and Credentials Clinical Instructor Signature Printed Name and Credentials
--- NOTE | 2024-11-15 14:30 | PT.OIE ---
Current Diagnoses Unspecified sequelae of cerebral infarction (11/15/24) Unsteadiness on feet (11/15/24) Other abnormalities of gait and mobility (11/15/24) Past Medical History (Last Updated 07/26/23 @ 19:54 by Brianne Echeverria PA-C) Atrophic vaginitis History of colonic polyps Ovarian cyst, bilateral Urinary, incontinence, stress female Past Surgical History (Last Updated 05/11/23 @ 22:27 by Kedar Lemus MD) History of cholecystectomy History of hysterectomy Visit Care Team Role Provider Type Kedar Lemus MD Attending Provider Physician Family Provider Primary Care Provider Referring Provider Specialty: [facility] Practice Obstetrics Address: [address] [place] [address], [facility] Email: [email or web address] Physical Therapy Initial Evaluation PT-OP-A Visit Information Start: 11/15/24 15:46 Freq: Status: Active Protocol: Document 11/15/24 13:45 DCW (Rec: 11/15/24 15:56 DCW [id number]) Out-Patient Physical Therapy Visit Information Visit Information Visit Type Initial Evaluation Visit Start Time 13:45 Visit Stop Time 14:30 Visit Number 1 Number of LION [facility]UNTER Visits 0 Evaluation Information Evaluation Date 11/15/24 PT-OP-B Current Condition Start: 11/15/24 15:46 Freq: Status: Active Protocol: Document 11/15/24 13:45 DCW (Rec: 11/16/24 09:44 DCW [id number]) Current Condition History of Current Condition Onset Date February 2021 Current Complaints gait difficulty s/p CVA History of Current Condition Pt is a 64 year old female presenting to skilled therapy 3.5 years s/p CVA. Pt reports her biggest lingering complaints are that she drags her left foot during gait, and she has a slow gait speed. Admits she doesn't have much problems with balance, has only had two falls since her CVA, none recently. Was being treated at this clinic for this same complaint earlier this year, but due to some scheduling conflicts and a vacation out of state, was not seen for ~1 month, and her POC had . Pt returns with a new referral in order to re-start therapy. Reports her goals are to be able to walk better, and with my arm down (pt exhibits L UE flexion pattern, particularly when focusing on ambulation). Would also like to get back to swimming for exercise. PT-OP-C Subjective Start: 11/15/24 15:46 Freq: Status: Active Protocol: Document 11/15/24 13:45 DCW (Rec: 11/15/24 15:56 DCW [id number]) OP-PT Subjective Patient Comments Patient Comments I have to think about lifting my foot and bending my knee with every step when I walk. PT-OP-E Functional Tests Start: 11/15/24 15:46 Freq: Status: Active Protocol: Document 11/15/24 13:45 DCW (Rec: 11/15/24 15:56 DCW [id number]) Functional Tests 30 Second Sit to Stand Test Score x11 repetitions Comments No UE use Dynamic Gait Index (DGI) Score 17/24 DGI Impairment Rating 20 to <40% Impaired (Score 15- 19) Timed Up and Go (TUG) Score 13.11 Comments Three-trial average (13.54, 12 .55, 13.25) PT-OP-G Mobility & Gait Start: 11/15/24 15:46 Freq: Status: Active Protocol: Document 11/15/24 13:45 DCW (Rec: 11/15/24 15:56 DCW [id number]) OP Gait Assessment Comments Gait Comments Pt ambulates with steppage gait pattern on left, as well as left foot pronation during stance phase secondary to weakness of inversion. Stair Climbing Evaluation Evaluation Level of Assist On Stairs Independent Devices Stair Climbing Assistive Devices None Technique/Endurance Stair Climbing Direction Ascend and Descend Stair Climbing Technique Step Over Step Number of Steps Climbed 4 Stair Climbing Set # Repetitions (reps) 2 PT-OP-M Strength Start: 11/15/24 15:46 Freq: Status: Active Protocol: Document 11/15/24 13:45 DCW (Rec: 11/15/24 15:56 DCW [id number]) Hip Strength Hip Manual Muscle Testing Right Flexion (L2) 4+ Good+ Extension (S1) 4+ Good+ Abduction 4+ Good+ Adduction 4+ Good+ External Rotation 4+ Good+ Internal Rotation 4+ Good+ Left Flexion (L2) 4 Good Extension (S1) 4+ Good+ Abduction 4- Good- Adduction 4 Good External Rotation 4- Good- Internal Rotation 4- Good- Knee Strength Knee Manual Muscle Testing Right Flexion (S2) 4+ Good+ Extension (L3) 4+ Good+ Left Flexion (S2) 4+ Good+ Extension (L3) 4+ Good+ Ankle/Foot Strength Ankle and Foot Manual Muscle Testing Right Dorsiflexion (L4) 4+ Good+ Plantarflexion (S1) 4+ Good+ Inversion 4+ Good+ Eversion (S1) 4+ Good+ Left Dorsiflexion (L4) 4+ Good+ Plantarflexion (S1) 3- Fair- Inversion 2 Poor Eversion (S1) 3- Fair- PT-OP-Q Treatments Start: 11/15/24 15:46 Freq: Status: Active Protocol: Document 11/15/24 13:45 DCW (Rec: 11/15/24 15:56 DCW [id number]) Therapeutic Exercises Sitting Exercises Hamstring Curl Sitting Exercise Name Hamstring Curl Side left Resistance Lv 3 Ankle inversion Sitting Exercise Name Ankle Inversion Side left Resistance Lv 3 PT-OP-T Assessment and Plan Start: 11/15/24 15:46 Freq: Status: Active Protocol: Document 11/15/24 13:45 DCW (Rec: 11/16/24 12:09 DCW [id number]) Physical Therapy Assessment Rehab Potential Rehabilitation Potential Good Evaluation Complexity Number of Personal Factors/Comorbidities 3 or More Number of Body Systems Impaired 4 or More Clinical Presentation at Evaluation Unstable Impairments Impairments Activity Tolerance,Balance, Functional Activities, Functional Mobility,Gait, Strength Goals Three Impairment Pt presents as a falls risk, per DGI score of 17/24 Senior Living Goal (LTG) Pt to demonstrate a reduction in falls risk by scoring at least 20/24 on the DGI LTG Duration 02/13/25 Two Impairment Left LE weakness impacts gait ability Truck Jumper Goal (LTG) Pt to improve left hip strength to at least 4/5 and left ankle strength to at least 3/5 in all tested planes in order to improve quality of gait and decrease compensatory strategies. LTG Duration 02/13/25 One Impairment Pt does not have an appropriate home exercise program Short Term Goal (STG) Pt to be independent and compliant with an appropriate HEP STG Duration 12/15/24 Assessment Summary Assessment Pt presents with signs and symptoms consistent with referring diagnosis. Pt exhibits sequelae secondary to CVA from 3.5 years ago, most notably left hip weakness, gait difficulty, and slight increased falls risk. Weakness most noticeable in her left hip and left ankle, which results in a left steppage gait, left foot pronation during stance phase, and knee hyperextension when fatigued. DGI score of 17/24 indicates an increased risk of falls. Pt should benefit from skilled therapeutic intervention focusing on LE strengthening ( specifically ankle and hip), gait training, increased activity tolerance, balance challenges, and quadruped activities. Physical Therapy Plan Frequency and Duration Frequency of Treatment 2x/Week Plan of Care Start Date 11/15/24 Plan of Care End Date 02/13/25 Therapeutic Interventions Therapeutic Interventions Balance Training,Coordination Training,Gait Training,Home Exercise Program,Joint Mobilizations,Manual Therapy, Neuromuscular Re-education, Patient/Caregiver Education, Self-Care/Home Management,Soft Tissue Mobilization,Taping, Therapeutic Activities, Therapeutic Exercises Next Visit Focus/Plan Next Note Type Treatment Note Next Visit Plan Gait training, LE strengthening, Balance challenges
--- NOTE | 2024-11-20 14:27 | PT.OTN ---
Current Diagnoses Unspecified sequelae of cerebral infarction (11/20/24) Unsteadiness on feet (11/20/24) Other abnormalities of gait and mobility (11/20/24) Physical Therapy Treatment Note PT-OP-A Visit Information Start: 11/15/24 15:46 Freq: Status: Active Protocol: Document 11/20/24 13:45 DCW (Rec: 11/20/24 14:27 DCW [id number]) Out-Patient Physical Therapy Visit Information Visit Information Visit Type Treatment Note Visit Start Time 13:45 Visit Stop Time 14:30 Visit Number 2 Number of NUTRITION ASSISTANT Visits 0 Evaluation Information Evaluation Date 11/15/24 PT-OP-B Current Condition Start: 11/15/24 15:46 Freq: Status: Active Protocol: Document 11/15/24 13:45 DCW (Rec: 11/16/24 09:44 DCW [id number]) Current Condition History of Current Condition Onset Date February 2021 Current Complaints gait difficulty s/p CVA History of Current Condition Pt is a 64 year old female presenting to skilled therapy 3.5 years s/p CVA. Pt reports her biggest lingering complaints are that she drags her left foot during gait, and she has a slow gait speed. Admits she doesn't have much problems with balance, has only had two falls since her CVA, none recently. Was being treated at this clinic for this same complaint earlier this year, but due to some scheduling conflicts and a [place] of [place], was not seen for ~1 month, and her POC had . Pt returns with a new referral in order to re-start therapy. Reports her goals are to be able to walk better, and with my arm down (pt exhibits L UE flexion pattern, particularly when focusing on ambulation). Would also like to get back to swimming for exercise. PT-OP-C Subjective Start: 11/15/24 15:46 Freq: Status: Active Protocol: Document 11/20/24 13:45 DCW (Rec: 11/20/24 14:27 DCW [id number]) OP-PT Subjective Patient Comments Patient Comments Pt reports she is feeling good , she did her HEP, no problems . PT-OP-E Functional Tests Start: 11/15/24 15:46 Freq: Status: Active Protocol: Document 11/15/24 13:45 DCW (Rec: 11/15/24 15:56 [facility] [id number]) Functional Tests 30 Second Sit to Stand Test Score x11 repetitions Comments No UE use Dynamic Gait Index (DGI) Score 17/24 DGI Impairment Rating 20 to <40% Impaired (Score 15- 19) Timed Up and Go (TUG) Score 13.11 Comments Three-trial average (13.54, 12 .55, 13.25) PT-OP-G Mobility & Gait Start: 11/15/24 15:46 Freq: Status: Active Protocol: Document 11/15/24 13:45 DCW (Rec: 11/15/24 15:56 [facility] [id number]) OP Gait Assessment Comments Gait Comments Pt ambulates with steppage gait pattern on left, as well as left foot pronation during stance phase secondary to weakness of inversion. Stair Climbing Evaluation Evaluation Level of Assist On Stairs Independent Devices Stair Climbing Assistive Devices None Technique/Endurance Stair Climbing Direction Ascend and Descend Stair Climbing Technique Step Over Step Number of Steps Climbed 4 Stair Climbing Set # Repetitions (reps) 2 PT-OP-M Strength Start: 11/15/24 15:46 Freq: Status: Active Protocol: Document 11/15/24 13:45 DCW (Rec: 11/15/24 15:56 [facility] [id number]) Hip Strength Hip Manual Muscle Testing Right Flexion (L2) 4+ Good+ Extension (S1) 4+ Good+ Abduction 4+ Good+ Adduction 4+ Good+ External Rotation 4+ Good+ Internal Rotation 4+ Good+ Left Flexion (L2) 4 Good Extension (S1) 4+ Good+ Abduction 4- Good- Adduction 4 Good External Rotation 4- Good- Internal Rotation 4- Good- Knee Strength Knee Manual Muscle Testing Right Flexion (S2) 4+ Good+ Extension (L3) 4+ Good+ Left Flexion (S2) 4+ Good+ Extension (L3) 4+ Good+ Ankle/Foot Strength Ankle and Foot Manual Muscle Testing Right Dorsiflexion (L4) 4+ Good+ Plantarflexion (S1) 4+ Good+ Inversion 4+ Good+ Eversion (S1) 4+ Good+ Left Dorsiflexion (L4) 4+ Good+ Plantarflexion (S1) 3- Fair- Inversion 2 Poor Eversion (S1) 3- Fair- PT-OP-Q Treatments Start: 11/15/24 15:46 Freq: Status: Active Protocol: Document 11/20/24 13:45 DCW (Rec: 11/20/24 14:27 DCW [id number]) Gym Equipment Shuttle Balance Red Details WBOS, Staggered Therapeutic Exercises Sitting Exercises Ankle inversion Sitting Exercise Name Ankle Inversion/Eversion/DF Side left Resistance Lv 3 Other Exercises Thread the Needle Other Exercise Name Quadruped - Thread the Needle Side bilateral Quadruped Other Exercise Name Quadruped - Hip extension ( both with full knee extension and 90 deg flexion Side bilateral Neuro Re-Education Treatment Balance Activities Uneven surface Details Ambulation on uneven surfaces Surface Blue pads with objects under Comments With and without hurdles, forward, side-stepping Marching Details Marching on foam Surface Large blue foam Hurdles Details Foam/Hurdles Equipment // bars Comments VCs to keep left arm at side PT-OP-T Assessment and Plan Start: 11/15/24 15:46 Freq: Status: Active Protocol: Document 11/20/24 13:45 DCW (Rec: 11/20/24 14:27 DCW [id number]) Physical Therapy Assessment Impairments Impairments Activity Tolerance,Balance, Functional Activities, Functional Mobility,Gait, Strength Goals Three Impairment Pt presents as a falls risk, per DGI score of 17/24 Information Systems Professor Goal (LTG) Pt to demonstrate a reduction in falls risk by scoring at least 20/24 on the DGI LTG Duration 02/13/25 Two Impairment Left LE weakness impacts gait ability Information Systems Professor Goal (LTG) Pt to improve left hip strength to at least 4/5 and left ankle strength to at least 3/5 in all tested planes in order to improve quality of gait and decrease compensatory strategies. LTG Duration 02/13/25 One Impairment Pt does not have an appropriate home exercise program Short Term Goal (STG) Pt to be independent and compliant with an appropriate HEP STG Duration 12/15/24 Assessment Summary Assessment Great response to treatment today, pt did very well with balance challenges. Had some slight difficulty with left hand in quadruped, but was able to fully participate in all exercises. Continue to focus on balance, gait, and general strengthening. Physical Therapy Plan Frequency and Duration Frequency of Treatment 2x/Week Plan of Care Start Date 11/15/24 Plan of Care End Date 02/13/25 Therapeutic Interventions Therapeutic Interventions Balance Training,Coordination Training,Gait Training,Home Exercise Program,Joint Mobilizations,Manual Therapy, Neuromuscular Re-education, Patient/Caregiver Education, Self-Care/Home Management,Soft Tissue Mobilization,Taping, Therapeutic Activities, Therapeutic Exercises Next Visit Focus/Plan Next Note Type Treatment Note Next Visit Plan Gait training, LE strengthening, Balance challenges
--- NOTE | 2024-11-28 16:53 | PT.OTN ---
Current Diagnoses Unspecified sequelae of cerebral infarction (11/28/24) Unsteadiness on feet (11/28/24) Other abnormalities of gait and mobility (11/28/24) Physical Therapy Treatment Note PT-OP-A Visit Information Start: 11/15/24 15:46 Freq: Status: Active Protocol: Document 11/28/24 11:37 NBM (Rec: 11/28/24 12:38 NBM Laptop) Out-Patient Physical Therapy Visit Information Visit Information Visit Type Treatment Note Visit Start Time 11:37 Visit Stop Time 12:22 Visit Number 3 Number of EXPLOSIVE OPERATOR GRENADE Visits 1 Evaluation Information Evaluation Date 11/15/24 PT-OP-B Current Condition Start: 11/15/24 15:46 Freq: Status: Active Protocol: Document 11/15/24 13:45 DCW (Rec: 11/16/24 09:44 DCW [id number]) Current Condition History of Current Condition Onset Date February 2021 Current Complaints gait difficulty s/p CVA History of Current Condition Pt is a 64 year old female presenting to skilled therapy 3.5 years s/p CVA. Pt reports her biggest lingering complaints are that she drags her left foot during gait, and she has a slow gait speed. Admits she doesn't have much problems with balance, has only had two falls since her CVA, none recently. Was being treated at this clinic for this same complaint earlier this year, but due to some scheduling conflicts and a vacation out of state, was not seen for ~1 month, and her POC had . Pt returns with a new referral in order to re-start therapy. Reports her goals are to be able to walk better, and with my arm down (pt exhibits L UE flexion pattern, particularly when focusing on ambulation). Would also like to get back to swimming for exercise. PT-OP-C Subjective Start: 11/15/24 15:46 Freq: Status: Active Protocol: Document 11/28/24 11:37 NBM (Rec: 11/28/24 12:38 NBM Laptop) OP-PT Subjective Patient Comments Patient Comments Pt reports she picks and chooses from her HEP each week . She stretches every day except the weekends. PT-OP-E Functional Tests Start: 11/15/24 15:46 Freq: Status: Active Protocol: Document 11/15/24 13:45 DCW (Rec: 11/15/24 15:56 [facility] [id number]) Functional Tests 30 Second Sit to Stand Test Score x11 repetitions Comments No UE use Dynamic Gait Index (DGI) Score 17/24 DGI Impairment Rating 20 to <40% Impaired (Score 15- 19) Timed Up and Go (TUG) Score 13.11 Comments Three-trial average (13.54, 12 .55, 13.25) PT-OP-G Mobility & Gait Start: 11/15/24 15:46 Freq: Status: Active Protocol: Document 11/15/24 13:45 DCW (Rec: 11/15/24 15:56 [facility] [id number]) OP Gait Assessment Comments Gait Comments Pt ambulates with steppage gait pattern on left, as well as left foot pronation during stance phase secondary to weakness of inversion. Stair Climbing Evaluation Evaluation Level of Assist On Stairs Independent Devices Stair Climbing Assistive Devices None Technique/Endurance Stair Climbing Direction Ascend and Descend Stair Climbing Technique Step Over Step Number of Steps Climbed 4 Stair Climbing Set # Repetitions (reps) 2 PT-OP-M Strength Start: 11/15/24 15:46 Freq: Status: Active Protocol: Document 11/15/24 13:45 DCW (Rec: 11/15/24 15:56 [facility] [id number]) Hip Strength Hip Manual Muscle Testing Right Flexion (L2) 4+ Good+ Extension (S1) 4+ Good+ Abduction 4+ Good+ Adduction 4+ Good+ External Rotation 4+ Good+ Internal Rotation 4+ Good+ Left Flexion (L2) 4 Good Extension (S1) 4+ Good+ Abduction 4- Good- Adduction 4 Good External Rotation 4- Good- Internal Rotation 4- Good- Knee Strength Knee Manual Muscle Testing Right Flexion (S2) 4+ Good+ Extension (L3) 4+ Good+ Left Flexion (S2) 4+ Good+ Extension (L3) 4+ Good+ Ankle/Foot Strength Ankle and Foot Manual Muscle Testing Right Dorsiflexion (L4) 4+ Good+ Plantarflexion (S1) 4+ Good+ Inversion 4+ Good+ Eversion (S1) 4+ Good+ Left Dorsiflexion (L4) 4+ Good+ Plantarflexion (S1) 3- Fair- Inversion 2 Poor Eversion (S1) 3- Fair- PT-OP-Q Treatments Start: 11/15/24 15:46 Freq: Status: Active Protocol: Document 11/28/24 11:37 NB (Rec: 11/28/24 12:38 [facility] Laptop) Therapeutic Exercises Sitting Exercises Stretch Sitting Exercise Name 1. Great Toe Extension 2. Hamstring Stretch Side left Reps/Minutes 1. 10 x2 SH 2. x30 Ankle inversion Sitting Exercise Name Ankle Inversion/Eversion/DF Side left Resistance Lv 3 with loop at one end. Reps/Minutes x10 ea Standing Exercises Hip extension Standing Exercise Name HEP review Side bilateral Equipment Used handrail Reps/Minutes x10 ea Comments Parts process cueing: DF> weightshift>pull back leg Gait Training Gait Activity Ambulation Description 1. ambulation w/ 3# DB in LUE 2. AAROM of LUE> B UEs w/ dowel Device Used GB CGA Surface firm Comments LLE heel strike with eccentric control of DF and LUE extension and arm swing Breaks as needed to allow for LUE extension Neuro Re-Education Treatment Balance Activities Uneven surface Details Ambulation on uneven surfaces Surface Blue pad with objects under Equipment 3# DB in LUE Comments forward x 10, focus on L heel strike and eccentric control of DF. PT-OP-T Assessment and Plan Start: 11/15/24 15:46 Freq: Status: Active Protocol: Document 11/28/24 11:37 [facility] (Rec: 11/28/24 12:38 [facility] Laptop) Physical Therapy Assessment Goals Three Impairment Pt presents as a falls risk, per DGI score of 17/24 [place] Weigher Goal (LTG) Pt to demonstrate a reduction in falls risk by scoring at least 20/24 on the DGI LTG Duration 02/13/25 Two Impairment Left LE weakness impacts gait ability Mcc Goal (LTG) Pt to improve left hip strength to at least 4/5 and left ankle strength to at least 3/5 in all tested planes in order to improve quality of gait and decrease compensatory strategies. LTG Duration 02/13/25 One Impairment Pt does not have an appropriate home exercise program Short Term Goal (STG) Pt to be independent and compliant with an appropriate HEP STG Duration 12/15/24 Assessment Summary Assessment Treatment focus on LE strengthening with emphasis on eccentric control of L dorsiflexion, HEP review, gait training and balance ambulating on uneven surface. Laurel benefits from parts processing cues for performing standing hip extension and is instructed in seated hamstring stretch which she is encouraged to utilize on weekends, with education for strengthening into improved range and carryover for gait; updated HO provided for great toe extension stretch, standing hip extension, and seated hamstring stretch, and copy of pool ex HO provided again. She demonstrates improved eccentric control of L dorsiflexion with gait on firm surface and on uneven surface. L upper extremity flexion pattern improves slightly following ambulation with AAROM for reciprocal arm swing. Physical Therapy Plan Frequency and Duration Frequency of Treatment 2x/Week Plan of Care Start Date 11/15/24 Plan of Care End Date 02/13/25 Therapeutic Interventions Therapeutic Interventions Balance Training,Coordination Training,Gait Training,Home Exercise Program,Joint Mobilizations,Manual Therapy, Neuromuscular Re-education, Patient/Caregiver Education, Self-Care/Home Management,Soft Tissue Mobilization,Taping, Therapeutic Activities, Therapeutic Exercises Next Visit Focus/Plan Next Note Type Treatment Note Next Visit Plan Gait training, LE strengthening, Balance challenges
--- NOTE | 2024-12-04 11:25 | PT.OTN ---
Current Diagnoses Unspecified sequelae of cerebral infarction (12/04/24) Unsteadiness on feet (12/04/24) Other abnormalities of gait and mobility (12/04/24) Physical Therapy Treatment Note PT-OP-A Visit Information Start: 11/15/24 15:46 Freq: Status: Active Protocol: Document 12/04/24 10:45 PG (Rec: 12/04/24 11:33 PG Laptop) Out-Patient Physical Therapy Visit Information Visit Information Visit Type Treatment Note Visit Note SPTA led tx w permission from pt and direct supervision of Drea CORTES Visit Start Time 10:45 Visit Stop Time 11:25 Visit Number 4 Number of CATERING COOK Visits 2 Evaluation Information Evaluation Date 11/15/24 PT-OP-B Current Condition Start: 11/15/24 15:46 Freq: Status: Active Protocol: Document 11/15/24 13:45 DCW (Rec: 11/16/24 09:44 DCW [id number]) Current Condition History of Current Condition Onset Date February 2021 Current Complaints gait difficulty s/p CVA History of Current Condition Pt is a 64 year old female presenting to skilled therapy 3.5 years s/p CVA. Pt reports her biggest lingering complaints are that she drags her left foot during gait, and she has a slow gait speed. Admits she doesn't have much problems with balance, has only had two falls since her CVA, none recently. Was being treated at this clinic for this same complaint earlier this year, but due to some scheduling conflicts and a vacation out of state, was not seen for ~1 month, and her POC had . Pt returns with a new referral in order to re-start therapy. Reports her goals are to be able to walk better, and with my arm down (pt exhibits L UE flexion pattern, particularly when focusing on ambulation). Would also like to get back to swimming for exercise. PT-OP-C Subjective Start: 11/15/24 15:46 Freq: Status: Active Protocol: Document 12/04/24 10:45 PG (Rec: 12/04/24 11:33 PG Laptop) OP-PT Subjective Patient Comments Patient Comments Pt states she is doing good. During treatment she comments that she has a hard time advancing/lifting LLE. PT-OP-E Functional Tests Start: 11/15/24 15:46 Freq: Status: Active Protocol: Document 11/15/24 13:45 DCW (Rec: 11/15/24 15:56 DCW [id number]) Functional Tests 30 Second Sit to Stand Test Score x11 repetitions Comments No UE use Dynamic Gait Index (DGI) Score 17/24 DGI Impairment Rating 20 to <40% Impaired (Score 15- 19) Timed Up and Go (TUG) Score 13.11 Comments Three-trial average (13.54, 12 .55, 13.25) PT-OP-G Mobility & Gait Start: 11/15/24 15:46 Freq: Status: Active Protocol: Document 11/15/24 13:45 DCW (Rec: 11/15/24 15:56 DCW [id number]) OP Gait Assessment Comments Gait Comments Pt ambulates with steppage gait pattern on left, as well as left foot pronation during stance phase secondary to weakness of inversion. Stair Climbing Evaluation Evaluation Level of Assist On Stairs Independent Devices Stair Climbing Assistive Devices None Technique/Endurance Stair Climbing Direction Ascend and Descend Stair Climbing Technique Step Over Step Number of Steps Climbed 4 Stair Climbing Set # Repetitions (reps) 2 PT-OP-M Strength Start: 11/15/24 15:46 Freq: Status: Active Protocol: Document 11/15/24 13:45 DCW (Rec: 11/15/24 15:56 DCW [id number]) Hip Strength Hip Manual Muscle Testing Right Flexion (L2) 4+ Good+ Extension (S1) 4+ Good+ Abduction 4+ Good+ Adduction 4+ Good+ External Rotation 4+ Good+ Internal Rotation 4+ Good+ Left Flexion (L2) 4 Good Extension (S1) 4+ Good+ Abduction 4- Good- Adduction 4 Good External Rotation 4- Good- Internal Rotation 4- Good- Knee Strength Knee Manual Muscle Testing Right Flexion (S2) 4+ Good+ Extension (L3) 4+ Good+ Left Flexion (S2) 4+ Good+ Extension (L3) 4+ Good+ Ankle/Foot Strength Ankle and Foot Manual Muscle Testing Right Dorsiflexion (L4) 4+ Good+ Plantarflexion (S1) 4+ Good+ Inversion 4+ Good+ Eversion (S1) 4+ Good+ Left Dorsiflexion (L4) 4+ Good+ Plantarflexion (S1) 3- Fair- Inversion 2 Poor Eversion (S1) 3- Fair- PT-OP-Q Treatments Start: 11/15/24 15:46 Freq: Status: Active Protocol: Document 12/04/24 10:45 PG (Rec: 12/04/24 11:33 PG Laptop) Gym Equipment Shuttle Balance Red Details WBOS, NBOS, Staggered: head nods, EO/EC Comments CGA, cues for core engagement, scap retraction, L arm kept at side, required CGA - 5%A for EC. Cues to weight shift equally into BLE's. Therapeutic Exercises Standing Exercises Resisted walking Standing Exercise Name 1. Lateral 2. Backward Side bilateral Resistance 1. lvl 3 tb 2. lvl 3 tb > no band Equipment Used // bars, no UE support - CGA Reps/Minutes 1. // bar length dwn and back x2 2. //bar length dwn and back x4 Comments 1. cues to keep toes pointed fwrd 2. incre RLE step lngth, wgt shift over L HS curl Standing Exercise Name Pt stated she's only doing seated HS curls, trialed standing in PT Side bilateral Resistance AROM Equipment Used BUE on railing Reps/Minutes 10x each Comments mod cues to keep thigh stationary, // with opp leg and bring foot to bottom Hip abduction Standing Exercise Name Added to HEP Side bilateral Resistance level 2 Equipment Used BUE on handrail Reps/Minutes 10x each Comments cues to lead with heel to target glute med Hip extension Standing Exercise Name HEP review: added resistance Side bilateral Resistance level 2 Equipment Used BUE on handrail Reps/Minutes x10 ea Comments cues to lift leg straight back , not across other LE when extending back. Neuro Re-Education Treatment Balance Activities Marching Details Marching on foam Surface foam Reps/Duration 20x Comments cues to weight shift over stance leg, keep LUE at side, slow descend of RLE to foam, CGA Hurdles Details Foam/Hurdles - fwd and lateral Equipment // bars Reps/Duration length of //bars back and forth 2x each Comments Cues to keep left arm at side, CGA PT-OP-T Assessment and Plan Start: 11/15/24 15:46 Freq: Status: Active Protocol: Document 12/04/24 10:45 PG (Rec: 12/04/24 11:33 PG Laptop) Physical Therapy Assessment Impairments Impairments Activity Tolerance,Balance, Functional Activities, Functional Mobility,Gait, Strength Goals Three Impairment Pt presents as a falls risk, per DGI score of 17/24 Retirement Goal (LTG) Pt to demonstrate a reduction in falls risk by scoring at least 20/24 on the DGI LTG Duration 02/13/25 Two Impairment Left LE weakness impacts gait ability Retirement Goal (LTG) Pt to improve left hip strength to at least 4/5 and left ankle strength to at least 3/5 in all tested planes in order to improve quality of gait and decrease compensatory strategies. LTG Duration 02/13/25 One Impairment Pt does not have an appropriate home exercise program Short Term Goal (STG) Pt to be independent and compliant with an appropriate HEP STG Duration 12/15/24 Assessment Summary Assessment Continued working on balancing challenges and LE strengthening. Trialed backwards walking within the / /bars, pt demonstrated limited step length with RLE going backwards (step to gait) due to decreased time in SLS on the left. With cues to weight shift over LLE, pt was able to improve step length with RLE going backward. Cued for equally weight bearing into both L and R LE's on balance shuttle and incorporated marching on foam activity to work on weight shifts, cues to slow and soften descend of RLE for increased time in SLS on LLE. Physical Therapy Plan Frequency and Duration Frequency of Treatment 2x/Week Plan of Care Start Date 11/15/24 Plan of Care End Date 02/13/25 Therapeutic Interventions Therapeutic Interventions Balance Training,Coordination Training,Gait Training,Home Exercise Program,Joint Mobilizations,Manual Therapy, Neuromuscular Re-education, Patient/Caregiver Education, Self-Care/Home Management,Soft Tissue Mobilization,Taping, Therapeutic Activities, Therapeutic Exercises Next Visit Focus/Plan Next Note Type Treatment Note Next Visit Plan Next: Mod SLS on LLE, review backward walking Gait training, LE strengthening, Balance challenges
--- NOTE | 2024-12-19 16:58 | PT.OTN ---
Current Diagnoses Unspecified sequelae of cerebral infarction (12/19/24) Unsteadiness on feet (12/19/24) Other abnormalities of gait and mobility (12/19/24) Physical Therapy Treatment Note PT-OP-A Visit Information Start: 11/15/24 15:46 Freq: Status: Active Protocol: Document 12/19/24 10:57 NBM (Rec: 12/19/24 11:38 NBM Laptop) Out-Patient Physical Therapy Visit Information Visit Information Visit Type Treatment Note Visit Start Time 10:55 Visit Stop Time 11:37 Visit Number 5 Number of CONFIDENTIAL INVESTIGATOR Visits 3 Evaluation Information Evaluation Date 11/15/24 PT-OP-B Current Condition Start: 11/15/24 15:46 Freq: Status: Active Protocol: Document 11/15/24 13:45 DCW (Rec: 11/16/24 09:44 DCW [id number]) Current Condition History of Current Condition Onset Date February 2021 Current Complaints gait difficulty s/p CVA History of Current Pt is a 64 year old female presenting to skilled Condition therapy 3.5 years s/p CVA. Pt reports her biggest lingering complaints are that she drags her left foot during gait, and she has a slow gait speed. Admits she doesn't have much problems with balance, has only had two falls since her CVA, none recently. Was being treated at this clinic for this same complaint earlier this year, but due to some scheduling conflicts and a vacation out of state, was not seen for ~1 month, and her POC had . Pt returns with a new referral in order to re-start therapy. Reports her goals are to be able to walk better, and with my arm down (pt exhibits L UE flexion pattern, particularly when focusing on ambulation). Would also like to get back to swimming for exercise. PT-OP-C Subjective Start: 11/15/24 15:46 Freq: Status: Active Protocol: Document 12/19/24 10:57 NBM (Rec: 12/19/24 11:38 NBM Laptop) OP-PT Subjective Patient Comments Patient Comments Laurel reports she tried running on beach yesterday and did not fall. She tried hiking to [place] with spouse and dog and that was too difficult because L foot kept catching and spouse was also taking care of dog, and she was nervous to [place]. PT-OP-E Functional Tests Start: 11/15/24 15:46 Freq: Status: Active Protocol: Document 11/15/24 13:45 DCW (Rec: 11/15/24 15:56 DCW [id number]) Functional Tests 30 Second Sit to Stand Test Score x11 repetitions Comments No UE use Dynamic Gait Index (DGI) Score 17/24 DGI Impairment 20 to <40% Impaired (Score 15-19) Rating Timed Up and Go (TUG) Score 13.11 Comments Three-trial average (13.54, 12.55, 13.25) PT-OP-G Mobility & Gait Start: 11/15/24 15:46 Freq: Status: Active Protocol: Document 11/15/24 13:45 DCW (Rec: 11/15/24 15:56 DCW [id number]) OP Gait Assessment Comments Gait Comments Pt ambulates with steppage gait pattern on left, as well as left foot pronation during stance phase secondary to weakness of inversion. Stair Climbing Evaluation Evaluation Level of Assist On Independent Stairs Devices Stair Climbing None Assistive Devices Technique/Endurance Stair Climbing Ascend and Descend Direction Stair Climbing Step Over Step Technique Number of Steps 4 Climbed Stair Climbing Set # 2 Repetitions (reps) PT-OP-M Strength Start: 11/15/24 15:46 Freq: Status: Active Protocol: Document 11/15/24 13:45 DCW (Rec: 11/15/24 15:56 DCW [id number]) Hip Strength Hip Manual Muscle Testing Right Flexion (L2) 4+ Good+ Extension (S1) 4+ Good+ Abduction 4+ Good+ Adduction 4+ Good+ External Rotation 4+ Good+ Internal Rotation 4+ Good+ Left Flexion (L2) 4 Good Extension (S1) 4+ Good+ Abduction 4- Good- Adduction 4 Good External Rotation 4- Good- Internal Rotation 4- Good- Knee Strength Knee Manual Muscle Testing Right Flexion (S2) 4+ Good+ Extension (L3) 4+ Good+ Left Flexion (S2) 4+ Good+ Extension (L3) 4+ Good+ Ankle/Foot Strength Ankle and Foot Manual Muscle Testing Right Dorsiflexion (L4) 4+ Good+ Plantarflexion (S1) 4+ Good+ Inversion 4+ Good+ Eversion (S1) 4+ Good+ Left Dorsiflexion (L4) 4+ Good+ Plantarflexion (S1) 3- Fair- Inversion 2 Poor Eversion (S1) 3- Fair- PT-OP-Q Treatments Start: 11/15/24 15:46 Freq: Status: Active Protocol: Document 12/19/24 10:57 NBM (Rec: 12/19/24 11:38 NBM Laptop) Gym Equipment Shuttle Balance Red Details WBOS, NBOS, Staggered Comments CGA, Cues to weight shift equally into BLE's. 1. DL balance, stilling platform - w/ perturbations - EO/EC 2. a/p weightshifting; staggered w/ recip arm swing 3. m/l weightshifting, eccentric control focus. Therapeutic Exercises Standing Exercises Resisted walking Standing Exercise 1. Lateral 2. Backward Name Side bilateral Resistance 1. lvl 2 tb 2. no band Equipment Used // bars, 1. UE support 2. support>no UE support - CGA Reps/Minutes 1. // bar length dwn and back x2 ea 2. //bar length dwn and back x4 Comments 1. cues to keep toes pointed fwrd 2. incre RLE step lngth, wgt shift over L HS curl Standing Exercise HEP review Name Side bilateral Resistance AROM Equipment Used 1 TOOL CRIB SUPERVISOR on railing Reps/Minutes R 2x10 L x10, x7 Comments visl cue to keep thigh stationary, // with opp leg, maintain DF. Hip abduction Standing Exercise HEP review Name Side bilateral Resistance level 2 above knees Equipment Used BUE on handrail Reps/Minutes 10x each Comments cues to lead with heel to target glute med Hip extension Standing Exercise HEP review Name Side bilateral Resistance level 2 at ankles Equipment Used BUE on handrail Reps/Minutes 2x10 ea Comments cues DF, lift leg straight back, not across other LE when extending back. Gait Training Gait Activity Pre-gait Description a/p rocking in staggered B w/ recip arm swing Surface firm Distance/Duration x15 ea Comments cues to minimize trunk rotation w/ arm swing Ambulation Description ambulation Device Used GB CGA Surface firm Distance/Duration two laps in clinic Treatment Focus LLE DF and LUE extension and arm swin Comments Breaks as needed to allow for LUE extension PT-OP-T Assessment and Plan Start: 11/15/24 15:46 Freq: Status: Active Protocol: Document 12/19/24 10:57 NBM (Rec: 12/19/24 11:38 NBM Laptop) Physical Therapy Assessment Assessment Summary Assessment Treatment focus on maintaining L dorsiflexion and neutral foot positioning with HEP review and with ambulation using reciprocal arm swing, and balance. Laurel requires cues to improve form with standing exercises reviewed today for HEP due to knee flexion compensation for L foot drop and demos improved self- awareness. She requires cues for excessive trunk rotation with reciprocal arm swing during anteroposterior rocking in staggered stance bilaterally and with ambulation. With cues and repetition she is able to demonstraet eccentric control weightshifting bilaterally in mediolateral stance on Shuttle Balance red clips. Physical Therapy Plan Frequency and Duration Frequency of 2x/Week Treatment Plan of Care Start 11/15/24 Date Plan of Care End 02/13/25 Date Therapeutic Interventions Therapeutic Balance Training,Coordination Training,Gait Training, Interventions Home Exercise Program,Joint Mobilizations,Manual Therapy,Neuromuscular Re-education,Patient/Caregiver Education,Self-Care/Home Management,Soft Tissue Mobilization,Taping,Therapeutic Activities,Therapeutic Exercises Next Visit Focus/Plan Next Note Type Treatment Note Next Visit Plan Next: Mod SLS on LLE, review backward walking Gait training, LE strengthening, Balance challenges
--- NOTE | 2024-12-28 15:51 | PT.OTN ---
Current Diagnoses Unspecified sequelae of cerebral infarction (12/28/24) Unsteadiness on feet (12/28/24) Other abnormalities of gait and mobility (12/28/24) Physical Therapy Treatment Note PT-OP-A Visit Information Start: 11/15/24 15:46 Freq: Status: Active Protocol: Document 12/28/24 15:29 NBM (Rec: 12/28/24 15:50 NBM Laptop) Out-Patient Physical Therapy Visit Information Visit Information Visit Type Treatment Note Visit Start Time 11:40 Visit Stop Time 12:20 Visit Number 6 Number of THREAD GRINDER Visits 4 Evaluation Information Evaluation Date 11/15/24 PT-OP-B Current Condition Start: 11/15/24 15:46 Freq: Status: Active Protocol: Document 11/15/24 13:45 DCW (Rec: 11/16/24 09:44 DCW [id number]) Current Condition History of Current Condition Onset Date February 2021 Current Complaints gait difficulty s/p CVA History of Current Pt is a 64 year old female presenting to skilled Condition therapy 3.5 years s/p CVA. Pt reports her biggest lingering complaints are that she drags her left foot during gait, and she has a slow gait speed. Admits she doesn't have much problems with balance, has only had two falls since her CVA, none recently. Was being treated at this clinic for this same complaint earlier this year, but due to some scheduling conflicts and a vacation out of state, was not seen for ~1 month, and her POC had . Pt returns with a new referral in order to re-start therapy. Reports her goals are to be able to walk better, and with my arm down (pt exhibits L UE flexion pattern, particularly when focusing on ambulation). Would also like to get back to swimming for exercise. PT-OP-C Subjective Start: 11/15/24 15:46 Freq: Status: Active Protocol: Document 12/28/24 15:29 NBM (Rec: 12/28/24 15:50 NBM Laptop) OP-PT Subjective Patient Comments Patient Comments Laurel reports she is doing step aerobics routine from [employer]. She taps her L foot in car to the music to help with lifting her L foot up. PT-OP-E Functional Tests Start: 11/15/24 15:46 Freq: Status: Active Protocol: Document 11/15/24 13:45 DCW (Rec: 11/15/24 15:56 DCW [id number]) Functional Tests 30 Second Sit to Stand Test Score x11 repetitions Comments No UE use Dynamic Gait Index (DGI) Score 17/24 DGI Impairment 20 to <40% Impaired (Score 15-19) Rating Timed Up and Go (TUG) Score 13.11 Comments Three-trial average (13.54, 12.55, 13.25) PT-OP-G Mobility & Gait Start: 11/15/24 15:46 Freq: Status: Active Protocol: Document 11/15/24 13:45 DCW (Rec: 11/15/24 15:56 DCW [id number]) OP Gait Assessment Comments Gait Comments Pt ambulates with steppage gait pattern on left, as well as left foot pronation during stance phase secondary to weakness of inversion. Stair Climbing Evaluation Evaluation Level of Assist On Independent Stairs Devices Stair Climbing None Assistive Devices Technique/Endurance Stair Climbing Ascend and Descend Direction Stair Climbing Step Over Step Technique Number of Steps 4 Climbed Stair Climbing Set # 2 Repetitions (reps) PT-OP-M Strength Start: 11/15/24 15:46 Freq: Status: Active Protocol: Document 11/15/24 13:45 DCW (Rec: 11/15/24 15:56 DCW [id number]) Hip Strength Hip Manual Muscle Testing Right Flexion (L2) 4+ Good+ Extension (S1) 4+ Good+ Abduction 4+ Good+ Adduction 4+ Good+ External Rotation 4+ Good+ Internal Rotation 4+ Good+ Left Flexion (L2) 4 Good Extension (S1) 4+ Good+ Abduction 4- Good- Adduction 4 Good External Rotation 4- Good- Internal Rotation 4- Good- Knee Strength Knee Manual Muscle Testing Right Flexion (S2) 4+ Good+ Extension (L3) 4+ Good+ Left Flexion (S2) 4+ Good+ Extension (L3) 4+ Good+ Ankle/Foot Strength Ankle and Foot Manual Muscle Testing Right Dorsiflexion (L4) 4+ Good+ Plantarflexion (S1) 4+ Good+ Inversion 4+ Good+ Eversion (S1) 4+ Good+ Left Dorsiflexion (L4) 4+ Good+ Plantarflexion (S1) 3- Fair- Inversion 2 Poor Eversion (S1) 3- Fair- PT-OP-Q Treatments Start: 11/15/24 15:46 Freq: Status: Active Protocol: Document 12/28/24 15:29 NBM (Rec: 12/28/24 15:50 NBM Laptop) Therapeutic Exercises Sitting Exercises Ankle inversion Sitting Exercise HEP: Ankle Inversion/Eversion/DF; PF w/ calf/HS stretch Name in straight leg Side left Resistance Lv 3 with loop at one end Reps/Minutes x10 ea Comments Ev crossed RLE in front to anchor band, vc ecc control. Standing Exercises TKE Standing Exercise HEP: terminal knee ext Name Side left Resistance lvl 3 Equipment Used anchored on training stairs Reps/Minutes 10 AROM, 3 x 2 SH wall squats Standing Exercise HEP Name Resistance Lvl 2 Tb above knees Reps/Minutes x10 Comments cues for set up, LE alignment stretch Standing Exercise calf stretch lunge position (gastroc/soleus) Name Side bilateral Equipment Used handrail Reps/Minutes 30-45 ea Comments cues for hip width, toes fwd. Resisted walking Standing Exercise fwd Name Side bilateral Resistance lvl 2 tb above knees Equipment Used no UE support - close SBA Reps/Minutes 10 ft Gait Training Gait Activity Ambulation Description indoors/outdoors Device Used GB CGA Surface tile, carpet, pavement, gravel Distance/Duration 850 ft Treatment Focus L LE DF and increased stance time, L UE ext Comments 70 bpm metronome improves equal stance time. PT-OP-T Assessment and Plan Start: 11/15/24 15:46 Freq: Status: Active Protocol: Document 12/28/24 15:29 NBM (Rec: 12/28/24 15:50 NBM Laptop) Physical Therapy Assessment Goals Three Impairment Pt presents as a falls risk, per DGI score of 17/24 Enrichment Specialist Goal (LTG) Pt to demonstrate a reduction in falls risk by scoring at least 20/24 on the DGI LTG Duration 02/13/25 Two Impairment Left LE weakness impacts gait ability Enrichment Specialist Goal (LTG) Pt to improve left hip strength to at least 4/5 and left ankle strength to at least 3/5 in all tested planes in order to improve quality of gait and decrease compensatory strategies. LTG Duration 02/13/25 One Impairment Pt does not have an appropriate home exercise program Short Term Goal (STG Pt to be independent and compliant with an appropriate ) HEP STG Duration 12/15/24 Assessment Summary Assessment Treatment focus on L lower extremity strengthening and incorporating improving self-awareness into gait training, as well as increasing stance time on LLE w/ 70bpm metronome, which pt responds well to ambulating indoors/outdoors on varied surfaces. Physical Therapy Plan Frequency and Duration Frequency of 2x/Week Treatment Plan of Care Start 11/15/24 Date Plan of Care End 02/13/25 Date Therapeutic Interventions Therapeutic Balance Training,Coordination Training,Gait Training, Interventions Home Exercise Program,Joint Mobilizations,Manual Therapy,Neuromuscular Re-education,Patient/Caregiver Education,Self-Care/Home Management,Soft Tissue Mobilization,Taping,Therapeutic Activities,Therapeutic Exercises Next Visit Focus/Plan Next Note Type Treatment Note Next Visit Plan Next: Mod SLS on LLE, review backward walking POC: Gait training, LE strengthening, Balance challenges
--- NOTE | 2025-01-02 12:12 | PT.OTN ---
Current Diagnoses Unspecified sequelae of cerebral infarction (01/02/25) Unsteadiness on feet (01/02/25) Other abnormalities of gait and mobility (01/02/25) Physical Therapy Treatment Note PT-OP-A Visit Information Start: 11/15/24 15:46 Freq: Status: Active Protocol: Document 01/02/25 11:30 DCW (Rec: 01/02/25 12:12 DCW [id number]) Out-Patient Physical Therapy Visit Information Visit Information Visit Type Treatment Note Visit Start Time 11:30 Visit Stop Time 12:15 Visit Number 7 Number of ROTARY DRILL RIG OPERATOR Visits 0 Evaluation Information Evaluation Date 11/15/24 PT-OP-B Current Condition Start: 11/15/24 15:46 Freq: Status: Active Protocol: Document 11/15/24 13:45 DCW (Rec: 11/16/24 09:44 DCW [id number]) Current Condition History of Current Condition Onset Date February 2021 Current Complaints gait difficulty s/p CVA History of Current Pt is a 64 year old female presenting to skilled Condition therapy 3.5 years s/p CVA. Pt reports her biggest lingering complaints are that she drags her left foot during gait, and she has a slow gait speed. Admits she doesn't have much problems with balance, has only had two falls since her CVA, none recently. Was being treated at this clinic for this same complaint earlier this year, but due to some scheduling conflicts and a vacation out of state, was not seen for ~1 month, and her POC had . Pt returns with a new referral in order to re-start therapy. Reports her goals are to be able to walk better, and with my arm down (pt exhibits L UE flexion pattern, particularly when focusing on ambulation). Would also like to get back to swimming for exercise. PT-OP-C Subjective Start: 11/15/24 15:46 Freq: Status: Active Protocol: Document 01/02/25 11:30 DCW (Rec: 01/02/25 12:12 DCW [id number]) OP-PT Subjective Patient Comments Patient Comments Pt reports she has been using the metronome at home, she thinks she getting better with it. PT-OP-E Functional Tests Start: 11/15/24 15:46 Freq: Status: Active Protocol: Document 11/15/24 13:45 DCW (Rec: 11/15/24 15:56 [facility] [id number]) Functional Tests 30 Second Sit to Stand Test Score x11 repetitions Comments No UE use Dynamic Gait Index (DGI) Score 17/24 DGI Impairment 20 to <40% Impaired (Score 15-19) Rating Timed Up and Go (TUG) Score 13.11 Comments Three-trial average (13.54, 12.55, 13.25) PT-OP-G Mobility & Gait Start: 11/15/24 15:46 Freq: Status: Active Protocol: Document 11/15/24 13:45 DCW (Rec: 11/15/24 15:56 [facility] [id number]) OP Gait Assessment Comments Gait Comments Pt ambulates with steppage gait pattern on left, as well as left foot pronation during stance phase secondary to weakness of inversion. Stair Climbing Evaluation Evaluation Level of Assist On Independent Stairs Devices Stair Climbing None Assistive Devices Technique/Endurance Stair Climbing Ascend and Descend Direction Stair Climbing Step Over Step Technique Number of Steps 4 Climbed Stair Climbing Set # 2 Repetitions (reps) PT-OP-M Strength Start: 11/15/24 15:46 Freq: Status: Active Protocol: Document 11/15/24 13:45 DCW (Rec: 11/15/24 15:56 [facility] [id number]) Hip Strength Hip Manual Muscle Testing Right Flexion (L2) 4+ Good+ Extension (S1) 4+ Good+ Abduction 4+ Good+ Adduction 4+ Good+ External Rotation 4+ Good+ Internal Rotation 4+ Good+ Left Flexion (L2) 4 Good Extension (S1) 4+ Good+ Abduction 4- Good- Adduction 4 Good External Rotation 4- Good- Internal Rotation 4- Good- Knee Strength Knee Manual Muscle Testing Right Flexion (S2) 4+ Good+ Extension (L3) 4+ Good+ Left Flexion (S2) 4+ Good+ Extension (L3) 4+ Good+ Ankle/Foot Strength Ankle and Foot Manual Muscle Testing Right Dorsiflexion (L4) 4+ Good+ Plantarflexion (S1) 4+ Good+ Inversion 4+ Good+ Eversion (S1) 4+ Good+ Left Dorsiflexion (L4) 4+ Good+ Plantarflexion (S1) 3- Fair- Inversion 2 Poor Eversion (S1) 3- Fair- PT-OP-Q Treatments Start: 11/15/24 15:46 Freq: Status: Active Protocol: Document 01/02/25 11:30 DCW (Rec: 01/02/25 12:12 DCW [id number]) Gym Equipment Shuttle Balance Red Details WBOS, Staggered, Lateral weight shift Therapeutic Exercises Sitting Exercises Ankle inversion Sitting Exercise Ankle Inversion/Eversion/DF Name Side left Resistance Lv 3 Other Exercises Toe Taps Other Exercise Name Toe-taps Side bilateral Resistance 4# Equipment Used 6 step Neuro Re-Education Treatment Balance Activities Marching Details Marching on foam Surface foam Reps/Duration 20x Comments 4# AW Hurdles Details Foam/Hurdles - fwd and lateral Equipment // bars Reps/Duration length of //bars back and forth 2x each Comments Cues to keep left arm at side, CGA PT-OP-T Assessment and Plan Start: 11/15/24 15:46 Freq: Status: Active Protocol: Document 01/02/25 11:30 DCW (Rec: 01/02/25 12:12 DCW [id number]) Physical Therapy Assessment Impairments Impairments Activity Tolerance,Balance,Functional Activities, Functional Mobility,Gait,Strength Goals Three Impairment Pt presents as a falls risk, per DGI score of 17/24 Jail Goal (LTG) Pt to demonstrate a reduction in falls risk by scoring at least 20/24 on the DGI LTG Duration 02/13/25 Two Impairment Left LE weakness impacts gait ability Sheet Metal Journeyman Goal (LTG) Pt to improve left hip strength to at least 4/5 and left ankle strength to at least 3/5 in all tested planes in order to improve quality of gait and decrease compensatory strategies. LTG Duration 02/13/25 - improving One Impairment Pt does not have an appropriate home exercise program Short Term Goal (STG Pt to be independent and compliant with an appropriate ) HEP STG Duration 01/15/25 - improving Assessment Summary Assessment Pt feeling much more confident with functional mobility and left LE strength. Increased ease with ambulation, feels her ankle has been more stable. Continue to focus on functional mobility, balance, gait, and LE strength . Physical Therapy Plan Frequency and Duration Frequency of 2x/Week Treatment Plan of Care Start 11/15/24 Date Plan of Care End 02/13/25 Date Therapeutic Interventions Therapeutic Balance Training,Coordination Training,Gait Training, Interventions Home Exercise Program,Joint Mobilizations,Manual Therapy,Neuromuscular Re-education,Patient/Caregiver Education,Self-Care/Home Management,Soft Tissue Mobilization,Taping,Therapeutic Activities,Therapeutic Exercises Next Visit Focus/Plan Next Note Type Treatment Note Next Visit Plan Next: Mod SLS on LLE, review backward walking POC: Gait training, LE strengthening, Balance challenges
--- NOTE | 2025-01-09 12:16 | PT.OTN ---
Current Diagnoses Unspecified sequelae of cerebral infarction (01/09/25) Unsteadiness on feet (01/09/25) Other abnormalities of gait and mobility (01/09/25) Physical Therapy Treatment Note PT-OP-A Visit Information Start: 11/15/24 15:46 Freq: Status: Active Protocol: Document 01/09/25 11:30 DCW (Rec: 01/09/25 12:16 DCW [id number]) Out-Patient Physical Therapy Visit Information Visit Information Visit Type Treatment Note Visit Start Time 11:30 Visit Stop Time 12:15 Visit Number 8 Number of THERMAL TECHNICIAN Visits 0 Evaluation Information Evaluation Date 11/15/24 PT-OP-B Current Condition Start: 11/15/24 15:46 Freq: Status: Active Protocol: Document 11/15/24 13:45 DCW (Rec: 11/16/24 09:44 DCW [id number]) Current Condition History of Current Condition Onset Date February 2021 Current Complaints gait difficulty s/p CVA History of Current Pt is a 64 year old female presenting to skilled Condition therapy 3.5 years s/p CVA. Pt reports her biggest lingering complaints are that she drags her left foot during gait, and she has a slow gait speed. Admits she doesn't have much problems with balance, has only had two falls since her CVA, none recently. Was being treated at this clinic for this same complaint earlier this year, but due to some scheduling conflicts and a vacation out of state, was not seen for ~1 month, and her POC had . Pt returns with a new referral in order to re-start therapy. Reports her goals are to be able to walk better, and with my arm down (pt exhibits L UE flexion pattern, particularly when focusing on ambulation). Would also like to get back to swimming for exercise. PT-OP-C Subjective Start: 11/15/24 15:46 Freq: Status: Active Protocol: Document 01/09/25 11:30 DCW (Rec: 01/09/25 12:16 DCW [id number]) OP-PT Subjective Patient Comments Patient Comments Pt has been getting out more walking with her , they're currently dog sitting. PT-OP-E Functional Tests Start: 11/15/24 15:46 Freq: Status: Active Protocol: Document 11/15/24 13:45 DCW (Rec: 11/15/24 15:56 [facility] [id number]) Functional Tests 30 Second Sit to Stand Test Score x11 repetitions Comments No UE use Dynamic Gait Index (DGI) Score 17/24 DGI Impairment 20 to <40% Impaired (Score 15-19) Rating Timed Up and Go (TUG) Score 13.11 Comments Three-trial average (13.54, 12.55, 13.25) PT-OP-G Mobility & Gait Start: 11/15/24 15:46 Freq: Status: Active Protocol: Document 11/15/24 13:45 DCW (Rec: 11/15/24 15:56 [facility] [id number]) OP Gait Assessment Comments Gait Comments Pt ambulates with steppage gait pattern on left, as well as left foot pronation during stance phase secondary to weakness of inversion. Stair Climbing Evaluation Evaluation Level of Assist On Independent Stairs Devices Stair Climbing None Assistive Devices Technique/Endurance Stair Climbing Ascend and Descend Direction Stair Climbing Step Over Step Technique Number of Steps 4 Climbed Stair Climbing Set # 2 Repetitions (reps) PT-OP-M Strength Start: 11/15/24 15:46 Freq: Status: Active Protocol: Document 11/15/24 13:45 DCW (Rec: 11/15/24 15:56 [facility] [id number]) Hip Strength Hip Manual Muscle Testing Right Flexion (L2) 4+ Good+ Extension (S1) 4+ Good+ Abduction 4+ Good+ Adduction 4+ Good+ External Rotation 4+ Good+ Internal Rotation 4+ Good+ Left Flexion (L2) 4 Good Extension (S1) 4+ Good+ Abduction 4- Good- Adduction 4 Good External Rotation 4- Good- Internal Rotation 4- Good- Knee Strength Knee Manual Muscle Testing Right Flexion (S2) 4+ Good+ Extension (L3) 4+ Good+ Left Flexion (S2) 4+ Good+ Extension (L3) 4+ Good+ Ankle/Foot Strength Ankle and Foot Manual Muscle Testing Right Dorsiflexion (L4) 4+ Good+ Plantarflexion (S1) 4+ Good+ Inversion 4+ Good+ Eversion (S1) 4+ Good+ Left Dorsiflexion (L4) 4+ Good+ Plantarflexion (S1) 3- Fair- Inversion 2 Poor Eversion (S1) 3- Fair- PT-OP-Q Treatments Start: 11/15/24 15:46 Freq: Status: Active Protocol: Document 01/09/25 11:30 DCW (Rec: 01/09/25 12:16 DCW [id number]) Gym Equipment Shuttle Recovery B squat Resistance 87# (three navy) Reps/Time 2x15 L squat Details Left LE Resistance 50# (two teal) Reps/Time 2x15 Shuttle Balance Red Details WBOS, Staggered, Lateral weight shift Neuro Re-Education Treatment Balance Activities Ball pick-up Details Ball/Cone pick-up and toss Surface AirEx -> Black air pad Hurdles Details Foam/Hurdles - fwd, tandem, and lateral Equipment @ rail Reps/Duration back and forth 2x each Comments Cues to keep left arm at side, CGA PT-OP-T Assessment and Plan Start: 11/15/24 15:46 Freq: Status: Active Protocol: Document 01/09/25 11:30 DCW (Rec: 01/09/25 12:16 DCW [id number]) Physical Therapy Assessment Impairments Impairments Activity Tolerance,Balance,Functional Activities, Functional Mobility,Gait,Strength Goals Three Impairment Pt presents as a falls risk, per DGI score of 17/24 Prison Goal (LTG) Pt to demonstrate a reduction in falls risk by scoring at least 20/24 on the DGI LTG Duration 02/13/25 Two Impairment Left LE weakness impacts gait ability Prison Goal (LTG) Pt to improve left hip strength to at least 4/5 and left ankle strength to at least 3/5 in all tested planes in order to improve quality of gait and decrease compensatory strategies. LTG Duration 02/13/25 - improving One Impairment Pt does not have an appropriate home exercise program Short Term Goal (STG Pt to be independent and compliant with an appropriate ) HEP STG Duration 01/15/25 - improving Assessment Summary Assessment Pt performing very well today, good recovery from increased balance challenges. Showing good response to bending and standing while on foam. Continue to focus on balance, gait, strength, and activity tolerance. Physical Therapy Plan Frequency and Duration Frequency of 2x/Week Treatment Plan of Care Start 11/15/24 Date Plan of Care End 02/13/25 Date Therapeutic Interventions Therapeutic Balance Training,Coordination Training,Gait Training, Interventions Home Exercise Program,Joint Mobilizations,Manual Therapy,Neuromuscular Re-education,Patient/Caregiver Education,Self-Care/Home Management,Soft Tissue Mobilization,Taping,Therapeutic Activities,Therapeutic Exercises Next Visit Focus/Plan Next Note Type Treatment Note Next Visit Plan Next: Mod SLS on LLE, review backward walking POC: Gait training, LE strengthening, Balance challenges
--- NOTE | 2025-01-17 13:04 | PT.OTN ---
Current Diagnoses Unspecified sequelae of cerebral infarction (01/17/25) Unsteadiness on feet (01/17/25) Other abnormalities of gait and mobility (01/17/25) Physical Therapy Treatment Note PT-OP-A Visit Information Start: 11/15/24 15:46 Freq: Status: Active Protocol: Document 01/17/25 12:18 DCW (Rec: 01/17/25 13:04 DCW [id number]) Out-Patient Physical Therapy Visit Information Visit Information Visit Type Treatment Note Visit Start Time 12:18 Visit Stop Time 13:00 Visit Number 9 Number of GAS GENERATOR OPERATOR Visits 0 Evaluation Information Evaluation Date 11/15/24 PT-OP-B Current Condition Start: 11/15/24 15:46 Freq: Status: Active Protocol: Document 11/15/24 13:45 DCW (Rec: 11/16/24 09:44 DCW [id number]) Current Condition History of Current Condition Onset Date February 2021 Current Complaints gait difficulty s/p CVA History of Current Pt is a 64 year old female presenting to skilled Condition therapy 3.5 years s/p CVA. Pt reports her biggest lingering complaints are that she drags her left foot during gait, and she has a slow gait speed. Admits she doesn't have much problems with balance, has only had two falls since her CVA, none recently. Was being treated at this clinic for this same complaint earlier this year, but due to some scheduling conflicts and a vacation out of state, was not seen for ~1 month, and her POC had . Pt returns with a new referral in order to re-start therapy. Reports her goals are to be able to walk better, and with my arm down (pt exhibits L UE flexion pattern, particularly when focusing on ambulation). Would also like to get back to swimming for exercise. PT-OP-C Subjective Start: 11/15/24 15:46 Freq: Status: Active Protocol: Document 01/17/25 12:18 DCW (Rec: 01/17/25 13:04 DCW [id number]) OP-PT Subjective Patient Comments Patient Comments Notes her right knee is complaining a little bit today. PT-OP-E Functional Tests Start: 11/15/24 15:46 Freq: Status: Active Protocol: Document 11/15/24 13:45 DCW (Rec: 11/15/24 15:56 DCW [id number]) Functional Tests 30 Second Sit to Stand Test Score x11 repetitions Comments No UE use Dynamic Gait Index (DGI) Score 17/24 DGI Impairment 20 to <40% Impaired (Score 15-19) Rating Timed Up and Go (TUG) Score 13.11 Comments Three-trial average (13.54, 12.55, 13.25) PT-OP-G Mobility & Gait Start: 11/15/24 15:46 Freq: Status: Active Protocol: Document 11/15/24 13:45 DCW (Rec: 11/15/24 15:56 [facility] [id number]) OP Gait Assessment Comments Gait Comments Pt ambulates with steppage gait pattern on left, as well as left foot pronation during stance phase secondary to weakness of inversion. Stair Climbing Evaluation Evaluation Level of Assist On Independent Stairs Devices Stair Climbing None Assistive Devices Technique/Endurance Stair Climbing Ascend and Descend Direction Stair Climbing Step Over Step Technique Number of Steps 4 Climbed Stair Climbing Set # 2 Repetitions (reps) PT-OP-M Strength Start: 11/15/24 15:46 Freq: Status: Active Protocol: Document 11/15/24 13:45 DCW (Rec: 11/15/24 15:56 [facility] [id number]) Hip Strength Hip Manual Muscle Testing Right Flexion (L2) 4+ Good+ Extension (S1) 4+ Good+ Abduction 4+ Good+ Adduction 4+ Good+ External Rotation 4+ Good+ Internal Rotation 4+ Good+ Left Flexion (L2) 4 Good Extension (S1) 4+ Good+ Abduction 4- Good- Adduction 4 Good External Rotation 4- Good- Internal Rotation 4- Good- Knee Strength Knee Manual Muscle Testing Right Flexion (S2) 4+ Good+ Extension (L3) 4+ Good+ Left Flexion (S2) 4+ Good+ Extension (L3) 4+ Good+ Ankle/Foot Strength Ankle and Foot Manual Muscle Testing Right Dorsiflexion (L4) 4+ Good+ Plantarflexion (S1) 4+ Good+ Inversion 4+ Good+ Eversion (S1) 4+ Good+ Left Dorsiflexion (L4) 4+ Good+ Plantarflexion (S1) 3- Fair- Inversion 2 Poor Eversion (S1) 3- Fair- PT-OP-Q Treatments Start: 11/15/24 15:46 Freq: Status: Active Protocol: Document 01/17/25 12:18 DCW (Rec: 01/17/25 13:04 DCW [id number]) Gym Equipment Shuttle Recovery B squat Resistance 75# (three navy) Shuttle Recovery Unstable Platform Reps/Time 2x15 L squat Details Left LE Resistance 50# (two teal) Reps/Time 2x15 Shuttle Balance Red Details WBOS (EO/EC), Staggered Therapeutic Exercises Sitting Exercises Ankle inversion Sitting Exercise Ankle DF Name Side left Resistance Lv 3 Other Exercises Toe Taps Other Exercise Name Step-ups Side left Equipment Used 6 step Neuro Re-Education Treatment Balance Activities Toe-taps Details Cone toe-taps Surface AirEx Uneven surface Details Tandem Stance Surface AirEx Comments forward x 10, focus on L heel strike and eccentric control of DF. PT-OP-T Assessment and Plan Start: 11/15/24 15:46 Freq: Status: Active Protocol: Document 01/17/25 12:18 DCW (Rec: 01/17/25 13:04 DCW [id number]) Physical Therapy Assessment Impairments Impairments Activity Tolerance,Balance,Functional Activities, Functional Mobility,Gait,Strength Goals Three Impairment Pt presents as a falls risk, per DGI score of 17/24 Historical Site Guide Goal (LTG) Pt to demonstrate a reduction in falls risk by scoring at least 20/24 on the DGI LTG Duration 02/13/25 Two Impairment Left LE weakness impacts gait ability Historical Site Guide Goal (LTG) Pt to improve left hip strength to at least 4/5 and left ankle strength to at least 3/5 in all tested planes in order to improve quality of gait and decrease compensatory strategies. LTG Duration 02/13/25 - improving One Impairment Pt does not have an appropriate home exercise program Short Term Goal (STG Pt to be independent and compliant with an appropriate ) HEP STG Duration 01/15/25 - improving Assessment Summary Assessment Great response to treatment today, very good challenges with balance activities. Demonstrated ability to get up off floor, notes while currently dog-sitting, she will get down on the floor with the dog frequently. Physical Therapy Plan Frequency and Duration Frequency of 2x/Week Treatment Plan of Care Start 11/15/24 Date Plan of Care End 02/13/25 Date Therapeutic Interventions Therapeutic Balance Training,Coordination Training,Gait Training, Interventions Home Exercise Program,Joint Mobilizations,Manual Therapy,Neuromuscular Re-education,Patient/Caregiver Education,Self-Care/Home Management,Soft Tissue Mobilization,Taping,Therapeutic Activities,Therapeutic Exercises Next Visit Focus/Plan Next Note Type Treatment Note Next Visit Plan Next: Mod SLS on LLE, review backward walking POC: Gait training, LE strengthening, Balance challenges
--- NOTE | 2025-01-22 17:37 | PT.OTN ---
Addendum entered and electronically signed by Terence Murphy, PT 01/22/25 17:50: PT direct supervision and direction to student PT Xiang Echols throughout session Original Note: Current Diagnoses Unspecified sequelae of cerebral infarction (01/22/25) Unsteadiness on feet (01/22/25) Other abnormalities of gait and mobility (01/22/25) Physical Therapy Treatment Note PT-OP-A Visit Information Start: 11/15/24 15:46 Freq: Status: Active Protocol: Document 01/22/25 15:15 LFG (Rec: 01/22/25 16:16 LFG [id number]) Out-Patient Physical Therapy Visit Information Visit Information Visit Type Treatment Note Visit Start Time 15:15 Visit Stop Time 15:57 Visit Number 10 Number of POTATO CHIP SACKING MACHINE OPERATOR Visits 0 Evaluation Information Evaluation Date 11/15/24 PT-OP-B Current Condition Start: 11/15/24 15:46 Freq: Status: Active Protocol: Document 11/15/24 13:45 DCW (Rec: 11/16/24 09:44 DCW [id number]) Current Condition History of Current Condition Onset Date February 2021 Current Complaints gait difficulty s/p CVA History of Current Pt is a 64 year old female presenting to skilled Condition therapy 3.5 years s/p CVA. Pt reports her biggest lingering complaints are that she drags her left foot during gait, and she has a slow gait speed. Admits she doesn't have much problems with balance, has only had two falls since her CVA, none recently. Was being treated at this clinic for this same complaint earlier this year, but due to some scheduling conflicts and a vacation out of state, was not seen for ~1 month, and her POC had . Pt returns with a new referral in order to re-start therapy. Reports her goals are to be able to walk better, and with my arm down (pt exhibits L UE flexion pattern, particularly when focusing on ambulation). Would also like to get back to swimming for exercise. PT-OP-C Subjective Start: 11/15/24 15:46 Freq: Status: Active Protocol: Document 01/22/25 15:15 LFG (Rec: 01/22/25 16:16 LFG [id number]) OP-PT Subjective Patient Comments Patient Comments Pt comes in with knee brace today and reports that it does help her R knee. Bandaging on her L hand from scrapes she received while climbing/hiking. PT-OP-E Functional Tests Start: 11/15/24 15:46 Freq: Status: Active Protocol: Document 11/15/24 13:45 DCW (Rec: 11/15/24 15:56 DCW [id number]) Functional Tests 30 Second Sit to Stand Test Score x11 repetitions Comments No UE use Dynamic Gait Index (DGI) Score 17/24 DGI Impairment 20 to <40% Impaired (Score 15-19) Rating Timed Up and Go (TUG) Score 13.11 Comments Three-trial average (13.54, 12.55, 13.25) PT-OP-G Mobility & Gait Start: 11/15/24 15:46 Freq: Status: Active Protocol: Document 11/15/24 13:45 DCW (Rec: 11/15/24 15:56 DCW [id number]) OP Gait Assessment Comments Gait Comments Pt ambulates with steppage gait pattern on left, as well as left foot pronation during stance phase secondary to weakness of inversion. Stair Climbing Evaluation Evaluation Level of Assist On Independent Stairs Devices Stair Climbing None Assistive Devices Technique/Endurance Stair Climbing Ascend and Descend Direction Stair Climbing Step Over Step Technique Number of Steps 4 Climbed Stair Climbing Set # 2 Repetitions (reps) PT-OP-M Strength Start: 11/15/24 15:46 Freq: Status: Active Protocol: Document 11/15/24 13:45 DCW (Rec: 11/15/24 15:56 DCW [id number]) Hip Strength Hip Manual Muscle Testing Right Flexion (L2) 4+ Good+ Extension (S1) 4+ Good+ Abduction 4+ Good+ Adduction 4+ Good+ External Rotation 4+ Good+ Internal Rotation 4+ Good+ Left Flexion (L2) 4 Good Extension (S1) 4+ Good+ Abduction 4- Good- Adduction 4 Good External Rotation 4- Good- Internal Rotation 4- Good- Knee Strength Knee Manual Muscle Testing Right Flexion (S2) 4+ Good+ Extension (L3) 4+ Good+ Left Flexion (S2) 4+ Good+ Extension (L3) 4+ Good+ Ankle/Foot Strength Ankle and Foot Manual Muscle Testing Right Dorsiflexion (L4) 4+ Good+ Plantarflexion (S1) 4+ Good+ Inversion 4+ Good+ Eversion (S1) 4+ Good+ Left Dorsiflexion (L4) 4+ Good+ Plantarflexion (S1) 3- Fair- Inversion 2 Poor Eversion (S1) 3- Fair- PT-OP-Q Treatments Start: 11/15/24 15:46 Freq: Status: Active Protocol: Document 01/22/25 15:15 LFG (Rec: 01/22/25 16:16 LFG [id number]) Gym Equipment Shuttle Recovery B squat Details cues for knee valgus Resistance 75# (three navy) Shuttle Recovery Unstable Platform Reps/Time 2x15 L squat Details Left LE cues for knee valgus Resistance 50# (two teal) Reps/Time 2x15 Shuttle Balance Red Details WBOS (EO/EC), Staggered Comments CGA Therapeutic Exercises Sitting Exercises Ankle inversion Sitting Exercise Ankle DF and Abduction Name Side left Resistance L3 Reps/Minutes x15 each Neuro Re-Education Treatment Balance Activities Toe-taps Details Cone toe-taps Surface AirEx Equipment #4 ankle weights Reps/Duration x5 each leg Comments CGA Uneven surface Details Tandem Stance Surface AirEx Comments Back/forth rocking, holding still w/ eyes closed Hurdles Details Hurdles - fwd/bwd, lateral Equipment // bars, #4 ankle weights Reps/Duration 2x each Comments CGA, cues to keep shoulders square PT-OP-T Assessment and Plan Start: 11/15/24 15:46 Freq: Status: Active Protocol: Document 01/22/25 15:15 LFG (Rec: 01/22/25 16:16 LFG [id number]) Physical Therapy Assessment Impairments Impairments Activity Tolerance,Balance,Functional Activities, Functional Mobility,Gait,Strength Goals Three Impairment Pt presents as a falls risk, per DGI score of 17/24 Vp Customer Service Goal (LTG) Pt to demonstrate a reduction in falls risk by scoring at least 20/24 on the DGI LTG Duration 02/13/25 Two Impairment Left LE weakness impacts gait ability Custodial Goal (LTG) Pt to improve left hip strength to at least 4/5 and left ankle strength to at least 3/5 in all tested planes in order to improve quality of gait and decrease compensatory strategies. LTG Duration 02/13/25 - improving One Impairment Pt does not have an appropriate home exercise program Short Term Goal (STG Pt to be independent and compliant with an appropriate ) HEP STG Duration 01/15/25 - improving Assessment Summary Assessment Patient tolerated today session well demonstrating good ability to self correct and regain control of her center of mass during balance training even with increased resistance. Continue to focus on balance, gait, strength, and activity tolerance. Physical Therapy Plan Frequency and Duration Frequency of 2x/Week Treatment Plan of Care Start 11/15/24 Date Plan of Care End 02/13/25 Date Therapeutic Interventions Therapeutic Balance Training,Coordination Training,Gait Training, Interventions Home Exercise Program,Joint Mobilizations,Manual Therapy,Neuromuscular Re-education,Patient/Caregiver Education,Self-Care/Home Management,Soft Tissue Mobilization,Taping,Therapeutic Activities,Therapeutic Exercises Next Visit Focus/Plan Next Note Type Treatment Note Next Visit Plan Next: Mod SLS on LLE, review backward walking POC: Gait training, LE strengthening, Balance challenges
--- NOTE | 2025-01-31 11:30 | PT.OTN ---
Current Diagnoses Unspecified sequelae of cerebral infarction (01/31/25) Unsteadiness on feet (01/31/25) Other abnormalities of gait and mobility (01/31/25) Physical Therapy Treatment Note PT-OP-A Visit Information Start: 11/15/24 15:46 Freq: Status: Active Protocol: Document 01/31/25 10:45 DCW (Rec: 01/31/25 11:30 DCW [id number]) Out-Patient Physical Therapy Visit Information Visit Information Visit Type Treatment Note Visit Start Time 10:45 Visit Stop Time 11:30 Visit Number 11 Number of REACH TRUCK OPERATOR Visits 0 Evaluation Information Evaluation Date 11/15/24 PT-OP-B Current Condition Start: 11/15/24 15:46 Freq: Status: Active Protocol: Document 11/15/24 13:45 DCW (Rec: 11/16/24 09:44 DCW [id number]) Current Condition History of Current Condition Onset Date February 2021 Current Complaints gait difficulty s/p CVA History of Current Pt is a 64 year old female presenting to skilled Condition therapy 3.5 years s/p CVA. Pt reports her biggest lingering complaints are that she drags her left foot during gait, and she has a slow gait speed. Admits she doesn't have much problems with balance, has only had two falls since her CVA, none recently. Was being treated at this clinic for this same complaint earlier this year, but due to some scheduling conflicts and a vacation out of state, was not seen for ~1 month, and her POC had . Pt returns with a new referral in order to re-start therapy. Reports her goals are to be able to walk better, and with my arm down (pt exhibits L UE flexion pattern, particularly when focusing on ambulation). Would also like to get back to swimming for exercise. PT-OP-C Subjective Start: 11/15/24 15:46 Freq: Status: Active Protocol: Document 01/31/25 10:45 DCW (Rec: 01/31/25 11:30 DCW [id number]) OP-PT Subjective Patient Comments Patient Comments Pt reports she is feeling pretty good today. PT-OP-E Functional Tests Start: 11/15/24 15:46 Freq: Status: Active Protocol: Document 11/15/24 13:45 DCW (Rec: 11/15/24 15:56 DCW [id number]) Functional Tests 30 Second Sit to Stand Test Score x11 repetitions Comments No UE use Dynamic Gait Index (DGI) Score 17/24 DGI Impairment 20 to <40% Impaired (Score 15-19) Rating Timed Up and Go (TUG) Score 13.11 Comments Three-trial average (13.54, 12.55, 13.25) PT-OP-G Mobility & Gait Start: 11/15/24 15:46 Freq: Status: Active Protocol: Document 11/15/24 13:45 DCW (Rec: 11/15/24 15:56 [facility] [id number]) OP Gait Assessment Comments Gait Comments Pt ambulates with steppage gait pattern on left, as well as left foot pronation during stance phase secondary to weakness of inversion. Stair Climbing Evaluation Evaluation Level of Assist On Independent Stairs Devices Stair Climbing None Assistive Devices Technique/Endurance Stair Climbing Ascend and Descend Direction Stair Climbing Step Over Step Technique Number of Steps 4 Climbed Stair Climbing Set # 2 Repetitions (reps) PT-OP-M Strength Start: 11/15/24 15:46 Freq: Status: Active Protocol: Document 11/15/24 13:45 DCW (Rec: 11/15/24 15:56 [facility] [id number]) Hip Strength Hip Manual Muscle Testing Right Flexion (L2) 4+ Good+ Extension (S1) 4+ Good+ Abduction 4+ Good+ Adduction 4+ Good+ External Rotation 4+ Good+ Internal Rotation 4+ Good+ Left Flexion (L2) 4 Good Extension (S1) 4+ Good+ Abduction 4- Good- Adduction 4 Good External Rotation 4- Good- Internal Rotation 4- Good- Knee Strength Knee Manual Muscle Testing Right Flexion (S2) 4+ Good+ Extension (L3) 4+ Good+ Left Flexion (S2) 4+ Good+ Extension (L3) 4+ Good+ Ankle/Foot Strength Ankle and Foot Manual Muscle Testing Right Dorsiflexion (L4) 4+ Good+ Plantarflexion (S1) 4+ Good+ Inversion 4+ Good+ Eversion (S1) 4+ Good+ Left Dorsiflexion (L4) 4+ Good+ Plantarflexion (S1) 3- Fair- Inversion 2 Poor Eversion (S1) 3- Fair- PT-OP-Q Treatments Start: 11/15/24 15:46 Freq: Status: Active Protocol: Document 01/31/25 10:45 DCW (Rec: 01/31/25 11:30 DCW [id number]) Gym Equipment Shuttle Recovery B squat Resistance 75# (three navy) Shuttle Recovery Unstable Platform Reps/Time 2x15 L squat Details Left LE cues for knee valgus Resistance 50# (two teal) Shuttle Recovery Stable Platform Reps/Time 2x15 Shuttle Balance Red Details WBOS (EO/EC), Staggered Therapeutic Exercises Standing Exercises Hip abduction Side bilateral Resistance Lv 2 loop Equipment Used BUE on handrail Reps/Minutes 10x each Hip extension Side bilateral Resistance Lv 2 loop Equipment Used BUE on handrail Reps/Minutes 2x10 ea Neuro Re-Education Treatment Balance Activities SLS Details SLS Equipment // bars Tandem Details Tandem Stance Equipment // bars PT-OP-T Assessment and Plan Start: 11/15/24 15:46 Freq: Status: Active Protocol: Document 01/31/25 10:45 DCW (Rec: 01/31/25 11:30 DCW [id number]) Physical Therapy Assessment Impairments Impairments Activity Tolerance,Balance,Functional Activities, Functional Mobility,Gait,Strength Goals Three Impairment Pt presents as a falls risk, per DGI score of 17/24 Chimney Builder Goal (LTG) Pt to demonstrate a reduction in falls risk by scoring at least 20/24 on the DGI LTG Duration 02/13/25 Two Impairment Left LE weakness impacts gait ability Halfway Goal (LTG) Pt to improve left hip strength to at least 4/5 and left ankle strength to at least 3/5 in all tested planes in order to improve quality of gait and decrease compensatory strategies. LTG Duration 02/13/25 - improving One Impairment Pt does not have an appropriate home exercise program Short Term Goal (STG Pt to be independent and compliant with an appropriate ) HEP STG Duration 01/15/25 - improving Assessment Summary Assessment Pt tolerating well today. Has upcoming surgery, may be discharging secondary to change in medical status. Did discuss potential for pt to restart with a new referral , may look into going elsewhere so she can get aquatic therapy, however may prefer to continue at this facility. Physical Therapy Plan Frequency and Duration Frequency of 2x/Week Treatment Plan of Care Start 11/15/24 Date Plan of Care End 02/13/25 Date Therapeutic Interventions Therapeutic Balance Training,Coordination Training,Gait Training, Interventions Home Exercise Program,Joint Mobilizations,Manual Therapy,Neuromuscular Re-education,Patient/Caregiver Education,Self-Care/Home Management,Soft Tissue Mobilization,Taping,Therapeutic Activities,Therapeutic Exercises Next Visit Focus/Plan Next Note Type Treatment Note Next Visit Plan Next: Mod SLS on LLE, review backward walking POC: Gait training, LE strengthening, Balance challenges
--- NOTE | 2025-02-05 15:57 | PT.OTN ---
Addendum entered and electronically signed by Terence Murphy, PT 02/05/25 16:02: PT direct supervision and direction to student PT Xiang Echols throughout session Original Note: Current Diagnoses Unspecified sequelae of cerebral infarction (02/05/25) Unsteadiness on feet (02/05/25) Other abnormalities of gait and mobility (02/05/25) Physical Therapy Treatment Note PT-OP-A Visit Information Start: 11/15/24 15:46 Freq: Status: Active Protocol: Document 02/05/25 10:45 LFG (Rec: 02/05/25 11:30 LFG Laptop) Out-Patient Physical Therapy Visit Information Visit Information Visit Type Discharge Summary Visit Start Time 10:45 Visit Stop Time 11:30 Visit Number 12 Number of TIE PULLER Visits 0 Evaluation Information Evaluation Date 11/15/24 PT-OP-B Current Condition Start: 11/15/24 15:46 Freq: Status: Active Protocol: Document 11/15/24 13:45 DCW (Rec: 11/16/24 09:44 DCW [id number]) Current Condition History of Current Condition Onset Date February 2021 Current Complaints gait difficulty s/p CVA History of Current Pt is a 64 year old female presenting to skilled Condition therapy 3.5 years s/p CVA. Pt reports her biggest lingering complaints are that she drags her left foot during gait, and she has a slow gait speed. Admits she doesn't have much problems with balance, has only had two falls since her CVA, none recently. Was being treated at this clinic for this same complaint earlier this year, but due to some scheduling conflicts and a vacation out of state, was not seen for ~1 month, and her POC had . Pt returns with a new referral in order to re-start therapy. Reports her goals are to be able to walk better, and with my arm down (pt exhibits L UE flexion pattern, particularly when focusing on ambulation). Would also like to get back to swimming for exercise. PT-OP-C Subjective Start: 11/15/24 15:46 Freq: Status: Active Protocol: Document 02/05/25 10:45 LFG (Rec: 02/05/25 11:30 LFG Laptop) OP-PT Subjective Patient Comments Patient Comments Has surgery this , anticipated missing at least 3 weeks of PT and then will also be gone until Apr 02 . PT-OP-E Functional Tests Start: 11/15/24 15:46 Freq: Status: Active Protocol: Document 11/15/24 13:45 DCW (Rec: 11/15/24 15:56 DCW [id number]) Functional Tests 30 Second Sit to Stand Test Score x11 repetitions Comments No UE use Dynamic Gait Index (DGI) Score 17/24 DGI Impairment 20 to <40% Impaired (Score 15-19) Rating Timed Up and Go (TUG) Score 13.11 Comments Three-trial average (13.54, 12.55, 13.25) PT-OP-G Mobility & Gait Start: 11/15/24 15:46 Freq: Status: Active Protocol: Document 11/15/24 13:45 DCW (Rec: 11/15/24 15:56 DCW [id number]) OP Gait Assessment Comments Gait Comments Pt ambulates with steppage gait pattern on left, as well as left foot pronation during stance phase secondary to weakness of inversion. Stair Climbing Evaluation Evaluation Level of Assist On Independent Stairs Devices Stair Climbing None Assistive Devices Technique/Endurance Stair Climbing Ascend and Descend Direction Stair Climbing Step Over Step Technique Number of Steps 4 Climbed Stair Climbing Set # 2 Repetitions (reps) PT-OP-M Strength Start: 11/15/24 15:46 Freq: Status: Active Protocol: Document 11/15/24 13:45 DCW (Rec: 11/15/24 15:56 DCW [id number]) Hip Strength Hip Manual Muscle Testing Right Flexion (L2) 4+ Good+ Extension (S1) 4+ Good+ Abduction 4+ Good+ Adduction 4+ Good+ External Rotation 4+ Good+ Internal Rotation 4+ Good+ Left Flexion (L2) 4 Good Extension (S1) 4+ Good+ Abduction 4- Good- Adduction 4 Good External Rotation 4- Good- Internal Rotation 4- Good- Knee Strength Knee Manual Muscle Testing Right Flexion (S2) 4+ Good+ Extension (L3) 4+ Good+ Left Flexion (S2) 4+ Good+ Extension (L3) 4+ Good+ Ankle/Foot Strength Ankle and Foot Manual Muscle Testing Right Dorsiflexion (L4) 4+ Good+ Plantarflexion (S1) 4+ Good+ Inversion 4+ Good+ Eversion (S1) 4+ Good+ Left Dorsiflexion (L4) 4+ Good+ Plantarflexion (S1) 3- Fair- Inversion 2 Poor Eversion (S1) 3- Fair- PT-OP-Q Treatments Start: 11/15/24 15:46 Freq: Status: Active Protocol: Document 02/05/25 10:45 LFG (Rec: 02/05/25 11:30 LFG Laptop) Gym Equipment Shuttle Recovery B squat Details 1 set stable, 1 unstable Resistance 75# (three navy) Shuttle Recovery Unstable Platform Reps/Time 2x15 L squat Details Left LE cues for knee valgus, left foot collapse Resistance 50# (two teal) Shuttle Recovery Stable Platform Reps/Time 2x15 Shuttle Balance Red Details WBOS (EO/EC), Staggered Comments CGA Therapeutic Exercises Standing Exercises Resisted walking Standing Exercise F/B/L Name Side bilateral Resistance lvl 2 below kenes Equipment Used // bars Reps/Minutes x2 Comments no UE support - close SBA HS curl Standing Exercise HS curl Name Side bilateral Resistance 5# AW Equipment Used // bars, BUE Reps/Minutes x10 Hip abduction Standing Exercise abductions Name Side bilateral Resistance 5# AW Equipment Used // bars, BUE Reps/Minutes x10 Comments cues to avoid turning hip out Neuro Re-Education Treatment Balance Activities Tandem Details Tandem Stance hold + ambulation F/B Surface stable Equipment // bars Reps/Duration x2 Comments CGA Hurdles Details Hurdles - fwd/bwd, lateral Equipment // bars, #5 ankle weights Reps/Duration 2x each Comments SBA Self-Care/Home Management Treatment Education Other Education Given new/updated HEP handout to follow independently PT-OP-T Assessment and Plan Start: 11/15/24 15:46 Freq: Status: Active Protocol: Document 02/05/25 10:45 LFG (Rec: 02/05/25 11:30 LFG Laptop) Physical Therapy Assessment Impairments Impairments Activity Tolerance,Balance,Functional Activities, Functional Mobility,Gait,Strength Goals Three Impairment Pt presents as a falls risk, per DGI score of 17/24 Nursing Home Goal (LTG) Pt to demonstrate a reduction in falls risk by scoring at least 20/24 on the DGI LTG Duration 02/13/25 Two Impairment Left LE weakness impacts gait ability Burnishing Machine Operator Goal (LTG) Pt to improve left hip strength to at least 4/5 and left ankle strength to at least 3/5 in all tested planes in order to improve quality of gait and decrease compensatory strategies. LTG Duration 02/13/25 - improving One Impairment Pt does not have an appropriate home exercise program Short Term Goal (STG Pt to be independent and compliant with an appropriate ) HEP STG Duration 01/15/25 - improving Assessment Summary Assessment Patient will be undergoing surgery this and will be traveling soon after, anticipating missing several weeks of PT. Patient was challenged in todays balance training but tolerated the session well. Pt in agreement to discharge today due to change in medical status and will continue HEP independently until she recovers from surgery and returns from her trip. Physical Therapy Plan Frequency and Duration Frequency of 2x/Week Treatment Plan of Care Start 11/15/24 Date Plan of Care End 02/13/25 Date Therapeutic Interventions Therapeutic Balance Training,Coordination Training,Gait Training, Interventions Home Exercise Program,Joint Mobilizations,Manual Therapy,Neuromuscular Re-education,Patient/Caregiver Education,Self-Care/Home Management,Soft Tissue Mobilization,Taping,Therapeutic Activities,Therapeutic Exercises Discharge Physical Therapy Discharge Reasons Change in Medical Status Next Visit Focus/Plan Next Note Type Discharge Summary Next Visit Plan Continue HEP independently
== END 2025-02-06 13:01 | disposition home or self-care (01) ==
LOC: PHYS 10:45
PROVIDERS: Family Provider Family Medicine; PCP Family Medicine; Referring Provider Family Medicine; Visit Provider Family Medicine
DX: I69.30 Unspecified sequelae of cerebral infarction (principal); R26.81 Unsteadiness on feet; R26.89 Other abnormalities of gait and mobility
CPT/HCPCS: 97110; 97112; 97116; 97163

== ENCOUNTER 2025-02-08 09:32 | Day surgery (SDC) | payer MEDICARE, OTHER, SELFPAY ==
[2025-02-01 10:57] VITALS: BMI 19.1
--- NOTE | 2025-02-08 | PATH_ITS ---
[facility] Accession Number: [id number] No. of containers..01 Tissue . 01 Material submitted: . ovary - BILATERAL OVARIES . 01 Diagnosis: BILATERAL OVARIES AND FALLOPIAN TUBES, BILATERAL SALPINGO-OOPHORECTOMY: Larger ovary (6 grams) with a benign serous cystadenoma (27 x 20 x 13 mm). First described fallopian tube segment (2.1 cm), complete cross-sections; negative for significant atypia. Smaller ovary (4 grams) with a benign serous cyst (5 mm) and corpora albicans (11 mm). Second described fallopian tube segment (2.6 cm), complete cross-sections; negative for significant atypia. [facility] 02/14/2025 1209 Local . 01 Electronically signed: . Padma Moser MD, Pathologist NPI- [id number] . 01 Gross description: . The specimen is received in formalin, labeled with two patient identifiers and bilateral ovaries, and consists of two ovaries with attached fimbriated fallopian tubes. The first ovary measures 3.5 x 1.5 x 1.1 cm (6 g) and has a smooth, white, glistening serosal surface. This ovary is inked blue and is serially sectioned to show a 2.7 x 2.0 x 1.3 cm unilocular, smooth-walled ovarian cyst. The ovarian cyst wall is uniformly thick at 0.2 cm and is white, fibrotic, and is otherwise unremarkable. There is a thin rim of surrounding white, firm, fibrotic, unremarkable ovarian parenchyma. The accompanying fimbriated fallopian tube is uninvolved and measures 2.1 cm in length by 0.4 cm in diameter and is sectioned to show a 0.2 cm pinpoint lumen. The opposing ovary measures 2.0 x 1.5 x 0.9 cm (4 g) and has a smooth, white, unremarkable serosal surface. The ovary is serially sectioned to show a 0.5 cm in greatest dimension, unilocular, smooth-walled, serous fluid-filled, simple cyst surrounded by white, homogenous, fibrotic parenchyma and a 1.1 cm in greatest dimension, yellow to white corpus albicans. The accompanying fimbriated fallopian tube measures 2.6 cm in length by 0.4 cm in diameter and has a guzman-purple, unremarkable serosal surface. Sectioning shows a 0.2 cm stellate lumen. Business Support Manager sections are submitted as follows: A1-A4: Entire larger cystic ovary, entirely submitted. A5: Fimbriated fallopian tube associated with larger cystic ovary (fimbriated end entirely submitted). A6-A7: Smaller ovary with simple ovarian cyst, entirely submitted. A8: Business Support Manager sections of accompanying fimbriated fallopian tube of smaller ovary (to include entire fimbriated end). ([id number]) /FRR 02/10/2025 1531 Local . 01 Pathologist provided ICD-10: N83.292 . 01 CPT . 696452 Specimen Comment: A courtesy copy of this report has been sent to [facility] Pathology Performed at: [address] [address], [place], [place] [id number] MD Jasiel Caraballo MD Phone: [phone]
[2025-02-08 10:01] VITALS: BP 132/79; PULSE 84; RESP 14; O2SAT 100
[2025-02-08 10:03] VITALS: BMI 19.1
[2025-02-08] MEDS: LACTATED RINGERS 1,000 ML 42 ML IV (10:16)
[2025-02-08] MEDS: ACETAMINOPHEN IV 1,000 MG/100 ML VIAL 400 MG IV (10:16)
[2025-02-08] MEDS: FAMOTIDINE 20 MG/2 ML VIAL IV (10:16)
--- NOTE | 2025-02-08 10:37 | PM.GYNHP.1 ---
History of Present Illness History of Present Illness Narrative: Laurel Lindsey is a 64 year old female with a history of a complex ovarian cyst, previously counseled regarding observation vs. surgical management, and patient desires to proceed with definitive surgical management with bilateral oophorectomy. She has no new concerns or changes to her medical history. [facility] Medical History (Updated 02/01/25 @ 11:08 by Brissa Martinez RN) GERD (gastroesophageal reflux disease) Atrophic vaginitis Urinary, incontinence, stress female Ovarian cyst, bilateral History of colonic polyps Surgical History History of hysterectomy History of cholecystectomy Family History Father Cancer Stroke Social History household members: spouse Smoking Status: Never smoker alcohol intake: never substance use type: does not use Meds Home Medications and Allergies Home Medications ?Medication ?Instructions ?Recorded ?Confirmed ?Type aspirin 81 mg chewable tablet 81 mg PO DAILY 90 days #90 tabs 06/17/23 02/08/25 Rx atorvastatin 40 mg tablet 40 mg PO DAILY #90 tabs 06/07/24 02/08/25 Rx estradiol 0.01% (0.1 mg/gram) 1 g vaginal 3XW #42.5 grams 10/13/24 02/08/25 Rx vaginal cream Disabled Parking See Rx Instructions .Route 10/19/24 10/19/24 Rx .COMPLEX #365 days ferrous sulfate 325 mg (65 mg 65 mg PO .3xweek 02/01/25 02/01/25 History iron) tablet (Feosol) Allergies Allergy/AdvReac Type Severity Reaction Status Date / Time sulfamethoxazole (From Allergy Severe Rash Verified 02/08/25 10:00 Sept) trimethoprim (From [place]ra) Allergy Severe Rash Verified 02/08/25 10:00 Review of Systems Review of Systems ROS: Yes All systems reviewed with the patient and are negative except as otherwise documented Exam Vital Signs (past 8 hours): - 02/08/25 10:01 Pulse Rate 84 Respiratory Rate 14 Blood Pressure 132/79 Pulse Oximetry 100 Oxygen Delivery Method Room Air Oxygen Delivery Method Room Air Const General: healthy appearing, comfortable and No acute distress Resp Effort & Inspection: normal respiratory effort and able to speak in complete sentences GI Other: soft, nontender, nondistended Neuro Cognition: normal cognition Speech: speech normal Psych Mood: congruent mood Affect: normal affect Objective Imaging US - abdomen: Radiologist's impression: FINDINGS: Image quality: Excellent. Uterus: Status post hysterectomy. Adnexa: Normal appearance of the right ovary. There is again seen a left adnexal cystic lesion measuring 3.2 x 2.75 cm. This has a thin internal septation inferiorly as well as a apparent 7 mm posterior mural nodule with low T2 and increased T1 signal on the unenhanced images. No definite enhancement. Urinary system: Bladder wall is normal in thickness. Distal ureters are non distended. Urethra appears normal in morphology. Nodes and vessels: No pelvic or inguinal adenopathy by size criteria. Iliac vessels are normal in size. Bowel and peritoneum: No pathologic free pelvic fluid. Inferior colon and small bowel loops are normal in caliber. Soft tissues: No inguinal hernias. No findings of pelvic floor incompetence in the absence of provocation. Bones: Marrow demonstrates normal overall signal. IMPRESSION: 1. Minimally complex left adnexal cystic lesion measuring up to 3.2 cm, with a probable 7 mm hemorrhagic mural nodule. This is most likely benign, can be reassessed with follow-up MRI in 6 months for stability. 2. No adenopathy or other suspicious focal lesion seen. Dictated by: Ankit Lemos M.D. on 12/02/2024 at 13:40 Approved by: Ankit Lemos M.D. on 12/02/2024 at 13:51 Assessment & Plan Assessment and plan (1) Complex cyst of left ovary: Status: Acute Assessment & Plan narrative: 64yo F with history of ovarian cysts, now with complex ovarian cyst seen on last imaging with negative CA-125 and HE-4, counseled and consented for definitive surgical management with bilateral oophorectomy. We reviewed the risk/benefit of the procedure, and surgical consent was signed today. We reviewed postop expectations, and given her history of VTE after her cholecystectomy, will plan for 10 days of prophylactic lovenox postop. -plan for same day procedure Surgery consent We discussed the risks/benefits/alternatives to the proposed procedure, to include but not limited to: -risk of bleeding, requiring medications, blood products, or other procedures as indicated -risk of infection, requiring prolonged hospital stay or other procedures -risk of injury to other structures, including bowel, bladder, blood vessels, nerves, etc. which may also require additional procedures -risk of adverse reaction to anesthesia or medications -risk of venous thromboembolism and associated sequelae -risk of rare complications such as cardiac arrest, or extremely rarely, Patient is aware of the risks, and desires to proceed with planned surgical procedure. Time-Based Coding :: [30min] spent with patient and on the chart (including review of chart, obtaining history, exam, reviewing outside data, placing orders, documenting exam and treatment plan, and counseling patient) on [02/08/25].
--- NOTE | 2025-02-08 11:17 | SUR.OPER ---
Supine on padded OR bed, head on pillow, arms secured on padded arm boards at <90 degrees abduction, legs uncrossed, safety belt at thigh, tape over blanket over lower legs.
[2025-02-08] MEDS: BUPIVACAINE 0.25% (PF) VIAL 30 ML INJ (11:21)
--- NOTE | 2025-02-08 12:54 | P.OP_ITS ---
Operative Date/Time/Diagnoses Date of procedure: 02/08/25 Time of procedure: 11:15 Pre-op diagnosis: Complex left ovarian cyst Post-op diagnosis: same Procedure & Clinicians Procedure: Robotic-assisted laparoscopic bilateral oophorectomy Lysis of adhesions Same procedure(s) as scheduled: Yes Indications: 64yo F with known complex left ovarian cyst, desiring definitive management. Surgeon: Cassandra Hyatt Click Yes if Unassisted: Yes Anesthesia Type: General Operative Notes Findings: Adhesions between the omentum and the anterior abdominal wall. Adhesions present between the sigmoid colon and the pelvic sidewall. 40min spent for lysis of adhesions. Right ovary with fimbirated fallopian tube remnant appeared normal. Left ovary enlarged with multicystic components, with simple fluid expressed from the left ovary when punctured during dissection. Specimen(s): other (bilateral ovaries) Applied: none Estimated Blood Loss (mL): 5 Blood products transfused: none Procedure in detail: The risks, benefits, indications and alternatives of the procedure were reviewed with the patient and informed consent was obtained. The pt was taken to the operating room where general anesthesia was obtained without difficulty. The pt was then placed in the supine position, and a myrick catheter was placed. Pt was then prepped and draped in the usual sterile fashion. Attention was then turned to the patient?s abdomen where an 8mm skin incision was made in the superior aspect of the umbilicus after injection of 0.25% marcaine. An 8mm trocar and sleeve were then carefully introduced into the peritoneal cavity under direct visualization at a 90-degree angle while tenting up the abdominal wall. Intra-peritoneal placement was confirmed under direct visualization with the laparoscope with entry pressure <5mmHg. A pneumoperitoneum was obtained with several liters of CO2 gas, maximum pressure of 15mmHg. Upon entry into the peritoneal cavity, structures immediately below the incision were inspected and found to be free of injury. Two additional 8mm trocars were placed on the left and right lateral aspect of the abdominal wall, along with a 12mm port placed in the left upper quadrant, all under direct laparoscopic visualization after injection of 0.25% marcaine at each site. The [employer] surgical robot was then docked and instruments introduced into the abdomen under direct visualization. Control was then turned over to the surgeon console. The omental adhesions were then taken down the vessel-sealer. The right ovary and fimbriated fallopian tube segment were visualized, and the right ureter was visualized with its course noted through the peritoneum. The right ovary was then grasped, and the right infundibulopelvic ligament was cauterized and ligated with vessel sealer. The right ovary and tubal segment were then freed from the pelvic sidewall adhesions using careful dissection with the vessel sealer. Attention was then turned to the left side, where the ovary was not visualized due to significant adhesions of the sigmoid colon. Careful dissection of the colon from the pelvic sidewall was performed with cold scissors and monopolar cautery as needed. After the colon was mobilized, the left ovary was visualized and also was adhesed to the pelvic sidewall. Careful dissection of the ovary from the sidewall was performed with cold scissors and monopolar cautery. Once mobilized, and the left ureter visualized with its course through the peritoneum, the left infundibulopelvic ligament was cauterized and transected with the vessel sealer. Once both ovaries were removed from their pedicles, the pedicles were reinspected and noted to be hemostatic. An endocatch bag was then inserted through the 12mm port, and both ovaries were placed inside, along with the tubal segments that were part of the specimens. The instruments were then removed, gas turned off, and the robot was undocked. The endocatch bag was removed with the 12mm port from the abdominal wall. The 12mm port fascial incision was then closed with an 0-vicryl suture. The skin incisions of all 4 ports were closed with 4-0 monocryl and covered with Dermabond. The myrick catheter was removed. At the completion of the case, the sponge and needle counts were correct x 2. The patient tolerated the procedure well and was taken to the PACU in stable condition. 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
[2025-02-08 12:55] VITALS: BP 99/58; PULSE 79; RESP 16; TEMP 36.2; O2SAT 99
[2025-02-08 13:00] VITALS: BP 113/62; PULSE 77; RESP 16; O2SAT 98
[2025-02-08 13:05] VITALS: BP 140/70; PULSE 86; RESP 16; O2SAT 98
[2025-02-08 13:12] VITALS: BP 123/74; PULSE 89; RESP 16; O2SAT 98
[2025-02-08 13:26] VITALS: BP 130/70; PULSE 74; RESP 16; TEMP 36.2; O2SAT 98
== END 2025-02-08 14:20 | disposition home or self-care (01) ==
PROVIDERS: PCP Family Medicine; Referring Provider Student in an Organized Health Care Education/Training Program; Visit Provider Student in an Organized Health Care Education/Training Program
PROC: 8E0W4CZ Robotic Assisted Procedure of Trunk Region, Percutaneous Endoscopic Approach (ICD-10-PCS; CPT 58661; principal; 2025-02-08 11:00)
DX: N83.299 Other ovarian cyst, unspecified side (principal); K66.0 Peritoneal adhesions (postprocedural) (postinfection)
CPT/HCPCS: 58661; S2900; J0131; J1100; J1885; J2250; J2405; J2704; J3010; J3490

== ENCOUNTER → 2025-05-28 08:48 | Outpatient (CLI) | payer MEDICARE, OTHER, SELFPAY ==
[2025-05-28 09:26] LABS: Hematocrit 36.6 % (36-46); Hemoglobin 12.3 g/dL (12.0-16.0); Mean Corpuscular HGB Conc 33.7 % (30-36); Mean Corpuscular Hemoglobin 30.0 PG (26-34); Mean Corpuscular Volume 89.1 fL (80-100); Platelet Count 226 X10^3/uL (150-400)
[2025-05-28 09:33] LABS: Hemoglobin A1C% w Est Avg Glu 6.1 % (4.0-6.0)
[2025-05-28 09:49] LABS: Alanine Aminotransferase 24 IU/L (<35); Albumin 4.4 g/dL (3.5-5.0); Albumin Globulin Ratio 1.5 (1.0-2.8); Alkaline Phosphatase 90 U/L (38-126); Blood Urea Nitrogen 13 mg/dL (7-17); Calcium 9.6 mg/dL (8.4-10.2); Carbon Dioxide 28 mmol/L (22-32); Chloride 104 mmol/L (98-107); Cholesterol 147 mg/dL (140-199); Estimated Glomerular Filt Rate > 60 mL/min (>60); Globulin 2.9 g/dL (1.7-4.1); Glucose 103 mg/dL (70-99); HDL Cholesterol 61 mg/dL (40-60); HEMOLYSIS < 15 (0-50); Potassium 4.6 mmol/L (3.4-5.1); Sodium 141 mmol/L (137-145); Total Protein 7.3 g/dL (6.3-8.2); Triglycerides 95 mg/dL (35-150)
== END ==
PROVIDERS: Family Provider Family Medicine; PCP Family Medicine; Referring Provider Family Medicine; Visit Provider Family Medicine
DX: I10 Essential (primary) hypertension (principal); R73.03 Prediabetes; I69.30 Unspecified sequelae of cerebral infarction
CPT/HCPCS: 36415; 80053; 80061; 82043; 82172; 82570; 83036; 83695; 85027

== ENCOUNTER → 2025-05-31 09:48 | Outpatient (CLI) | payer MEDICARE, OTHER, SELFPAY ==
--- NOTE | 2025-05-31 09:49 | DI.RAD.S_ITS ---
PROCEDURE: XR DEXA AXIAL SKELETON INDICATIONS: Osteoporosis screening COMPARISON: None. FINDINGS: Lumbar Spine: Bone mineral density 1.024 g/cm2, T score -0.2. Left Femoral Neck: Bone mineral density 0.830 g/cm2, T score -0.2. Left Hip: Bone mineral density 0.876 g/cm2, T score -0.5. Fracture Risk Calculation (when applicable): 10-year fracture risk of a major osteoporotic fracture 6.0 percent and of a hip fracture 0.3 percent. (T score greater or equal to -1.0 to: NORMAL) (T score from -1.1 to -2.4: OSTEOPENIA) (T score less than or equal to -2.5: OSTEOPOROSIS) IMPRESSION: Normal bone mineral density. Follow-up guidelines as follows: Osteoporosis: Consider a repeat DEXA and Vertebral Fracture Assessment (VFA) exam in 2 years or sooner if medically necessary, to reassess this patient's status. Osteopenia: Consider a repeat DEXA in 2-3 years to reassess this patient's status, or if there is a new clinical indication. Normal: Consider a repeat DEXA in 5 years or sooner, or if there is a new clinical indication. All treatment decisions require clinical judgment and consideration of individual patient factors, including patient preferences, comorbidities, previous drug use, risk factors not captured in the FRAX model (e.g., frailty, falls, vitamin D deficiency, increased bone turnover, interval significant decline in bone density ) and possible under- or over-estimation of fracture risk by FRAX. In addition, the NOF Guide recommends that FDA-approved medical therapies be considered in postmenopausal women and men age >= 50 years with a: * Hip or vertebral (clinical or morphometric) fracture * T-score of <=-2.5 at the spine or hip * Ten-year fracture probability by FRAX of >= 3% for hip fracture or >=20% for major osteoporotic fracture. Dictated by: Maik Miles M.D. on 05/31/2025 at 11:36 Approved by: Maik Miles M.D. on 05/31/2025 at 11:36
== END ==
PROVIDERS: Family Provider Family Medicine; PCP Family Medicine; Referring Provider Family Medicine; Visit Provider Family Medicine
DX: Z13.820 Encounter for screening for osteoporosis (principal); Z78.0 Asymptomatic menopausal state
CPT/HCPCS: 77080